=== PATIENT | female | born 1950 | race African-American/Black ===

== ENCOUNTER → 2020-08-03 10:59 | Outpatient (CLI) | payer MEDICARE, SELFPAY ==
--- NOTE | ~2020-08-03 | MM_ITS ---
EXAMINATION: MM screening elvira BI w jennifer HISTORY: Screening TECHNIQUE: Craniocaudal and mediolateral oblique 3-D tomosynthesis images were obtained and synthetic 2-D images were generated. CAD analysis was submitted and interpreted. COMPARISON: Comparison to multiple prior studies sequentially, with oldest reviewed study dated 09/2014. BREAST PARENCHYMAL COMPOSITION: There are scattered areas of fibroglandular density. FINDINGS: There is no evidence of suspicious mass, calcification, or architectural distortion to sugg est malignancy in either breast. There has been no suspicious interval change. IMPRESSION: 1. No mammographic evidence of malignancy. 2. Recommend routine screening mammography in one year. BI-RADS Category 1: Negative Reviewed, dictated and finalized at location A. MIC PROSPECTING OBSERVER
== END ==
PROVIDERS: PCP Family Medicine; Visit Provider Obstetrics & Gynecology
DX: Z12.31 Encounter for screening mammogram for malignant neoplasm of breast (principal)
CPT/HCPCS: 77063; 77067

== ENCOUNTER 2020-10-13 10:54 | Outpatient (CLI) | payer MEDICARE, SELFPAY ==
--- NOTE | ~2020-10-13 | US_ITS ---
EXAMINATION: US venous doppler LE RT DATE: 10/13/2020 11:36 INDICATION: Right lower limb swelling TECHNIQUE: Grayscale ultrasound images without and with compression and Doppler ultrasound images of the right lower extremity veins were obtained. COMPARISON: None. FINDINGS: The visualized portions of right common femoral vein, profunda (deep) femoral vein, femoral vein, pop liteal vein, peroneal trunk, posterior tibial veins, peroneal veins, gastrocnemius vein and greater s aphenous vein outflow are patent. IMPRESSION: 1. No deep venous thrombosis in the right lower limb. Reviewed, dictated and finalized at location B.
--- NOTE | ~2020-10-13 | XR_ITS ---
EXAMINATION: XR knee RT 3V DATE: 10/13/2020 11:39 INDICATION: Right knee pain. TECHNIQUE: 3 views of right knee were obtained. COMPARISON: None. FINDINGS: Bone alignment is normal. No fracture. There is mild tricompartmental osteoarthritis. There is a small knee joint effusion. IMPRESSION: 1. Mild right knee osteoarthritis. 2. Small right knee joint effusion. Reviewed, dictated and finalized at location A.
== END 2020-10-13 10:55 | disposition home or self-care (01) ==
LOC: ANHIMG 11:03
PROVIDERS: PCP Family Medicine; Visit Provider Family Medicine
DX: M79.89 Other specified soft tissue disorders (principal); M17.11 Unilateral primary osteoarthritis, right knee; M25.461 Effusion, right knee
CPT/HCPCS: 73562; 93971

== ENCOUNTER → 2021-05-05 12:32 | Outpatient (CLI) | payer MEDICARE, SELFPAY ==
--- NOTE | ~2021-05-05 | US_ITS ---
EXAMINATION: US renal BI EXAM DATE: 05/05/2021 12:52 INDICATION: Stage 3b CKD . TECHNIQUE: Multiple grayscale and Doppler images of the kidneys were obtained (by a technologist who performed the scan) and subsequently reviewed. There is no prior study for comparison. FINDINGS: Mild bilateral renal cortical thinning. Right kidney: There is normal contour and mildly increased echogenicity. It measures 8.9 x 5.2 x 4.7 centimeters. There are 2 anechoic right renal lesions, largest measuring 2 cm, consistent with cysts . There is no hydronephrosis. Left kidney: There is normal contour and mildly increased echogenicity. It measures 10.1 x 5.8 x 5.4 centimeters. There are no focal renal lesions identified. There is no hydronephrosis. Bladder unremarkable. IMPRESSION: 1. Mildly increased renal echogenicity, medical renal disease. 2. Mild renal atrophy. Reviewed, dictated and finalized at location A.
== END ==
PROVIDERS: Visit Provider Internal Medicine Nephrology
DX: N18.32 Chronic kidney disease, stage 3b (principal); N26.1 Atrophy of kidney (terminal)
CPT/HCPCS: 76775

== ENCOUNTER → 2021-11-30 11:07 | Outpatient (CLI) | payer MEDICARE, SELFPAY ==
--- NOTE | ~2021-11-30 | MM_ITS ---
EXAMINATION: MM screening elvira BI w jennifer HISTORY: Screening mammogram TECHNIQUE: Craniocaudal and mediolateral oblique 3-D tomosynthesis images were obtained and synthetic 2-D images were generated. CAD analysis was submitted and interpreted. COMPARISON: 08/03/2020, 07/14/2018, 05/27/2017 bilateral screening mammogram examinations BREAST PARENCHYMAL COMPOSITION: There are scattered areas of fibroglandular density. FINDINGS: There is a circumscribed 7 mm opacity deep in the posterior upper outer quadrant of the rig ht breast. Diagnostic right mammogram and targeted right breast ultrasound examination are recommende d. Otherwise there is is no evidence of suspicious mass, calcification, or architectural distortion to s uggest malignancy in either breast. There has been no other suspicious interval change. IMPRESSION: 1. 7 mm mass in posterior upper outer right breast 2. Diagnostic right mammogram and targeted right breast ultrasound examination are recommended BI-RADS Category 0: Incomplete: Needs additional imaging evaluation. Reviewed, dictated and finalized at location A.
== END ==
PROVIDERS: PCP Family Medicine; Visit Provider Obstetrics & Gynecology
DX: Z12.31 Encounter for screening mammogram for malignant neoplasm of breast (principal); R92.8 Other abnormal and inconclusive findings on diagnostic imaging of breast
CPT/HCPCS: 77063; 77067

== ENCOUNTER → 2021-12-22 09:00 | Outpatient (CLI) | payer MEDICARE, SELFPAY ==
--- NOTE | ~2021-12-22 | MMUS_ITS ---
EXAMINATION: MM diagnostic elvira RT w jennifer, US breast RT limited HISTORY: Follow-up right breast mass TECHNIQUE: Additional 3-D tomosynthesis images of the right breast were performed and synthetic 2-D i mages were generated. CAD analysis was submitted and interpreted. High resolution Limited right breas t ultrasound was performed. COMPARISON: Comparison to multiple prior studies sequentially, with oldest reviewed study dated 02/16. BREAST PARENCHYMAL COMPOSITION: Breast composed of scattered areas of fibroglandular density FINDINGS: MAMMOGRAPHIC FINDINGS: There is a mass in the upper outer quadrant of the right breast posteriorly with circumscribed margin s and central lucency. No suspicious calcifications or architectural distortion. ULTRASOUND: Limited right breast ultrasound: At 10-11:00, 15 cm from the nipple there is a 7 mm cyst correspondin g to the mammographic finding. No suspicious sonographic abnormalities to suggest malignancy. IMPRESSION: 1. No evidence for malignancy in the right breast. 2. Routine yearly screening mammogram and regular clinical breast examination are recommended. BI-RADS Category 2: Benign finding(s). Reviewed, dictated and finalized at location A. IMPRESSION: 1. No evidence for malignancy in the right breast. 2. Routine yearly screening mammogram and regular clinical breast examination a re recommended. BI-RADS Category 2: Benign finding(s).
== END ==
PROVIDERS: PCP Family Medicine; Visit Provider Obstetrics & Gynecology
DX: R92.8 Other abnormal and inconclusive findings on diagnostic imaging of breast (principal)
CPT/HCPCS: 76642; 77061; 77065; G0279

== ENCOUNTER 2022-07-11 17:31 | Inpatient (IN) | payer MEDICARE, SELFPAY ==
--- NOTE | ~2022-07-11 | XR_ITS ---
Supine and upright views of the abdomen Clinical history: NG tube placement Findings: NG tube in satisfactory position, tip in the stomach. Several mildly dilated small bowel lo ops are present. No free air evident. No abnormal mass lesion or calcification is seen. Osseous struc tures are intact. Impression: NG tube in place. Possible small bowel obstruction. Reviewed, dictated and finalized at [facility]. GER TRANSPLANT Impression: NG tube in place. Possible small bowel obstruction.
--- NOTE | ~2022-07-11 | CT_ITS ---
EXAMINATION: CT abdomen pelvis wo con DATE: 07/11/2022 21:08 INDICATION: n/v/d andominal pain TECHNIQUE: Computed tomography (CT) of the abdomen and pelvis was performed without intravenous contr ast. Automated exposure control and iterative reconstruction technique were employed. The dose-length product was 1069.01 mGy-cm. COMPARISON: None. FINDINGS: Lower thorax: Mild dependent atelectasis/scar. Coronary artery and aortic valve calcification. Liver: Normal. Biliary/Gallbladder: Cholelithiasis. No bile duct dilation. Pancreas: No mass or duct dilation. Spleen: Normal. Adrenals:No mass. Kidneys: Left midpole cyst. Hemorrhagic or proteinaceous right lower pole cyst. Additional hypodensit ies that are too small to characterize. No obstructing calculus. No hydronephrosis. GI tract: Diffusely dilated small bowel with interloop fluid. No pneumatosis. No portal venous gas. T ransition point in the right mid abdomen (image 121/213). Normal appendix. Mesentery/Peritoneum: Small volume ascites. No mass or free air. Retroperitoneum: No mass. Atherosclerotic abdominal aortic and/or arterial calcifications. Pelvis: Decompressed urinary bladder. Surgically absent uterus. Soft Tissues: Soft tissues and body wall unremarkable. Bones: Rounded lucencies in multiple vertebral bodies. IMPRESSION: 1. High-grade small bowel obstruction, transition point in the mid right abdomen, possibly secondary to adhesion. 2. Multiple lytic vertebral body lesions, correlate with history of malignancy. Consider nuclear medi cine bone scanning for further evaluation. Reviewed, dictated and finalized at location K. TER IMPRESSION: 1. High-grade small bowel obstruction, transition point in the mid right abdome n, possibly secondary to adhesion. 2. Multiple lytic vertebral body lesions, correlate with history of malignancy. Consider nuclear medicine bone scanning for further evaluation.
--- NOTE | ~2022-07-11 | XR_ITS ---
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 Comparison: 10/08/2004. RESULT: Lines, tubes, and devices: None. Lungs and pleura: Slightly decreased lung volumes with senescent changes. Cardiomediastinal silhouette: Stable. Other: No acute osseous finding. Loops of mildly dilated small bowel in the upper abdomen. IMPRESSION: No acute cardiopulmonary process. Dilated small bowel loops in the upper abdomen, consider abdominal radiograph series for further evaluation. Reviewed, dictated and finalized at location K. NG MACHINE OPERATOR IMPRESSION: No acute cardiopulmonary process. Dilated small bowel loops in the upper abdome n, consider abdominal radiograph series for further evaluation.
--- NOTE | ~2022-07-11 | XR_ITS ---
XR abdomen/kub 1V 07/15/2022 10:25 Indication: Bowel obstruction follow-up Procedure: AP portable abdomen Comparison: 07/12/2022 Findings: Decreased small bowel distention since prior examination. There is gas throughout the colon . Lung bases unremarkable. Moderate lumbar spondylosis. No abnormal calcifications. No evidence for o rganomegaly. Impression: 1: Improved small bowel distention which may represent resolving ileus or partial obstruction. Reviewed, dictated and finalized at location A. ERNMAKER WOOD Impression: 1: Improved small bowel distention which may represent resolving ileus or parti al obstruction.
--- NOTE | ~2022-07-11 | XR_ITS ---
EXAMINATION: XR sm bowel follow through DATE: 07/12/2022 13:25 INDICATION: Small bowel obstruction TECHNIQUE: Drum Worker radiograph(s) of the abdomen was/were obtained. Oral contrast was administered, and sequential radiographs of the abdomen were obtained until oral contrast was noted to be in the proxi mal colon. COMPARISON: None. FINDINGS: Drum Worker radiograph demonstrates the nasogastric tube in the gastric antrum. Transit time from the stomach to proximal colon was approximately three hours. There are multiple persistently dilated loops of small bowel. No tethering or abnormal mass effect observed. IMPRESSION: 1. Dilated small bowel, consistent with partial obstruction. Reviewed, dictated and finalized at location A. NESS MANAGEMENT ANALYST
--- NOTE | ~2022-07-11 | NM_ITS ---
EXAMINATION: NM bone scan whole body DATE: 07/16/2022 15:29 INDICATION: Bone lesions TECHNIQUE: 25.9 mCi Tc-99m HDP was administered intravenously. Delayed whole-body scintigrams were o btained. COMPARISON: CT abdomen and pelvis dated 07/11/2022 FINDINGS: Mild likely degenerative joint centered uptake at the bilateral sternoclavicular and acromioclavicula r joints, the bilateral hands and wrists and bilateral knees as well as at the right elbow. Mild upta ke along the lateral margins of the thoracic spine corresponding to prominent bridging endplate osteo phytes consistent with diffuse idiopathic skeletal hyperostosis (DISH). Increased likely due to cente red uptake at the left anterior side of the lower cervical spine which could be related to additional degenerative endplate osteophytes or disc disease. Mild uptake associated with severe facet osteoart hritis bilaterally at the lower lumbar spine. No evident foci of significant increased uptake central ly at the L5 and L1 vertebral bodies to correspond to the lytic lesion seen on the prior CT. No other suspicious foci of abnormal bone uptake. IMPRESSION: 1. Typical pattern of scattered likely degenerative joint and disc centered uptake as detailed above. No suspicious foci of increased uptake corresponding to the lytic lesion seen centrally at the L1 an d L5 vertebral bodies. It should be noted however that bone scan can have low sensitivity for either multiple myeloma or lytic metastatic disease. Of note the larger lesion at L5 demonstrates central fa t attenuation on the prior CT images which would favor a hemangioma. Could also consider further eval uation with SPEP/UPEP levels. Reviewed, dictated and finalized at location A. ER GILL NET IMPRESSION: 1. Typical pattern of scattered likely degenerative joint and disc centered upt [place] as detailed above. No suspicious foci of increased uptake corresponding to the lytic lesion seen centrally at the L1 and L5 vertebral bodies. It should be noted however that bone scan can have low sensitivity for either multiple myel rose marie or lytic metastatic disease. Of note the larger lesion at L5 demonstrates c entral fat attenuation on the prior CT images which would favor a hemangioma. C ould also consider further evaluation with SPEP/UPEP levels.
[2022-07-11 17:42] VITALS: BP 107/51; PULSE 116; RESP 20; TEMP 37.1; O2SAT 100
--- NOTE | 2022-07-11 17:45 | ECG_ITS ---
Measurements Intervals [place] Rate: 110 P: 37 GA: 153 QRS: -12 QRSD: 89 T: 98 QT: 305 QTc: 413 Interpretive Statements SINUS TACHYCARDIA LEFT VENTRICULAR HYPERTROPHY AND ST-T CHANGE BORDERLINE R WAVE PROGRESSION, ANTERIOR LEADS CONSIDER INFERIOR INFARCT, AGE INDETERMINATE BASELINE ARTIFACT- V6 ABNORMAL ECG NO PREVIOUS ECG AVAILABLE FOR COMPARISON Electronically Signed On 07-11-2022 20:43:54 MAILROOM COURIER by Wilson Garza D.O.
[2022-07-11 19:17] LABS: Alanine Aminotransferase 38 U/L (6-35); Albumin Level 4.5 g/dL (3.5-5.1); Alkaline Phosphatase 61 U/L (38-126); Anion Gap 8 mmol/L (8-16); Aspartate Amino Transferase 33 U/L (14-36); Bilirubin,Total 0.7 mg/dL (0.2-1.3); Blood Urea Nitrogen 34 mg/dL (7-17); Calcium 10.5 mg/dL (8.4-10.2); Carbon Dioxide 28 mmol/L (22-30); Chloride 97 mmol/L (98-107); Estimated CRCL calculation 13 ml/min; Estimated Glomerular Filt Rate 14; Glucose 147 mg/dL (65-110); Lipase 244 U/L (23-300); Potassium 4.9 mmol/L (3.4-5.0); Sodium 133 mmol/L (137-145)
[2022-07-11 19:21] LABS: Basophils Percent Auto 0.2 % (0.2-1.2); Eosinophils Percent Auto 0.4 % (0-4.4); Hemoglobin 11.3 g/dL (12.0-15.0); Immature Granulocyte Absolute 0.03 K/mm3 (0.00-0.031); Immature Granulocyte Percent A 0.3 % (0-0.5); Lymphocytes Absolute Auto 1.75 K/mm3 (0.9-3.2); Lymphocytes Percent Auto 19.3 % (18.3-44.2); Mean Corpuscular HGB Conc 29.7 g/dl (32-36); Mean Corpuscular Hemoglobin 21.9 pg (26-34); Mean Corpuscular Volume 73.8 fl (80-100); Mean Platelet Volume 10.3 fl (7.4-10.4); Monocytes Absolute Auto 0.5 K/mm3 (0.1-0.6); Monocytes Percent Auto 5.2 % (2.6-8.5); Neutrophils Absolute Auto 6.7 K/mm3 (1.3-6.7); Neutrophils Percent Auto 74.6 % (45.5-73.1); Platelet Count Result 360 k/mm3 (150-375); Red Blood Count 5.15 M/mm3 (4.2-5.4); Red Cell Distribution Width 13.6 % (11.5-14.5); White Blood Count 9.1 K/mm3 (4.5-10.0)
[2022-07-11 19:57] LABS: Hypochromasia 1+ (NORMAL); Microcytosis 1+ (NORMAL); Ovalocytes 2+ (NORMAL); Platelet Estimate Adequate (Adequate); Poikilocytosis 2+ (NORMAL); Schistocytes None Seen (NORMAL)
--- NOTE | 2022-07-11 20:55 | ED.GENADULT ---
HPI - General Adult General Chief complaint: Nausea/Vomiting/Diarrhea Stated complaint: vomiting, diarrhea Time Seen by Provider: 07/11/22 20:43 History of Present Illness HPI narrative: 72-year-old female with history of chronic kidney disease, high cholesterol, type 2 diabetes and hypertension presenting the emergency department for evaluation of worsening nausea vomiting and diarrhea. Patient was diagnosed with COVID on 06/27 and was started on Paxil over the 06/29. Patient reports since starting the Paxil that she has had persistent nausea vomiting and diarrhea. Patient reports decreased p.o. intake and decreased urine output. Patient does follow-up with Dr. Diaz for chronic kidney disease. Patient reports a prior surgical history of hysterectomy in 1984. Related Data Home Medications Medication Instructions Recorded Confirmed aspirin 81 mg tablet,delayed 81 mg PO DAILY 01/30/21 04/17/22 release cholecalciferol (vitamin D3) 50 50 mcg PO DAILY 01/30/22 04/17/22 mcg (2,000 unit) tablet Allergies Allergy/AdvReac Type Severity Reaction Status Date / Time iohexol Allergy Mild Vomiting Verified 04/17/22 10:46 [From CONTRAST - CT, XRAY] codeine Allergy Unknown Other Verified 04/17/22 10:46 Review of Systems Review of Systems: CONSTITUTIONAL: Denies fever, chills, or sweats. EYES: Denies visual changes, redness, or discharge. ENT: Denies rhinorrhea, congestion, sore throat, or otalgia. CARDIOVASCULAR: Denies chest pain, palpitations, or edema. RESPIRATORY: Denies cough or dyspnea. GASTROINTESTINAL: See HPI GENITOURINARY: Denies dysuria or hematuria. SKIN: Denies rash or itching. MUSCULOSKELETAL: Denies back pain, joint pain, or myalgia. NEUROLOGIC: Denies headache, numbness, or weakness. [facility] Past Medical History Medical History Arthritis CKD (chronic kidney disease) stage 3, GFR 30-59 ml/min Dyslipidemia Essential (primary) hypertension GERD without esophagitis History of deep venous thrombosis (DVT) of distal vein of left lower extremity 1990s Type 2 diabetes mellitus without complication, without long-term current use of insulin Vitamin D deficiency Surgical History Surgical History History of hysterectomy 1985 History of superficial parotidectomy 1999 - benign tumor History of toe surgery 2004 - Right foot 5th toe surgery Hx of lumbosacral spine surgery 1994 Family History Family History Grandparent Diabetes mellitus Sibling Hypertension Father Cerebrovascular accident Mother Carcinoma of colon Other Family history of coronary artery disease Social History Social History Smoking status: Never smoker Second hand tobacco smoke exposure: No Alcohol intake: current Alcohol use details: occasionnally Substance use: never Substance use type: does not use Gender identity (if verbalized by the patient): Female Agree to blood products: Yes Exam Narrative: APPEARANCE: Well appearing, no pain, no distress, well-nourished. HEAD: normocephalic, atraumatic. EYES: PERRLA/EOMI, conjunctivae clear. NOSE: Normal no drainage EARS:TMS clear with good light reflex. NECK: Supple. No adenopathy, no masses. RESPIRATORY: Airway patent, respirations nonlabored. Clear to auscultation bilaterally, no rales, rhonchi, wheezing. CARDIOVASCULAR: Regular rate and rhythm without murmurs rubs or gallops. ABDOMINAL: Soft, nondistended, normal bowel sounds, epigastric tenderness to palpation MUSCULOSKELETAL: Moves all extremities. Strength/ROM intact, No edema, No calf tenderness. NEURO: Alert. Cranial nerves II through XII intact. Good gait. Good coordination SKIN: Warm, dry. Normal Color Course Course Emergency Course: Patient does have acute kidney injury
[2022-07-11] MEDS: ONDANSETRON INJ 4 MG/2 ML VIAL IV PUSH ×2 (21:06→22:21)
[2022-07-11] MEDS: SODIUM CHLORIDE 0.9% IV 1,000 ML 999 ML IV CONT (21:06)
[2022-07-11] MEDS: PANTOPRAZOLE SODIUM IV 40 MG VIAL IV PUSH (21:07)
[2022-07-11 21:27] LABS: Add Urine Microscopic? YES; Appearance Urine Slightly Cloudy (Clear); Bilirubin Urine Negative (Negative); Blood Urine Negative (Negative); Glucose Urine UA Negative (Negative); Ketones Urine Trace mg/dL (Negative); Leukocyte Esterase Ur 1+ LEU/UL (Negative); Nitrate Urine Negative (Negative); Protein Urine Trace mg/dL (Negative); Specific Grav Ur >= 1.030 (1.001-1.035); Urobilinogen Urine 0.2 mg/dL (<2.0)
[2022-07-11 21:30] LABS: RBC Urine 0-2 /hpf (0-2); Squamous Epithelial Cell Urine Few /hpf (Few); WBC Urine 0-3 /hpf (0-3)
[2022-07-11 21:31] LABS: Bacteria Urine Trace /hpf
[2022-07-11 21:32] LABS: Color Urine Yellow (Yellow)
--- NOTE | 2022-07-11 21:51 | PM.IMHP ---
H&P: HPI History of Present Illness Date/Time: 07/11/22 21:51 Chief Complaint: Abdominal pain Narrative: 72-year-old female past medical history significant for chronic kidney disease, hypertension, type 2 diabetes mellitus, dyslipidemia. Patient presents to the emergency room due to abdominal pain, nausea, vomiting she was diagnosed with COVID on 06/28 and was started on treatment for these has been having nausea vomiting and diarrhea ever since. Preliminary workup was significant for creatinine of 3.8. A CT of abdomen and pelvis is reported as: FINDINGS: Lower thorax: Mild dependent atelectasis/scar. Coronary artery and aortic valve calcification. Liver: Normal.? Biliary/Gallbladder: Cholelithiasis. No bile duct dilation. Pancreas: No mass or duct dilation. Spleen: Normal. Adrenals:No mass. Kidneys: Left midpole cyst. Hemorrhagic or proteinaceous right lower pole cyst. Additional hypodensities that are too small to characterize. No obstructing calculus. No hydronephrosis. GI tract: Diffusely dilated small bowel with interloop fluid. No pneumatosis. No portal venous gas. Transition point in the right mid abdomen (image 121/213). Normal appendix. Mesentery/Peritoneum: Small volume ascites. No mass or free air. Retroperitoneum: No mass. Atherosclerotic abdominal aortic and/or arterial calcifications. Pelvis: Decompressed urinary bladder. Surgically absent uterus. Soft Tissues: Soft tissues and body wall unremarkable. Bones:? Rounded lucencies in multiple vertebral bodies. IMPRESSION: 1. High-grade small bowel obstruction, transition point in the mid right abdomen, possibly secondary to adhesion. 2. Multiple lytic vertebral body lesions, correlate with history of malignancy. Consider nuclear medicine bone scanning for further evaluation. Patient has been admitted for further evaluation management treatment. Review of Systems Review of Systems: Nausea, vomiting, diarrhea abdominal pain. Constitutional: Constitutional: Denies chills, Denies fever(s), Denies malaise and Denies weakness Eyes: Eyes: Denies change in vision ENT: Denies dysphagia, Denies vertigo, Denies dizziness and Denies odynophagia Cardiovascular: Cardiovascular: Denies chest pain, Denies irregular heart rhythm, Denies leg edema, Denies lightheadedness and Denies palpitations Respiratory: Respiratory: Denies chest congestion, Denies cough, Denies pain on inspiration, Denies dyspnea and Denies dyspnea on exertion Gastrointestinal: Gastrointestinal: Reports abdominal pain, Denies dyspepsia, Denies heartburn, Reports diarrhea, Reports nausea and Reports vomiting Genitourinary: Genitourinary: Denies dysuria Musculoskeletal: Musculoskeletal: Denies back pain, Denies joint swelling and Denies limited range of motion Integumentary/Breasts: Skin/Breast: Denies rash Neurologic: Denies vertigo, Denies dizziness, Denies focal weakness and Denies Sensory deficit (Neuro) Psychiatric: Psychiatric: Reports no additional psychiatric complaints and Reports as per HPI Endocrine: Endocrine: Denies cold intolerance, Denies flushing, Denies heat intolerance, Denies polyphagia, Denies polydipsia and Denies palpitations Hematologic/Lymphatic: Hematologic/Lymphatic: Reports no additional hematologic/lymphatic complaints and Reports as per HPI Allergic/Immunologic: Allergic/Immunologic: Reports no additional allergic/immunologic complaints and Reports as per HPI PMFSH Past Medical History Medical History Arthritis CKD (chronic kidney disease) stage 3, GFR 30-59 ml/min Dyslipidemia Essential (primary) hypertension GERD without esophagitis History of deep venous thrombosis (DVT) of distal vein of left lower extremity 1990s Type 2 diabetes mellitus without complication, without long-term current use of insulin Vitamin D deficiency Surgical History Surgical History
[2022-07-11 22:02] VITALS: BP 116/46; PULSE 64
[2022-07-11 22:06] VITALS: BP 102/68; PULSE 94
[2022-07-11 22:08] VITALS: BP 120/61; PULSE 103
[2022-07-11] MEDS: SODIUM CHLORIDE 0.9% IV 1,000 ML 100 ML IV CONT (22:21)
[2022-07-11 23:09] LABS: Influenza A QL RT-PCR Negative (Negative); Influenza B QL RT-PCR Negative (Negative); SARS-CoV-2 RNA PCR Negative
[2022-07-11 23:34] LABS: INR 1.1; Prothrombin Time 13.6 Seconds (11.1-14.7)
[2022-07-11 23:35] LABS: Partial Thromboplastin Time 26.5 SECONDS (22.3-36.8)
[2022-07-12 07:50] VITALS: BP 122/62; PULSE 86; RESP 18; O2SAT 97
--- NOTE | 2022-07-12 09:22 | PM.CNGS ---
Assessment and Plan Assessment and plan (1) SBO (small bowel obstruction): Code(s): K56.609 - Unspecified intestinal obstruction, unspecified as to partial versus complete obstruction Status: Acute Assessment and Plan: CT reviewed and discussed with the patient in detail. There is evidence of a small bowel obstruction with transition point in the right mid abdomen. Patient already clinically improving after NG tube was placed. She does have a remote history of abdominal surgery with a partial hysterectomy that could suggest adhesions as a possible cause. Will order a water soluble small bowel follow through to further evaluate the small bowel obstruction. Continue conservative treatment with NG tube, bowel rest, IV fluids, and analgesics as needed while awaiting results. If contrast moves through to the colon, then we can remove her NG tube and start a liquid diet. Discussed with the patient that this typically resolves with conservative measures, but she could ultimately require exploratory surgery if this does not improve. (2) Acute kidney injury superimposed on chronic kidney disease: Code(s): N17.9 - Acute kidney failure, unspecified; N18.9 - Chronic kidney disease, unspecified Status: Acute Assessment and Plan: Follows with nephrology for chronic kidney disease. Creatinine at baseline is typically between 1.2-1.6. Creatinine now 3.8, likely related to dehydration/vomiting/diarrhea. Continue IV fluids, monitor labs. (3) Type 2 diabetes mellitus without complication, without long-term current use of insulin: Code(s): E11.9 - Type 2 diabetes mellitus without complications Status: Acute (4) Essential (primary) hypertension: Code(s): I10 - Essential (primary) hypertension Status: Acute (5) Dyslipidemia: Code(s): E78.5 - Hyperlipidemia, unspecified Status: Acute (6) Lesion of vertebra: Code(s): M89.9 - Disorder of bone, unspecified Status: Acute Assessment and Plan: Incidentally noted on CT, multiple lytic vertebral body lesions. No known hx malignancy. Management per Hospitalist, discussed with patient to f/u with PCP as outpatient. Plan I have discussed the patient's case and plan of care with Dr. Pitt. Thank you for allowing us to see the patient in consultation and we will continue to follow along with you. History of Present Illness Consult details Consult date: 07/12/22 Reason for consult: other (Small-bowel obstruction) Requesting physician: Tera Gonzalez MD Narrative: This is a 72-year-old female with a history of hypertension, type 2 diabetes mellitus, and chronic kidney disease, who presented to the emergency department with complaints of nausea, vomiting, diarrhea, and abdominal pain. She reportedly tested positive for COVID on 06/27/2022. She reports cough and congestion initially. She called her PCP, who started her on a 5 day course of Paxilovid. When starting this medication, she began having diarrhea reportedly 3-4 times daily. She associated this with the possible side effect of the medication. She has continued to have diarrhea over the past 2 weeks, but reports this has improved. She began to have nausea and multiple episodes of vomiting daily over this past weekend. She was unable to keep any foods or liquids down. Then, 3 days ago she began to develop abdominal pain that at times was localized to the left side of her abdomen and at times generalized. Denies ever having this abdominal pain in the past. She continued to have vomiting daily with persistent abdominal pain, therefore decided to come into the ER yesterday evening. Labs showed a white blood cell count 9100. With her chronic kidney disease her creatinine at baseline is between 1.2-1.6. In the ER, her labs showed a creatinine of 3.8, BUN 34, sodium 133. CT scan of the abdomen and pelvis suggests a high-grade small-bowel obstruction with transition p
[2022-07-12 09:43] VITALS: BP 119/50; PULSE 74; RESP 16; O2SAT 96
[2022-07-12] MEDS: ONDANSETRON INJ 4 MG/2 ML VIAL IV PUSH ×2 (10:44→18:32)
[2022-07-12] MEDS: SODIUM CHLORIDE 0.9% IV 1,000 ML 100 ML IV CONT (10:45)
--- NOTE | 2022-07-12 11:10 | PC.NURSE ---
NG tube was at 42, not attached to nares advanced to 65, checked by xray
[2022-07-12 14:20] VITALS: PULSE 72; RESP 16; O2SAT 97
[2022-07-12 14:30] VITALS: BP 132/51; PULSE 94; RESP 14; TEMP 36.5; O2SAT 100
--- NOTE | 2022-07-12 15:02 | ADMGEN ---
This patient, Marbella Rivero I, was admitted to 3 [facility] Surg Room 304-01. Patient/family oriented to hospital policies and general routines including ID bracelet, bed and alarms, visiting hours, pain management, procedures, bathroom and other care routines, personal items, smoking policy, room service/diet, and visiting hours. Information on how to activate the Rapid Response Team has been discussed. Patient/Family are encouraged to report perceived risks to care and to ask questions if they do not understand what they are told or what they should do.
--- NOTE | 2022-07-12 15:27 | PM.IMPN ---
Progress Note: A&P Assessment and Plan (1) SBO (small bowel obstruction): Code(s): K56.609 - Unspecified intestinal obstruction, unspecified as to partial versus complete obstruction Status: Acute Assessment and Plan: NPO NG to low intermittent suction Daily intake and output Continue normal saline IV Daily BMP, phosphorus magnesium Surgery consult CT abdomen and pelvis reviewed, high-grade small-bowel obstruction (2) Acute kidney injury superimposed on chronic kidney disease: Code(s): N17.9 - Acute kidney failure, unspecified; N18.9 - Chronic kidney disease, unspecified Status: Acute Assessment and Plan: Likely pre renal azotemia Receiving IV fluids Follow-up BMP in a.m. (3) N&V (nausea and vomiting): Code(s): R11.2 - Nausea with vomiting, unspecified Status: Acute Assessment and Plan: Supportive care High-grade obstruction (4) GERD without esophagitis: Code(s): K21.9 - Gastro-esophageal reflux disease without esophagitis Status: Acute Assessment and Plan: PPI (5) Type 2 diabetes mellitus without complication, without long-term current use of insulin: Code(s): E11.9 - Type 2 diabetes mellitus without complications Status: Acute Assessment and Plan: Insulin sliding scale as needed Subjective Date/time seen: 07/12/22 15:27 Review of Systems Review of Systems: ROS negative except above Exam Narrative: Sitting in bed Const: General: comfortable, no acute distress, well developed, alert, awake and average body habitus Nutritional Appearance: average body habitus Orientation/consciousness: patient oriented x3 HENMT: Head: normal to inspection, normocephalic and atraumatic Ears: hearing grossly normal bilaterally Face/Nose/Sinus: normal facial exam Face and sinus: normal facial exam Eyes: General: appearance normal, both eyes and all related structures Pupils: Equal, round and reactive pupils present EOM: EOMs intact bilaterally Neck: Neck: full ROM, no lymphadenopathy and no JVD Thyroid: thyroid normal Lymphatic: no lymphadenopathy noted Resp: Effort & Inspection: normal respiratory effort and able to speak in complete sentences Auscultation: clear to auscultation bilaterally Cardio: Jugular venous distension: no JVD Rate: regular rate Rhythm: regular rhythm Heart sounds: S1 normal heart sound present and S2 normal heart sound present GI: Auscultation: Hyperactive bowel sounds present : General: Yes deferred Skin: Rashes: no rashes Wounds: no wounds Neuro: General: patient oriented x3, CN's II-XI intact bilaterally and Unable to assess gait Cranial nerves: Yes CN's II-XII intact bilaterally and Yes Equal, round and reactive pupils present Cognition (Neuro): normal cognition Speech: normal speech Gait exam (Neuro): Unable to assess gait Motor exam (neuro): 5/5 motor strength present throughout Sensory Exam: No Sensory deficit (Neuro) Extrem: General: normal to inspection, full ROM, no joint enlargement and no pedal edema Objective Data Vital Signs Vital Signs: Vital Signs - 24 hr 07/11/22 17:42 07/11/22 22:02 07/11/22 22:06 Temperature 98.8 F Pulse Rate 116 H 64 94 Respiratory Rate 20 Blood Pressure 107/51 L 116/46 L 102/68 Pulse Oximetry 100 Oxygen Delivery Room Air 07/11/22 22:08 07/12/22 07:50 07/12/22 09:43 Temperature Pulse Rate 103 H 86 74 Respiratory Rate 18 16 Blood Pressure 120/61 122/62 119/50 L Pulse Oximetry 97 96 Oxygen Delivery 07/12/22 14:20 Temperature Pulse Rate 72 Respiratory Rate 16 Blood Pressure Pulse Oximetry 97 Oxygen Delivery Intake/Output Intake/Output: Intake & Output 07/09/22 07/10/22 07/11/22 07/12/22 23:59 23:59 23:59 23:59 Intake Total 1999 50 Output Total 999 Balance 1999 -950 Meds/Results Medications: Active Medications Generic Name Dose Route Start Last Admin Trade Name Gerald Deal
[2022-07-12 21:27] VITALS: BP 133/49; PULSE 101; RESP 14; TEMP 37.2; O2SAT 97
[2022-07-13 02:08] LABS: Glucose Point of Care 119 mg/dl (65-105)
[2022-07-13] MEDS: SODIUM CHLORIDE 0.9% IV 1,000 ML 100 ML IV CONT ×3 (05:31→16:16)
[2022-07-13 05:39] VITALS: BP 138/48; PULSE 90; RESP 14; TEMP 36.6; O2SAT 100
[2022-07-13 07:05] LABS: Hematocrit 27.8 % (37.0-47.0); Hemoglobin 8.2 g/dL (12.0-15.0); Mean Corpuscular HGB Conc 29.5 g/dl (32-36); Mean Corpuscular Hemoglobin 21.4 pg (26-34); Mean Corpuscular Volume 72.4 fl (80-100); Mean Platelet Volume 10.2 fl (7.4-10.4); Platelet Count Result 241 k/mm3 (150-375); Red Blood Count 3.84 M/mm3 (4.2-5.4); Red Cell Distribution Width 13.7 % (11.5-14.5); White Blood Count 6.6 K/mm3 (4.5-10.0)
[2022-07-13 07:24] LABS: Anion Gap 7 mmol/L (8-16); Blood Urea Nitrogen 44 mg/dL (7-17); Calcium 9.7 mg/dL (8.4-10.2); Carbon Dioxide 26 mmol/L (22-30); Chloride 107 mmol/L (98-107); Estimated CRCL calculation 15 ml/min; Estimated Glomerular Filt Rate 16; Glucose 103 mg/dL (65-110); Magnesium 1.7 mg/dL (1.6-2.3); Phosphorus 3.9 mg/dL (2.5-4.5); Potassium 4.5 mmol/L (3.4-5.0); Sodium 140 mmol/L (137-145)
[2022-07-13 08:12] LABS: Glucose Point of Care 104 mg/dl (65-105)
[2022-07-13] MEDS: ENOXAPARIN 30 MG/0.3 ML SYRINGE SUB-Q (08:35)
--- NOTE | 2022-07-13 11:35 | PM.PNGS ---
Progress Note: A&P Assessment and Plan (1) SBO (small bowel obstruction): Code(s): K56.609 - Unspecified intestinal obstruction, unspecified as to partial versus complete obstruction Status: Acute Assessment and Plan: Seems to be resolving with nonoperative management. Plan Surgically the patient seems to be doing very well. There is no evidence of a high-grade small-bowel obstruction. She likely has a resolving partial small bowel obstruction which is responding well to nonoperative management. We will go ahead and remove her nasogastric tube today and allow her to start on some clear liquids. IV antibiotics have been stopped. I encouraged her to set up in a chair and ambulate in the hallways as much as possible today. We will plan on advancing her diet as tolerated. Her acute renal injury is improving and her creatinine is down to 3.5 and 3.8. This is being managed by her medical team. We will continue to follow while she is admitted. Subjective Subjective Date/Time Seen: 07/13/22 11:35 Interval history: Patient is now hospital day 2. After being admitted for nausea vomiting abdominal pain with evidence of a partial small-bowel obstruction possibly due to adhesions from prior hysterectomy. She states that her abdominal pain is rather diffuse but minimal. She had a small bowel water-soluble follow-through study performed yesterday which showed contrast into the colon at 3:00 a.m.. She did have some bowel movements last evening but has not had 1 yet today. The bowel movements were nonbloody and diarrhea. Late last evening she did have a minor episode of nausea which responded well to antiemetics. Her nasogastric tube was clamped last evening which she has tolerated well. Review of Systems Review of Systems: All systems reviewed & are unremarkable except as noted in HPI and below ( HPI) Exam Const: General: comfortable and no acute distress HENMT: Mouth: Yes moist mucous membranes Neck: Neck: supple and no JVD Resp: Effort & Inspection: normal respiratory effort Auscultation: clear to auscultation bilaterally Cardio: Rate: regular rate Rhythm: regular rhythm GI: Other: Abdomen is soft and minimally distended. Minimal lower abdominal tenderness. No rebound is noted. No masses or hernias appreciated. Abdominal exam is relatively benign. Neuro: Speech: normal speech Motor exam (neuro): 5/5 motor strength present throughout Extrem: General: normal to inspection Psych: Mental Status: mental status grossly normal Objective Data Vital Signs Vital Signs: Vital Signs - 24 hr 07/12/22 14:20 07/12/22 14:30 07/12/22 21:27 Temperature 36.5 C 37.2 C Pulse Rate 72 94 101 H Respiratory Rate 16 14 14 Blood Pressure 132/51 L 133/49 L Pulse Oximetry 97 100 97 Oxygen Delivery 07/12/22 20:00 07/13/22 05:39 07/13/22 08:30 Temperature 36.6 C Pulse Rate 90 Respiratory Rate 14 Blood Pressure 138/48 L Pulse Oximetry 100 Oxygen Delivery Room Air Room Air Intake/Output Intake/Output: Intake & Output 07/10/22 07/11/22 07/12/22 07/13/22 23:59 23:59 23:59 23:59 Intake Total 1999 50 1999 Output Total 999 Balance 1999 -950 1999 Meds/Results Medications: Active Medications Generic Name Dose Route Start Last Admin Trade Name Freq PRN Reason Stop Dose Admin Dextrose 12.5 gm 07/13/22 02:11 Dextrose 50% 25 Gm/50 Ml Syringe IV PUSH PRN PRN Hypoglycemia Protocol Enoxaparin Sodium 30 mg 07/13/22 09:00 07/13/22 08:35 Enoxaparin 30 Mg/0.3 Ml Syringe SUB-Q 30 mg DAILY TRINA Administration Glucagon 1 mg 07/13/22 02:11 Glucagon For Inj 1 Mg Vial IM PRN PRN Hypoglycemia Protocol Glucose 15 gm 07/13/22 02:11 Glucose Oral Gel 15 Gm Of Glucse In 37.5 Gm Tube PO PRN PRN Hypoglycemia Protocol Sodium Chloride 1,000 mls @ 100 mls/hr 07/11/22 22:00 07/13/22 05:32 Normal Saline
[2022-07-13 12:06] LABS: Glucose Point of Care 96 mg/dl (65-105)
[2022-07-13 14:00] VITALS: BP 116/49; PULSE 75; RESP 20; TEMP 36.4; O2SAT 100
[2022-07-13 16:46] LABS: Glucose Point of Care 158 mg/dl (65-105)
--- NOTE | 2022-07-13 16:46 | PM.IMPN ---
Progress Note: A&P Assessment and Plan (1) SBO (small bowel obstruction): Code(s): K56.609 - Unspecified intestinal obstruction, unspecified as to partial versus complete obstruction Status: Acute Assessment and Plan: Daily BMP, phosphorus magnesium Surgery consult CT abdomen and pelvis reviewed, high-grade small-bowel obstruction Today small bowel obstruction has resolved, patient tolerated diet well (2) Acute kidney injury superimposed on chronic kidney disease: Code(s): N17.9 - Acute kidney failure, unspecified; N18.9 - Chronic kidney disease, unspecified Status: Acute Assessment and Plan: Likely pre renal azotemia, of possible from malignancy, multiple myeloma, Receiving IV fluids Follow-up BMP in a.m. Follow-up protein electrophoresis Consult surveyor helper rod for evaluation (3) N&V (nausea and vomiting): Code(s): R11.2 - Nausea with vomiting, unspecified Status: Acute Assessment and Plan: Supportive care High-grade obstruction Has resolved (4) GERD without esophagitis: Code(s): K21.9 - Gastro-esophageal reflux disease without esophagitis Status: Acute Assessment and Plan: PPI (5) Type 2 diabetes mellitus without complication, without long-term current use of insulin: Code(s): E11.9 - Type 2 diabetes mellitus without complications Status: Acute Assessment and Plan: Insulin sliding scale as needed (6) Lytic bone lesions on xray: Code(s): M89.9 - Disorder of bone, unspecified Status: Acute Assessment and Plan: CT abdomen pelvis shows moderate focal lesion of spine Possible early malignancy, new to rule out multiple myeloma Follow-up nuclear bone scan, protein electrophoresis Subjective Date/time seen: 07/13/22 16:46 Saw and examined patient Patient denies abdomen pain, nausea vomiting. NG tube is removed, patient tolerated diet. Patient denies chest pain, shortness of breath, abdomen pain, dysuria Exam Narrative: Sitting in bed Const: General: comfortable, no acute distress, well developed, alert, awake and average body habitus Nutritional Appearance: average body habitus Orientation/consciousness: patient oriented x3 HENMT: Head: normal to inspection, normocephalic and atraumatic Ears: hearing grossly normal bilaterally Face/Nose/Sinus: normal facial exam Face and sinus: normal facial exam Eyes: General: appearance normal, both eyes and all related structures Pupils: Equal, round and reactive pupils present EOM: EOMs intact bilaterally Neck: Neck: full ROM, no lymphadenopathy and no JVD Thyroid: thyroid normal Lymphatic: no lymphadenopathy noted Resp: Effort & Inspection: normal respiratory effort and able to speak in complete sentences Auscultation: clear to auscultation bilaterally Cardio: Jugular venous distension: no JVD Rate: regular rate Rhythm: regular rhythm Heart sounds: S1 normal heart sound present and S2 normal heart sound present GI: Auscultation: Hyperactive bowel sounds present : General: Yes deferred Skin: Rashes: no rashes Wounds: no wounds Neuro: General: patient oriented x3, CN's II-XI intact bilaterally and Unable to assess gait Cranial nerves: Yes CN's II-XII intact bilaterally and Yes Equal, round and reactive pupils present Cognition (Neuro): normal cognition Speech: normal speech Gait exam (Neuro): Unable to assess gait Motor exam (neuro): 5/5 motor strength present throughout Sensory Exam: No Sensory deficit (Neuro) Extrem: General: normal to inspection, full ROM, no joint enlargement and no pedal edema Objective Data Vital Signs Vital Signs: Vital Signs - 24 hr 07/12/22 21:27 07/12/22 20:00 07/13/22 05:39 Temperature 98.9 F 97.9 F Pulse Rate 101 H 90 Respiratory Rate 14 14 Blood Pressure 133/49 L 138/48 L Pulse Oximetry 97 100 Oxygen Delivery Room Air 07/13/22 08:30 07/13/22 14:00 Temperature 97.6 F Pulse Rate 75 Respirato
[2022-07-13] MEDS: ONDANSETRON INJ 4 MG/2 ML VIAL IV PUSH (20:13)
[2022-07-13 22:00] VITALS: BP 137/58; PULSE 85; RESP 17; TEMP 36.4; O2SAT 97
[2022-07-13 22:03] LABS: Glucose Point of Care 108 mg/dl (65-105)
[2022-07-14] MEDS: ONDANSETRON INJ 4 MG/2 ML VIAL IV PUSH ×3 (03:08→19:22)
[2022-07-14] MEDS: SODIUM CHLORIDE 0.9% IV 1,000 ML 100 ML IV CONT (03:08)
[2022-07-14 06:00] VITALS: BP 130/53; PULSE 89; RESP 18; TEMP 36.6; O2SAT 100
[2022-07-14 07:43] LABS: Alanine Aminotransferase 76 U/L (6-35); Albumin Level 3.7 g/dL (3.5-5.1); Alkaline Phosphatase 55 U/L (38-126); Anion Gap 6 mmol/L (8-16); Aspartate Amino Transferase 69 U/L (14-36); Bilirubin,Total 0.8 mg/dL (0.2-1.3); Blood Urea Nitrogen 34 mg/dL (7-17); Calcium 9.3 mg/dL (8.4-10.2); Carbon Dioxide 25 mmol/L (22-30); Chloride 111 mmol/L (98-107); Estimated CRCL calculation 25 ml/min; Estimated Glomerular Filt Rate 30; Glucose 103 mg/dL (65-110); Potassium 4.4 mmol/L (3.4-5.0); Sodium 142 mmol/L (137-145)
--- NOTE | 2022-07-14 07:46 | PM.IMPN ---
Progress Note: A&P Assessment and Plan (1) SBO (small bowel obstruction): Code(s): K56.609 - Unspecified intestinal obstruction, unspecified as to partial versus complete obstruction Status: Acute Assessment and Plan: Surgery consult CT abdomen and pelvis reviewed, high-grade small-bowel obstruction POA Now small bowel obstruction has resolved, patient tolerated diet well (2) Acute kidney injury superimposed on chronic kidney disease: Code(s): N17.9 - Acute kidney failure, unspecified; N18.9 - Chronic kidney disease, unspecified Status: Acute Assessment and Plan: Likely pre renal azotemia, of possible from malignancy, multiple myeloma, Receiving IV fluids Follow-up BMP in a.m. Cr 2.0 07/14/22 Follow-up protein electrophoresis Consult hand ornament maker for evaluation (3) N&V (nausea and vomiting): Code(s): R11.2 - Nausea with vomiting, unspecified Status: Acute Assessment and Plan: Supportive care High-grade obstruction Has resolved (4) GERD without esophagitis: Code(s): K21.9 - Gastro-esophageal reflux disease without esophagitis Status: Acute Assessment and Plan: PPI (5) Type 2 diabetes mellitus without complication, without long-term current use of insulin: Code(s): E11.9 - Type 2 diabetes mellitus without complications Status: Acute Assessment and Plan: Insulin sliding scale as needed (6) Lytic bone lesions on xray: Code(s): M89.9 - Disorder of bone, unspecified Status: Acute Assessment and Plan: CT abdomen pelvis shows moderate focal lesion of spine Possible early malignancy, new to rule out multiple myeloma pendig nuclear bone scan, protein electrophoresis Consult heme oncologist for evaluation Subjective Date/time seen: 07/14/22 07:46 Patient tolerated diet well, has bowel movement. Denies abdominal pain, chest pain, shortness breast Exam Narrative: Sitting in bed Const: General: comfortable, no acute distress, well developed, alert, awake and average body habitus Nutritional Appearance: average body habitus Orientation/consciousness: patient oriented x3 HENMT: Head: normal to inspection, normocephalic and atraumatic Ears: hearing grossly normal bilaterally Face/Nose/Sinus: normal facial exam Face and sinus: normal facial exam Eyes: General: appearance normal, both eyes and all related structures Pupils: Equal, round and reactive pupils present EOM: EOMs intact bilaterally Neck: Neck: full ROM, no lymphadenopathy and no JVD Thyroid: thyroid normal Lymphatic: no lymphadenopathy noted Resp: Effort & Inspection: normal respiratory effort and able to speak in complete sentences Auscultation: clear to auscultation bilaterally Cardio: Jugular venous distension: no JVD Rate: regular rate Rhythm: regular rhythm Heart sounds: S1 normal heart sound present and S2 normal heart sound present GI: Auscultation: Hyperactive bowel sounds present : General: Yes deferred Skin: Rashes: no rashes Wounds: no wounds Neuro: General: patient oriented x3, CN's II-XI intact bilaterally and Unable to assess gait Cranial nerves: Yes CN's II-XII intact bilaterally and Yes Equal, round and reactive pupils present Cognition (Neuro): normal cognition Speech: normal speech Gait exam (Neuro): Unable to assess gait Motor exam (neuro): 5/5 motor strength present throughout Sensory Exam: No Sensory deficit (Neuro) Extrem: General: normal to inspection, full ROM, no joint enlargement and no pedal edema Objective Data Vital Signs Vital Signs: Vital Signs - 24 hr 07/13/22 08:30 07/13/22 14:00 07/13/22 22:00 Temperature 97.6 F 97.5 F L Pulse Rate 75 85 Respiratory Rate 20 17 Blood Pressure 116/49 L 137/58 L Pulse Oximetry 100 97 Oxygen Delivery Room Air 07/13/22 20:00 07/14/22 06:00 Temperature 97.9 F Pulse Rate 89 Respiratory Rate 18 Blood Pressure 130/53 L Pulse Oximetry 100 Oxygen D
[2022-07-14 08:12] LABS: Glucose Point of Care 111 mg/dl (65-105)
[2022-07-14] MEDS: SIMETHICONE 125 MG CHEW TAB PO ×4 (08:13→20:30)
[2022-07-14] MEDS: ENOXAPARIN 30 MG/0.3 ML SYRINGE SUB-Q (08:14)
[2022-07-14 11:32] LABS: Glucose Point of Care 122 mg/dl (65-105)
--- NOTE | 2022-07-14 11:55 | PM.PNGS ---
Progress Note: A&P Assessment and Plan (1) SBO (small bowel obstruction): Code(s): K56.609 - Unspecified intestinal obstruction, unspecified as to partial versus complete obstruction Status: Acute Assessment and Plan: Bowel function slowly improving. Still distended slightly and not eating much yet. Will continue monitoring today. Could repeat abdominal X-ray tomorrow if not improving much. Home once tolerating normal oral intake. (2) Acute kidney injury superimposed on chronic kidney disease: Code(s): N17.9 - Acute kidney failure, unspecified; N18.9 - Chronic kidney disease, unspecified Status: Acute Assessment and Plan: Cr improving. Subjective Subjective Date/Time Seen: 07/14/22 11:55 Interval history: Patient bloated overnight and had some nausea. Passing flatus and having BM's and feeling a little better this AM. Pain improving. Not eating very much yet. Exam GI: GI Palp: Yes Soft to palpation, No Tenderness to palpation present (GI) and No Guarding due to palpation present (GI) Percussion: Yes tympanic to percussion Auscultation: normal bowel sounds Other: Still mildly dilated in the upper abdomen Objective Data Vital Signs Vital Signs: Vital Signs - 24 hr 07/13/22 14:00 07/13/22 22:00 07/13/22 20:00 Temperature 36.4 C 36.4 C L Pulse Rate 75 85 Respiratory Rate 20 17 Blood Pressure 116/49 L 137/58 L Pulse Oximetry 100 97 Oxygen Delivery Room Air 07/14/22 06:00 07/14/22 08:15 Temperature 36.6 C Pulse Rate 89 Respiratory Rate 18 Blood Pressure 130/53 L Pulse Oximetry 100 Oxygen Delivery Room Air Intake/Output Intake/Output: Intake & Output 07/11/22 07/12/22 07/13/22 07/14/22 23:59 23:59 23:59 23:59 Intake Total 1999 50 4300 1240 Output Total 1000 Balance 1999 -950 4300 1240 Meds/Results Medications: Active Medications Generic Name Dose Route Start Last Admin Trade Name Freq PRN Reason Stop Dose Admin Dextrose 12.5 gm 07/13/22 02:11 Dextrose 50% 25 Gm/50 Ml Syringe IV PUSH PRN PRN Hypoglycemia Protocol Enoxaparin Sodium 30 mg 07/13/22 09:00 07/14/22 08:14 Enoxaparin 30 Mg/0.3 Ml Syringe SUB-Q 30 mg DAILY TRINA Administration Glucagon 1 mg 07/13/22 02:11 Glucagon For Inj 1 Mg Vial IM PRN PRN Hypoglycemia Protocol Glucose 15 gm 07/13/22 02:11 Glucose Oral Gel 15 Gm Of Glucse In 37.5 Gm Tube PO PRN PRN Hypoglycemia Protocol Sodium Chloride 1,000 mls @ 100 mls/hr 07/11/22 22:00 07/14/22 11:38 Normal Saline Iv IV CONT Not Given .Q10H TRINA Dextrose 1,000 mls @ 100 mls/hr 07/13/22 02:11 Dextrose 5% 1,000 Ml IVPB PRN PRN Hypoglycemia Protocol Insulin Aspart 2 - 5 units 07/13/22 08:00 07/14/22 11:38 Insulin Aspart (*Bkc) 100 Units/Ml SUB-Q Not Given [facility] Protocol Ondansetron HCl 4 mg 07/11/22 21:58 07/14/22 08:14 Ondansetron Inj 4 Mg/2 Ml Vial IV PUSH 4 mg Q4H PRN Administration Nausea Simethicone 125 mg 07/14/22 03:00 07/14/22 08:13 Simethicone 125 Mg Chew Tab PO 125 mg QID TRINA Administration Radiology Results: ITS Impressions Chest X-Ray 07/11/22 19:12 IMPRESSION: No acute cardiopulmonary process. Dilated small bowel loops in the upper abdomen, consider abdominal radiograph series for further evaluation. Abdomen/Pelvis CT 07/11/22 21:59 IMPRESSION: 1. High-grade small bowel obstruction, transition point in the mid right abdomen, possibly secondary to adhesion. 2. Multiple lytic vertebral body lesions, correlate with history of malignancy. Consider nuclear medicine bone scanning for further evaluation. Abdomen X-Ray 07/12/22 06:26 Impression: NG tube in place. Possible small bowel obstruction. Small Bowel X-Ray 07/12/22 14:22 IMPRESSION: 1. Dilated small bowel, consistent with partial obstruction. Labs Labs: Lab
--- NOTE | 2022-07-14 12:14 | PM.CNNEP ---
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 in renal function noted with IVFs since renal function improving, hold off on urine studies and/or renal ultrasound for now continue conservative therapy follow trend of repeat labs and UOP (2) Stage 3b chronic kidney disease: Code(s): N18.32 - Chronic kidney disease, stage 3b Status: Chronic Assessment and Plan: baseline creatinine runs 1.2 - 1.6mg/dl secondary to HTN, DM, vascular disease, and age based on outpatient evaluation (3) SBO (small bowel obstruction): Code(s): K56.609 - Unspecified intestinal obstruction, unspecified as to partial versus complete obstruction Status: Acute Assessment and Plan: as noted by admission CT scan appears to be resolving with current/previous interventions (NG tube decompression/bowel rest, IVFs/analgesics) Surgery following continue current therapy (4) Essential (primary) hypertension: Code(s): I10 - Essential (primary) hypertension Status: Chronic Assessment and Plan: reasonable control at this time follow trend of hemodynamics (5) Lesion of vertebra: Code(s): M89.9 - Disorder of bone, unspecified Status: Acute Assessment and Plan: incidentally noted on CT of abdomen multiple lytic vertebral body lesions outpatient evaluation of CKD done in 2021 demonstrated normal SPEP and UPEP repeat SPEP and UPEP ordered (6) Type 2 diabetes mellitus without complication, without long-term current use of insulin: Code(s): E11.9 - Type 2 diabetes mellitus without complications Status: Chronic Assessment and Plan: follow accuchecks glycemic contro Will continue to follow. History of Present Illness Reason for Consult Consult date: 07/14/22 Reason for consult: acute renal failure (on chronic kidney disease) Chief Complaint Chief complaint: RACHELLE on CKD History of Present Illness Narrative: The patient is a very pleasant 72-year-old female with a history as outlined below who presented to [facility] Emergency room with complaints of nausea, vomiting, diarrhea, and abdominal pain. According to the patient, her symptoms and problems seemed to start when she was found to be COVID-19 positive in late June of last year. At that time, her initial symptoms were just a cough and congestion and she was started on a five day course of Paxilovid. following initiation of this medication, she started having issues with diarrhea up to food three to 4 times a day. However, even after discontinuation of this medication, she continued to have diarrhea over the past 2-3 weeks. More recently, she has had issues with nausea and several episodes of vomiting more so over the past weekend. Given these GI symptoms, she has been unable to eat or drink as whenever she does, she immediately has further vomiting. About 3-4 days ago, she started having issues with abdominal pain localized to the left side of her abdomen. . Given her ongoing issues with nausea vomiting as well as diarrhea in association with the a for mentioned obtained, she came to the ER for further assessment. Workup and evaluation in the emergency room demonstrated the patient to be hemodynamically stable but routine blood test demonstrated acute kidney injury on top of her baseline kidney disease with a creatinine of 3.8 in association with mild hyponatremia. Given her multitude of GI symptoms, she had a CT scan of her abdomen pelvis which was suggestive of a high-grade small-bowel obstruction with a transition point in the mid right abdomen possibly secondary to adhesions. Incidentally noted was also multiple lyti
[2022-07-14 14:00] VITALS: BP 122/57; PULSE 74; RESP 16; TEMP 36.6; O2SAT 98
[2022-07-14 17:03] LABS: Glucose Point of Care 107 mg/dl (65-105)
[2022-07-14 17:36] LABS: Add Urine Microscopic? NO; Appearance Urine Clear (Clear); Bilirubin Urine Negative (Negative); Blood Urine Negative (Negative); Color Urine Yellow (Yellow); Glucose Urine UA Negative (Negative); Ketones Urine Negative (Negative); Leukocyte Esterase Ur Negative LEU/UL (NEGATIVE); Nitrate Urine Negative (Negative); Protein Urine Negative (Negative); Specific Grav Ur 1.025 (1.001-1.035); Urobilinogen Urine 0.2 mg/dL (<2.0); pH Urine 5.5 (5.0-9.0)
[2022-07-14 17:40] LABS: RBC Urine 0-2 /hpf (0-2); Squamous Epithelial Cell Urine Rare /hpf (Few); WBC Urine 0-3 /hpf (0-3)
[2022-07-14] MEDS: ACETAMINOPHEN 325 MG TABLET 650 MG PO (18:38)
[2022-07-14 22:00] VITALS: BP 140/52; PULSE 71; RESP 18; TEMP 36.9; O2SAT 100
[2022-07-14 22:48] LABS: Glucose Point of Care 116 mg/dl (65-105)
[2022-07-15] MEDS: ONDANSETRON INJ 4 MG/2 ML VIAL IV PUSH ×2 (04:58→08:46)
[2022-07-15 06:00] VITALS: BP 139/46; PULSE 92; RESP 18; TEMP 35.7; O2SAT 100
[2022-07-15 06:38] LABS: Hematocrit 28.3 % (37.0-47.0); Hemoglobin 8.3 g/dL (12.0-15.0); Mean Corpuscular HGB Conc 29.3 g/dl (32-36); Mean Corpuscular Hemoglobin 21.6 pg (26-34); Mean Corpuscular Volume 73.7 fl (80-100); Mean Platelet Volume 10.6 fl (7.4-10.4); Platelet Count Result 251 k/mm3 (150-375); Red Blood Count 3.84 M/mm3 (4.2-5.4); Red Cell Distribution Width 13.4 % (11.5-14.5); White Blood Count 5.3 K/mm3 (4.5-10.0)
[2022-07-15 06:52] LABS: Anion Gap 5 mmol/L (8-16); Blood Urea Nitrogen 25 mg/dL (7-17); Carbon Dioxide 30 mmol/L (22-30); Chloride 106 mmol/L (98-107); Estimated CRCL calculation 28 ml/min; Estimated Glomerular Filt Rate 34; Glucose 116 mg/dL (65-110); Phosphorus 2.5 mg/dL (2.5-4.5); Potassium 4.1 mmol/L (3.4-5.0); Sodium 141 mmol/L (137-145)
[2022-07-15 08:19] LABS: Glucose Point of Care 116 mg/dl (65-105)
[2022-07-15] MEDS: ENOXAPARIN 30 MG/0.3 ML SYRINGE SUB-Q (08:46)
--- NOTE | 2022-07-15 09:44 | PM.PNNEP ---
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) improvement in renal function noted with IVFs since renal function improving, hold off on urine studies and/or renal ultrasound for now continue conservative therapy but will restart IVFs x 12 hours given issues with nausea/vomiting yesterday follow trend of repeat labs and UOP (2) Stage 3b chronic kidney disease: Code(s): N18.32 - Chronic kidney disease, stage 3b Status: Chronic Assessment and Plan: baseline creatinine runs 1.2 - 1.6mg/dl secondary to HTN, DM, vascular disease, and age based on outpatient evaluation (3) SBO (small bowel obstruction): Code(s): K56.609 - Unspecified intestinal obstruction, unspecified as to partial versus complete obstruction Status: Acute Assessment and Plan: as noted by admission CT scan appears to be resolving with current/previous interventions (NG tube decompression/bowel rest, IVFs/analgesics) Surgery following continue current therapy (4) Essential (primary) hypertension: Code(s): I10 - Essential (primary) hypertension Status: Chronic Assessment and Plan: reasonable control at this time follow trend of hemodynamics (5) Lesion of vertebra: Code(s): M89.9 - Disorder of bone, unspecified Status: Acute Assessment and Plan: incidentally noted on CT of abdomen multiple lytic vertebral body lesions outpatient evaluation of CKD done in 2021 demonstrated normal SPEP and UPEP bone scan ordered repeat SPEP and UPEP (6) Type 2 diabetes mellitus without complication, without long-term current use of insulin: Code(s): E11.9 - Type 2 diabetes mellitus without complications Status: Chronic Assessment and Plan: follow accuchecks glycemic contro Will continue to follow. Subjective Date/time seen: 07/15/22 09:44 She states she is feeling okay now but had a rough time yesterday afternoon and evening; she started having issues with nausea + vomiting again and difficult keeping anything of substance down; she mainly had liquids with breakfast which she seemed to tolerate; no acute distress voiced at the time of my visit. Exam Narrative: General: WD/WN AA female in NAD Heart: normal S1 and S2; no rub Lungs: clear to auscultation Abdomen: soft, nontender, mild distension, positive bowel sounds Extremities: no cyanosis or clubbing; no edema Skin: warm and dry Objective Data Vital Signs Vital Signs: Vital Signs Temp Pulse Resp BP Pulse Ox O2 Del Method 07/15/22 06:00 96.2 F L 92 18 139/46 L 100 07/14/22 22:00 98.5 F 71 18 140/52 L 100 07/14/22 20:00 Room Air 07/14/22 14:00 97.9 F 74 16 122/57 L 98 Intake/Output Intake/Output: Intake & Output 07/12/22 07/13/22 07/14/22 07/15/22 23:59 23:59 23:59 23:59 Intake Total 50 4300 1910 240 Output Total 1000 Balance -950 4300 1910 240 Meds/Results Medications: Active Medications Generic Name Dose Route Start Last Admin Trade Name Freq PRN Reason Stop Dose Admin Acetaminophen 650 mg 07/14/22 18:25 07/14/22 18:38 Acetaminophen 325 Mg Tablet PO 650 mg Q6H PRN Administration Mild Pain (1-3) or Fever Dextrose 12.5 gm 07/13/22 02:11 Dextrose 50% 25 Gm/50 Ml Syringe IV PUSH PRN PRN Hypoglycemia Protocol Enoxaparin Sodium 30 mg 07/13/22 09:00 07/15/22 08:46 Enoxaparin 30 Mg/0.3 Ml Syringe SUB-Q 30 mg DAILY TRINA Administration Glucagon 1 mg 07/13/22 02:11 Glucagon For Inj 1 Mg Vial IM PRN PRN Hypoglycemia Protocol Glucose 15 gm 07/13/22 02:11 Glucose Oral Gel 15 Gm Of Glucse In 37.5 Gm Tube PO PRN PRN
--- NOTE | 2022-07-15 09:44 | P.PNNP_ITS ---
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) * improvement in renal function noted with IVFs * since renal function improving, hold off on urine studies and/or renal ultrasound for now * continue conservative therapy but will restart IVFs x 12 hours given issues with nausea/vomiting yesterday * follow trend of repeat labs and UOP (2) Stage 3b chronic kidney disease: Code(s): N18.32 - Chronic kidney disease, stage 3b Status: Chronic Assessment and Plan: * baseline creatinine runs 1.2 - 1.6mg/dl * secondary to HTN, DM, vascular disease, and age based on outpatient evaluation (3) SBO (small bowel obstruction): Code(s): K56.609 - Unspecified intestinal obstruction, unspecified as to partial versus complete obstruction Status: Acute Assessment and Plan: * as noted by admission CT scan * appears to be resolving with current/previous interventions (NG tube decompression/bowel rest, IVFs/analgesics) * Surgery following * continue current therapy (4) Essential (primary) hypertension: Code(s): I10 - Essential (primary) hypertension Status: Chronic Assessment and Plan: * reasonable control at this time * follow trend of hemodynamics (5) Lesion of vertebra: Code(s): M89.9 - Disorder of bone, unspecified Status: Acute Assessment and Plan: * incidentally noted on CT of abdomen * multiple lytic vertebral body lesions * outpatient evaluation of CKD done in 2021 demonstrated normal SPEP and UPEP * bone scan ordered * repeat SPEP and UPEP (6) Type 2 diabetes mellitus without complication, without long-term current use of insulin: Code(s): E11.9 - Type 2 diabetes mellitus without complications Status: Chronic Assessment and Plan: * follow accuchecks * glycemic contro Will continue to follow. Subjective Date/time seen: 07/15/22 09:44 She states she is feeling okay now but had a rough time yesterday afternoon and evening; she started having issues with nausea + vomiting again and difficult keeping anything of substance down; she mainly had liquids with breakfast which she seemed to tolerate; no acute distress voiced at the time of my visit. Exam Narrative: General: WD/WN AA female in NAD Heart: normal S1 and S2; no rub Lungs: clear to auscultation Abdomen: soft, nontender, mild distension, positive bowel sounds Extremities: no cyanosis or clubbing; no edema Skin: warm and dry Objective Data Vital Signs Vital Signs: Vital Signs Temp Pulse Resp BP Pulse Ox O2 Del Method 07/15/22 06:00 96.2 F L 92 18 139/46 L 100 07/14/22 22:00 98.5 F 71 18 140/52 L 100 07/14/22 20:00 Room Air 07/14/22 14:00 97.9 F 74 16 122/57 L 98 Intake/Output Intake/Output: Intake & Output 07/12/22 07/13/22 07/14/22 07/15/22 23:59 23:59 23:59 23:59 Intake Total 50 4300 1910 240 Output Total 1000 Balance -950 4300 1910 240 Meds/Results Medications: Active Medications
[2022-07-15] MEDS: METOCLOPRAMIDE HCL INJ 10 MG/2 ML VIAL IV PUSH ×2 (10:57→17:47)
[2022-07-15 12:08] LABS: Glucose Point of Care 126 mg/dl (65-105)
--- NOTE | 2022-07-15 12:14 | PM.PNGS ---
Progress Note: A&P Assessment and Plan (1) SBO (small bowel obstruction): Code(s): K56.609 - Unspecified intestinal obstruction, unspecified as to partial versus complete obstruction Status: Acute Assessment and Plan: Patient still having nausea and some occasional vomiting. I reviewed the abdominal x-ray this morning and bowel gas pattern appears to be improving. Will try changing metoclopramide to q.6 hours scheduled instead of p.r.n.. Will also add MiraLax daily. Plan for obstructive series in the morning. (2) Acute kidney injury superimposed on chronic kidney disease: Code(s): N17.9 - Acute kidney failure, unspecified; N18.9 - Chronic kidney disease, unspecified Status: Acute Assessment and Plan: Cr improving. Subjective Subjective Date/Time Seen: 07/15/22 12:14 Interval history: Still had some nausea and vomiting last night. She is moving her bowels and having just some slight liquid bowel movements. Her bloating seems a little improved. She denies any severe abdominal pain. KUB was obtained this morning. Exam GI: GI Palp: Yes Soft to palpation, No Tenderness to palpation present (GI) and No Guarding due to palpation present (GI) Percussion: Yes normal to percussion Auscultation: normal bowel sounds Other: Still mildly dilated in the upper abdomen Objective Data Vital Signs Vital Signs: Vital Signs - 24 hr 07/14/22 14:00 07/14/22 20:00 07/14/22 22:00 Temperature 36.6 C 36.9 C Pulse Rate 74 71 Respiratory Rate 16 18 Blood Pressure 122/57 L 140/52 L Pulse Oximetry 98 100 Oxygen Delivery Room Air 07/15/22 06:00 07/15/22 08:45 Temperature 35.7 C L Pulse Rate 92 Respiratory Rate 18 Blood Pressure 139/46 L Pulse Oximetry 100 Oxygen Delivery Room Air Intake/Output Intake/Output: Intake & Output 07/12/22 07/13/22 07/14/22 07/15/22 23:59 23:59 23:59 23:59 Intake Total 50 4300 1910 240 Output Total 1000 Balance -950 4300 1910 240 Meds/Results Medications: Active Medications Generic Name Dose Route Start Last Admin Trade Name Freq PRN Reason Stop Dose Admin Acetaminophen 650 mg 07/14/22 18:25 07/14/22 18:38 Acetaminophen 325 Mg Tablet PO 650 mg Q6H PRN Administration Mild Pain (1-3) or Fever Dextrose 12.5 gm 07/13/22 02:11 Dextrose 50% 25 Gm/50 Ml Syringe IV PUSH PRN PRN Hypoglycemia Protocol Enoxaparin Sodium 30 mg 07/13/22 09:00 07/15/22 08:46 Enoxaparin 30 Mg/0.3 Ml Syringe SUB-Q 30 mg DAILY TRINA Administration Glucagon 1 mg 07/13/22 02:11 Glucagon For Inj 1 Mg Vial IM PRN PRN Hypoglycemia Protocol Glucose 15 gm 07/13/22 02:11 Glucose Oral Gel 15 Gm Of Glucse In 37.5 Gm Tube PO PRN PRN Hypoglycemia Protocol Dextrose 1,000 mls @ 100 mls/hr 07/13/22 02:11 Dextrose 5% 1,000 Ml IVPB PRN PRN Hypoglycemia Protocol Insulin Aspart 2 - 5 units 07/13/22 08:00 07/15/22 12:11 Insulin Aspart (*Bkc) 100 Units/Ml SUB-Q Not Given TIDWM [facility] Protocol Metoclopramide HCl 10 mg 07/15/22 18:00 Metoclopramide Hcl Inj 10 Mg/2 Ml Vial IV PUSH Q6HR [facility] Ondansetron HCl 4 mg 07/11/22 21:58 07/15/22 08:46 Ondansetron Inj 4 Mg/2 Ml Vial IV PUSH 4 mg Q4H PRN Administration Nausea Polyethylene Glycol 17 gm 07/15/22 12:15 Polyethylene Glycol 3350 17 Gm Powd.Pack PO QAM [facility] Simethicone 125 mg 07/14/22 03:00 07/15/22 08:46 Simethicone 125 Mg Chew Tab PO Not Given QID [facility] Radiology Results: ITS Impressions Chest X-Ray 07/11/22 19:12 IMPRESSION: No acute cardiopulmonary process. Dilated small bowel loops in the upper abdomen, consider abdominal radiograph series for further evaluation. Abdomen/Pelvis CT 07/11/22 21:59 IMPRESSION: 1. High-grade small bowel obstruction, transition point in the mid right abdomen, possibly secondary to adhesion. 2. Multi
[2022-07-15] MEDS: SIMETHICONE 125 MG CHEW TAB PO ×3 (12:17→20:46)
[2022-07-15] MEDS: polyethylene glycoL 3350 17 GM POWD.PACK PO (12:22)
[2022-07-15 14:15] VITALS: BP 107/54; PULSE 76; RESP 14; TEMP 36.4; O2SAT 98
[2022-07-15] MEDS: SODIUM CHLORIDE 0.9% IV 1,000 ML 75 ML IV CONT (14:33)
--- NOTE | 2022-07-15 17:02 | PM.IMPN ---
Progress Note: A&P Assessment and Plan (1) SBO (small bowel obstruction): Code(s): K56.609 - Unspecified intestinal obstruction, unspecified as to partial versus complete obstruction Status: Acute Assessment and Plan: Surgery consult CT abdomen and pelvis reviewed, high-grade small-bowel obstruction POA Now small bowel obstruction is improving, partial small-bowel obstruction on x-ray Patient had a nausea vomiting today Repeat abdominal x-ray tomorrow per surgery recommendation (2) Acute kidney injury superimposed on chronic kidney disease: Code(s): N17.9 - Acute kidney failure, unspecified; N18.9 - Chronic kidney disease, unspecified Status: Acute Assessment and Plan: Likely pre renal azotemia, of possible from malignancy, multiple myeloma, Receiving IV fluids Follow-up BMP in a.m. Cr 1.8 07/15/22 Follow-up protein electrophoresis Appreciate blade boner consultation (3) N&V (nausea and vomiting): Code(s): R11.2 - Nausea with vomiting, unspecified Status: Acute Assessment and Plan: Supportive care High-grade obstruction Improving (4) GERD without esophagitis: Code(s): K21.9 - Gastro-esophageal reflux disease without esophagitis Status: Acute Assessment and Plan: PPI (5) Type 2 diabetes mellitus without complication, without long-term current use of insulin: Code(s): E11.9 - Type 2 diabetes mellitus without complications Status: Chronic Assessment and Plan: Insulin sliding scale as needed (6) Lytic bone lesions on xray: Code(s): M89.9 - Disorder of bone, unspecified Status: Acute Assessment and Plan: CT abdomen pelvis shows moderate focal lesion of spine Possible early malignancy, new to rule out multiple myeloma pendig nuclear bone scan, protein electrophoresis Consult heme oncologist for evaluation Subjective Date/time seen: 07/15/22 17:02 I saw and examined patient today. Patient having nausea vomiting in the morning, some diffuse abdominal pain. Stat abdomen aspirate shows improved small bowel distension, representing resolving ileus or partial obstruction Exam Narrative: Sitting in bed Const: General: comfortable, no acute distress, well developed, alert, awake and average body habitus Nutritional Appearance: average body habitus Orientation/consciousness: patient oriented x3 HENMT: Head: normal to inspection, normocephalic and atraumatic Ears: hearing grossly normal bilaterally Face/Nose/Sinus: normal facial exam Face and sinus: normal facial exam Eyes: General: appearance normal, both eyes and all related structures Pupils: Equal, round and reactive pupils present EOM: EOMs intact bilaterally Neck: Neck: full ROM, no lymphadenopathy and no JVD Thyroid: thyroid normal Lymphatic: no lymphadenopathy noted Resp: Effort & Inspection: normal respiratory effort and able to speak in complete sentences Auscultation: clear to auscultation bilaterally Cardio: Jugular venous distension: no JVD Rate: regular rate Rhythm: regular rhythm Heart sounds: S1 normal heart sound present and S2 normal heart sound present GI: Auscultation: Hyperactive bowel sounds present : General: Yes deferred Skin: Rashes: no rashes Wounds: no wounds Neuro: General: patient oriented x3, CN's II-XI intact bilaterally and Unable to assess gait Cranial nerves: Yes CN's II-XII intact bilaterally and Yes Equal, round and reactive pupils present Cognition (Neuro): normal cognition Speech: normal speech Gait exam (Neuro): Unable to assess gait Motor exam (neuro): 5/5 motor strength present throughout Sensory Exam: No Sensory deficit (Neuro) Extrem: General: normal to inspection, full ROM, no joint enlargement and no pedal edema Objective Data Vital Signs Vital Signs: Vital Signs - 24 hr 07/14/22 20:00 07/14/22 22:00 07/15/22 06:00 Temperature 98.5 F 96.2 F L Pulse Rate 71 92 Respiratory Rate 18 18 Bloo
[2022-07-15 17:22] LABS: Glucose Point of Care 104 mg/dl (65-105)
[2022-07-15 21:55] LABS: Glucose Point of Care 108 mg/dl (65-105)
[2022-07-15 22:00] VITALS: BP 140/53; PULSE 80; RESP 18; TEMP 36.6; O2SAT 95
[2022-07-16] MEDS: METOCLOPRAMIDE HCL INJ 10 MG/2 ML VIAL IV PUSH ×5 (00:06→23:20)
[2022-07-16 06:00] VITALS: BP 138/51; PULSE 78; RESP 18; TEMP 36.2; O2SAT 97
[2022-07-16 07:31] LABS: Albumin Level 3.7 g/dL (3.5-5.1); Anion Gap 8 mmol/L (8-16); Blood Urea Nitrogen 21 mg/dL (7-17); Calcium 9.7 mg/dL (8.4-10.2); Carbon Dioxide 28 mmol/L (22-30); Chloride 104 mmol/L (98-107); Estimated CRCL calculation 33 ml/min; Estimated Glomerular Filt Rate 41; Glucose 108 mg/dL (65-110); Phosphorus 2.7 mg/dL (2.5-4.5); Sodium 140 mmol/L (137-145)
[2022-07-16 07:35] LABS: Potassium 3.8 mmol/L (3.4-5.0)
[2022-07-16 07:40] VITALS: BMI 34.2
[2022-07-16 08:06] LABS: Glucose Point of Care 117 mg/dl (65-105)
[2022-07-16] MEDS: polyethylene glycoL 3350 17 GM POWD.PACK PO (08:18)
[2022-07-16] MEDS: ENOXAPARIN 30 MG/0.3 ML SYRINGE SUB-Q (08:18)
[2022-07-16] MEDS: SIMETHICONE 125 MG CHEW TAB PO ×4 (08:18→20:32)
--- NOTE | 2022-07-16 08:51 | PM.PNGS ---
Progress Note: A&P Assessment and Plan (1) SBO (small bowel obstruction): Code(s): K56.609 - Unspecified intestinal obstruction, unspecified as to partial versus complete obstruction Status: Acute Assessment and Plan: The patient's partial small bowel obstruction has largely resolved. She has no abdominal pain now and is having bowel movements. She does have some nausea in the evenings and I wonder if it is due to acid reflux as she has a prior history of acid reflux but is not currently taking a proton pump inhibitor. We will start her on some Protonix 40mg p.o. daily and see if this will help with her evening nausea. From a surgical standpoint there is no indication for any surgical intervention. Clinically since she has a benign abdomen and her abdominal distention is improved since yesterday I will go ahead and cancel the abdominal x-ray that was ordered for this morning. We will continue to follow while she is in the hospital. Subjective Subjective Date/Time Seen: 07/16/22 08:51 Interval history: Patient feels good this morning and had a small bowel movement. She is still having some nausea only at night and stated she did have a small amount of emesis last evening. She has no abdominal pain. Abdominal x-ray yesterday showed marked improvement in small bowel dilatation with air in the colon and rectum. She has been eating small amounts of solid food there today without problems. Review of Systems Review of Systems: No changes in review of systems Exam Resp: Effort & Inspection: normal respiratory effort Auscultation: clear to auscultation bilaterally Cardio: Rate: regular rate Rhythm: regular rhythm GI: Other: Abdomen is soft and minimally distended. She has no tenderness to palpation throughout. Bowel sounds are noted in all 4 quadrants. The abdominal exam is benign. Neuro: Speech: normal speech Motor exam (neuro): 5/5 motor strength present throughout Extrem: General: normal to inspection Psych: Mental Status: mental status grossly normal Affect: normal affect Objective Data Vital Signs Vital Signs: Vital Signs - 24 hr 07/15/22 14:15 07/15/22 20:00 07/15/22 22:00 Temperature 36.4 C L 36.6 C Pulse Rate 76 80 Respiratory Rate 14 18 Blood Pressure 107/54 L 140/53 L Pulse Oximetry 98 95 Oxygen Delivery Room Air 07/16/22 06:00 Temperature 36.2 C L Pulse Rate 78 Respiratory Rate 18 Blood Pressure 138/51 L Pulse Oximetry 97 Oxygen Delivery Intake/Output Intake/Output: Intake & Output 07/13/22 07/14/22 07/15/22 07/16/22 23:59 23:59 23:59 23:59 Intake Total 4300 1910 970 Output Total 400 Balance 4300 1910 570 Meds/Results Medications: Active Medications Generic Name Dose Route Start Last Admin Trade Name Freq PRN Reason Stop Dose Admin Acetaminophen 650 mg 07/14/22 18:25 07/14/22 18:38 Acetaminophen 325 Mg Tablet PO 650 mg Q6H PRN Administration Mild Pain (1-3) or Fever Dextrose 12.5 gm 07/13/22 02:11 Dextrose 50% 25 Gm/50 Ml Syringe IV PUSH PRN PRN Hypoglycemia Protocol Enoxaparin Sodium 30 mg 07/13/22 09:00 07/16/22 08:18 Enoxaparin 30 Mg/0.3 Ml Syringe SUB-Q 30 mg DAILY TRINA Administration Glucagon 1 mg 07/13/22 02:11 Glucagon For Inj 1 Mg Vial IM PRN PRN Hypoglycemia Protocol Glucose 15 gm 07/13/22 02:11 Glucose Oral Gel 15 Gm Of Glucse In 37.5 Gm Tube PO PRN PRN Hypoglycemia Protocol Dextrose 1,000 mls @ 100 mls/hr 07/13/22 02:11 Dextrose 5% 1,000 Ml IVPB PRN PRN Hypoglycemia Protocol Insulin Aspart 2 - 5 units 07/13/22 08:00 07/16/22 08:08 Insulin Aspart (*Bkc) 100 Units/Ml SUB-Q Not Given TIDWM TRINA Protocol Metoclopramide HCl 10 mg 07/15/22 18:00 07/16/22 07:31 Metoclopramide Hcl Inj 10 Mg/2 Ml Vial IV PUSH 10 mg Q6HR TRINA Administration Ondansetron HCl 4 mg 07/11/22 21:58
[2022-07-16] MEDS: PANTOPRAZOLE 40 MG TABLET PO (09:28)
--- NOTE | 2022-07-16 10:33 | P.PNNP_ITS ---
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) * improvement in renal function noted with IVFs * since renal function improving, hold off on urine studies and/or renal ultrasound for now * continue conservative therapy - continue IVFs and wean off as oral intake improves * follow trend of repeat labs and UOP (2) Stage 3b chronic kidney disease: Code(s): N18.32 - Chronic kidney disease, stage 3b Status: Chronic Assessment and Plan: * baseline creatinine runs 1.2 - 1.6mg/dl * secondary to HTN, DM, vascular disease, and age based on outpatient evaluation (3) SBO (small bowel obstruction): Code(s): K56.609 - Unspecified intestinal obstruction, unspecified as to partial versus complete obstruction Status: Acute Assessment and Plan: * as noted by admission CT scan * appears to be resolving with current/previous interventions (NG tube decompression/bowel rest, IVFs/analgesics) * Surgery following * continue current therapy (4) Essential (primary) hypertension: Code(s): I10 - Essential (primary) hypertension Status: Chronic Assessment and Plan: * reasonable control at this time * follow trend of hemodynamics (5) Lesion of vertebra: Code(s): M89.9 - Disorder of bone, unspecified Status: Acute Assessment and Plan: * incidentally noted on CT of abdomen * multiple lytic vertebral body lesions * outpatient evaluation of CKD done in 2021 demonstrated normal SPEP and UPEP * bone scan pending * repeat SPEP and UPEP (6) Type 2 diabetes mellitus without complication, without long-term current use of insulin: Code(s): E11.9 - Type 2 diabetes mellitus without complications Status: Chronic Assessment and Plan: * follow accuchecks * glycemic contro Will continue to follow. Subjective Date/time seen: 07/16/22 10:33 She states she continues to have some nausea/vomiting but more so in the evening if not later part of the day; otherwise, no other acute issues or problems to report. Exam Narrative: General: WD/WN AA female in NAD Heart: normal S1 and S2; no rub Lungs: clear to auscultation Abdomen: soft, nontender, mild distension, positive bowel sounds Extremities: no cyanosis or clubbing; no edema Skin: warm and intact Objective Data Vital Signs Vital Signs: Vital Signs Temp Pulse Resp BP Pulse Ox O2 Del Method 07/16/22 06:00 97.2 F L 78 18 138/51 L 97 07/15/22 22:00 97.8 F 80 18 140/53 L 95 07/15/22 20:00 Room Air 07/15/22 14:15 97.5 F L 76 14 107/54 L 98 Intake/Output Intake/Output: Intake & Output 07/13/22 07/14/22 07/15/22 07/16/22 23:59 23:59 23:59 23:59 Intake Total 4300 1910 970 200 Output Total 400 Balance 4300 1910 570 200 Meds/Results Medications: Active Medications Generic Name Dose Route Start Last Admin Trade Name Freq PRN Reason Stop Dose Admin Acetaminophen 650 mg
--- NOTE | 2022-07-16 10:33 | PM.PNNEP ---
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 in renal function noted with IVFs since renal function improving, hold off on urine studies and/or renal ultrasound for now continue conservative therapy - continue IVFs and wean off as oral intake improves follow trend of repeat labs and UOP (2) Stage 3b chronic kidney disease: Code(s): N18.32 - Chronic kidney disease, stage 3b Status: Chronic Assessment and Plan: baseline creatinine runs 1.2 - 1.6mg/dl secondary to HTN, DM, vascular disease, and age based on outpatient evaluation (3) SBO (small bowel obstruction): Code(s): K56.609 - Unspecified intestinal obstruction, unspecified as to partial versus complete obstruction Status: Acute Assessment and Plan: as noted by admission CT scan appears to be resolving with current/previous interventions (NG tube decompression/bowel rest, IVFs/analgesics) Surgery following continue current therapy (4) Essential (primary) hypertension: Code(s): I10 - Essential (primary) hypertension Status: Chronic Assessment and Plan: reasonable control at this time follow trend of hemodynamics (5) Lesion of vertebra: Code(s): M89.9 - Disorder of bone, unspecified Status: Acute Assessment and Plan: incidentally noted on CT of abdomen multiple lytic vertebral body lesions outpatient evaluation of CKD done in 2021 demonstrated normal SPEP and UPEP bone scan pending repeat SPEP and UPEP (6) Type 2 diabetes mellitus without complication, without long-term current use of insulin: Code(s): E11.9 - Type 2 diabetes mellitus without complications Status: Chronic Assessment and Plan: follow accuchecks glycemic contro Will continue to follow. Subjective Date/time seen: 07/16/22 10:33 She states she continues to have some nausea/vomiting but more so in the evening if not later part of the day; otherwise, no other acute issues or problems to report. Exam Narrative: General: WD/WN AA female in NAD Heart: normal S1 and S2; no rub Lungs: clear to auscultation Abdomen: soft, nontender, mild distension, positive bowel sounds Extremities: no cyanosis or clubbing; no edema Skin: warm and intact Objective Data Vital Signs Vital Signs: Vital Signs Temp Pulse Resp BP Pulse Ox O2 Del Method 07/16/22 06:00 97.2 F L 78 18 138/51 L 97 07/15/22 22:00 97.8 F 80 18 140/53 L 95 07/15/22 20:00 Room Air 07/15/22 14:15 97.5 F L 76 14 107/54 L 98 Intake/Output Intake/Output: Intake & Output 07/13/22 07/14/22 07/15/22 07/16/22 23:59 23:59 23:59 23:59 Intake Total 4300 1910 970 200 Output Total 400 Balance 4300 1910 570 200 Meds/Results Medications: Active Medications Generic Name Dose Route Start Last Admin Trade Name Freq PRN Reason Stop Dose Admin Acetaminophen 650 mg 07/14/22 18:25 07/14/22 18:38 Acetaminophen 325 Mg Tablet PO 650 mg Q6H PRN Administration Mild Pain (1-3) or Fever Dextrose 12.5 gm 07/13/22 02:11 Dextrose 50% 25 Gm/50 Ml Syringe IV PUSH PRN PRN Hypoglycemia Protocol Enoxaparin Sodium 30 mg 07/13/22 09:00 07/16/22 08:18 Enoxaparin 30 Mg/0.3 Ml Syringe SUB-Q 30 mg DAILY TRINA Administration Glucagon 1 mg 07/13/22 02:11 Glucagon For Inj 1 Mg Vial IM PRN PRN Hypoglycemia Protocol Glucose 15 gm 07/13/22 02:11 Glucose Oral Gel 15 Gm Of Glucse In 37.5 Gm Tube PO PRN PRN Hypoglycemia Protocol Dextrose 1,000 mls @ 100 mls/hr 07/13/22 02:11 Dextrose 5% 1,000 Ml IVPB PRN PRN Hypoglycemia Protocol
[2022-07-16 11:44] LABS: Glucose Point of Care 137 mg/dl (65-105)
--- NOTE | 2022-07-16 12:19 | PDONCCN ---
HPI - Date of Consult Date/Time: 07/16/22 12:19 Requesting Physician: Elin Stevenson MD Primary Care Provider: Shadi Augustin MD - Consult Narrative Reason for consult: Lytic bone lesions Narrative: Marbella Rivero is a 72 year old female with history of type 2 diabetes, hyperlipidemia and chronic kidney disease diagnosed with COVID infection in June of 2022. She came into the hospital with intermittent nausea vomiting and abdominal discomfort. She has some neuropathy involving the left foot. Denies any bone pain especially the back pain. CT scan was performed that showed high-grade small-bowel obstruction as well as multiple lytic lesion in the vertebral body. There is a family history of colon cancer in the mother. Patient had last colonoscopy done almost 5 years ago and that showed some benign polyps. She denies any melena hematochezia. She had a small bowel movement today. Other labs showed hemoglobin of 8.3. She denies any weight loss. Denies any new lumps bumps and lymphadenopathy. Review of Systems - Review of Systems All systems reviewed & are unremarkable except as noted in HPI and bel - Neurologic Reports system reviewed and no additional complaints, except as documented, Denies abnormal gait, Denies vertigo, Denies headache(s), Denies focal weakness, Denies numbness, Denies sensory deficit, Denies tingling, Denies weakness [facility] Medical History: Medical History (Last Reviewed 07/12/22 @ 09:30 by EMMY Eduardo) Arthritis CKD (chronic kidney disease) stage 3, GFR 30-59 ml/min Dyslipidemia Essential (primary) hypertension GERD without esophagitis History of deep venous thrombosis (DVT) of distal vein of left lower extremity Type 2 diabetes mellitus without complication, without long-term current use of insulin Vitamin D deficiency Surgical History: Surgical History (Last Reviewed 07/12/22 @ 09:31 by EMMY Eduardo) History of hysterectomy 1984 partial hysterectomy History of superficial parotidectomy 1999 - benign tumor History of toe surgery 2004 - Right foot 5th toe surgery Hx of lumbosacral spine surgery 1994 Family History: Family History (Last Reviewed 07/12/22 @ 15:18 by Kierra Arce RN) Grandparent Diabetes mellitus Sibling Hypertension Father Cerebrovascular accident Mother Carcinoma of colon Other Family history of coronary artery disease - Social History Social History: Social History (Last Reviewed 07/12/22 @ 09:31 by EMMY Eduardo) Gender Identity: Gender identity (if verbalized by the patient): Female Alcohol Use: Alcohol intake: never Alcohol use details: occasionnally Substance Use: Substance use: never Substance use type: does not use Others: Spiritual care concerns: No Agree to blood products: Yes Smoking Status: Smoking status: Never smoker Second hand tobacco smoke exposure: No Social Determinants of Health: Has the Lack of Transportation Kept You From Medical Appointments or From Getting Medications?: No Within the Past 12 Months, Were You Worried Whether Your Food Would Run Out Before You Got Money to Buy More?: Never True What is Your Housing Situation Today?: I Have Housing Are You Worried That in the Next 2 Months, You May Not Have Your Own Housing to Live In?: No Do You Have Trouble Paying Your Heating Or Electricity Bill?: No Do You Have Trouble Paying For Medicines?: No Are You Currently Unemployed and Looking for Work?: No Highest Level of Education Completed: Don't Know Do You Have Trouble With Childcare or the Care of a Family Member?: No Exam - Vital Signs Vital Signs - 24 hr 07/15/22 14:15 07/15/22 20:00 07/15/22 22:00 Temperature 36.4 C L 36.6 C Pulse Rate 76 80 Respiratory Rate 14 18 Blood Pressure 107/54 L 140/53 L Pulse Oximetry 98 95 Oxygen Delivery Room Air 0
--- NOTE | 2022-07-16 13:07 | PM.IMPN ---
Progress Note: A&P Assessment and Plan (1) SBO (small bowel obstruction): Code(s): K56.609 - Unspecified intestinal obstruction, unspecified as to partial versus complete obstruction Status: Acute Assessment and Plan: improving, appreciate surgery consultation, monitor, tolerating diet (2) Acute kidney injury superimposed on chronic kidney disease: Code(s): N17.9 - Acute kidney failure, unspecified; N18.9 - Chronic kidney disease, unspecified Status: Acute Assessment and Plan: appreciate nephrology consultation, being worked up for possible multiple myeloma improving on IV fluids (3) N&V (nausea and vomiting): Code(s): R11.2 - Nausea with vomiting, unspecified Status: Acute Assessment and Plan: resolved (4) GERD without esophagitis: Code(s): K21.9 - Gastro-esophageal reflux disease without esophagitis Status: Acute Assessment and Plan: PPI (5) Type 2 diabetes mellitus without complication, without long-term current use of insulin: Code(s): E11.9 - Type 2 diabetes mellitus without complications Status: Chronic Assessment and Plan: Insulin sliding scale as needed (6) Lytic bone lesions on xray: Code(s): M89.9 - Disorder of bone, unspecified Status: Acute Assessment and Plan: SPEP/UPEP / bone scan pending appreciate oncology consultation GI consult recommended and pending Plan DVT prophylaxis with lovenox GI prophylaxis with PPI Code status full code Subjective Date/time seen: 07/16/22 13:07 Interval history: No overnight events noted. No chest pain or shortness of breath. No fevers or chills. Continues to have nausea and vomiting. Review of Systems Review of Systems: 12 point review of systems was assessed and was negative except as noted in the HPI Exam Narrative: General: No acute distress, alert and oriented per baseline HEENT: Atraumatic, normocephalic, mucous membranes moist CV: Regular rate and rhythm, S1, S2 Lungs: Clear to auscultation bilaterally, no rales or crackles noted, no wheezes, good air entry Abdomen: Soft, nontender, nondistended Extremities: Normal to inspection Skin: No rashes noted, no lesions or wounds seen Psych: Euthymic, normal affect Objective Data Vital Signs Vital Signs: Vital Signs - 24 hr 07/15/22 14:15 07/15/22 20:00 07/15/22 22:00 Temperature 97.5 F L 97.8 F Pulse Rate 76 80 Respiratory Rate 14 18 Blood Pressure 107/54 L 140/53 L Pulse Oximetry 98 95 Oxygen Delivery Room Air 07/16/22 06:00 Temperature 97.2 F L Pulse Rate 78 Respiratory Rate 18 Blood Pressure 138/51 L Pulse Oximetry 97 Oxygen Delivery Intake/Output Intake/Output: Intake & Output 07/13/22 07/14/22 07/15/22 07/16/22 23:59 23:59 23:59 23:59 Intake Total 4300 1910 970 200 Output Total 400 Balance 4300 1910 570 200 Meds/Results Medications: Active Medications Generic Name Dose Route Start Last Admin Trade Name Freq PRN Reason Stop Dose Admin Acetaminophen 650 mg 07/14/22 18:25 07/14/22 18:38 Acetaminophen 325 Mg Tablet PO 650 mg Q6H PRN Administration Mild Pain (1-3) or Fever Dextrose 12.5 gm 07/13/22 02:11 Dextrose 50% 25 Gm/50 Ml Syringe IV PUSH PRN PRN Hypoglycemia Protocol Enoxaparin Sodium 30 mg 07/13/22 09:00 07/16/22 08:18 Enoxaparin 30 Mg/0.3 Ml Syringe SUB-Q 30 mg DAILY TRINA Administration Glucagon 1 mg 07/13/22 02:11 Glucagon For Inj 1 Mg Vial IM PRN PRN Hypoglycemia Protocol Glucose 15 gm 07/13/22 02:11 Glucose Oral Gel 15 Gm Of Glucse In 37.5 Gm Tube PO PRN PRN Hypoglycemia Protocol Dextrose 1,000 mls @ 100 mls/hr 07/13/22 02:11 Dextrose 5% 1,000 Ml IVPB PRN PRN Hypoglycemia Protocol Dextrose/Sodium Chloride 1,000 mls @ 60 mls/hr 07/16/22 12:35 Dextrose 5% Sodium Chloride 0.45% IV CONT .Q
[2022-07-16 13:17] LABS: Iron 33 ug/dL (37-170)
[2022-07-16 13:23] LABS: Lactate Dehydrogenase 186 U/L (120-246)
[2022-07-16 13:27] LABS: Percent Iron Saturation 13 % (20-50)
[2022-07-16 13:31] LABS: Immunoglobulin A 291 mg/dL (70-400); Immunoglobulin G 933 mg/dL (700-1600); Immunoglobulin M 53 mg/dL (40-230)
[2022-07-16 13:43] LABS: Carcinoembryonic Antigen 1.8 ng/mL (0.0-3.0)
[2022-07-16 14:00] VITALS: BP 135/54; PULSE 79; RESP 18; TEMP 36.3; O2SAT 99
[2022-07-16 14:26] LABS: Folic Acid 15.4 ng/mL (2.76->20)
[2022-07-16] MEDS: DEXTROSE 5%/0.45% SOD CHL 1,000 ML 60 ML IV CONT (14:33)
[2022-07-16 16:40] LABS: Glucose Point of Care 121 mg/dl (65-105)
[2022-07-16] MEDS: ONDANSETRON INJ 4 MG/2 ML VIAL IV PUSH (20:34)
[2022-07-16 20:41] LABS: Glucose Point of Care 113 mg/dl (65-105)
[2022-07-16 22:00] VITALS: BP 141/57; PULSE 86; RESP 17; TEMP 36.4; O2SAT 98
[2022-07-17] MEDS: ONDANSETRON INJ 4 MG/2 ML VIAL IV PUSH ×2 (02:55→16:45)
[2022-07-17 06:00] VITALS: BP 144/59; PULSE 77; RESP 18; TEMP 36.3; O2SAT 96
[2022-07-17] MEDS: DEXTROSE 5%/0.45% SOD CHL 1,000 ML 60 ML IV CONT (06:10)
[2022-07-17] MEDS: METOCLOPRAMIDE HCL INJ 10 MG/2 ML VIAL IV PUSH ×3 (06:12→17:34)
[2022-07-17] MEDS: PANTOPRAZOLE 40 MG TABLET PO (08:01)
[2022-07-17] MEDS: ENOXAPARIN 30 MG/0.3 ML SYRINGE SUB-Q (08:01)
[2022-07-17] MEDS: SIMETHICONE 125 MG CHEW TAB PO ×4 (08:01→21:02)
[2022-07-17 08:07] LABS: Basophils Percent Auto 0.2 % (0.2-1.2); Eosinophils Absolute Auto 0.2 K/mm3 (0-0.3); Eosinophils Percent Auto 2.7 % (0-4.4); Hematocrit 26.8 % (37.0-47.0); Hemoglobin 7.8 g/dL (12.0-15.0); Immature Granulocyte Absolute 0.01 K/mm3 (0.00-0.031); Immature Granulocyte Percent A 0.2 % (0-0.5); Lymphocytes Absolute Auto 2.04 K/mm3 (0.9-3.2); Lymphocytes Percent Auto 36.4 % (18.3-44.2); Mean Corpuscular HGB Conc 29.1 g/dl (32-36); Mean Corpuscular Hemoglobin 21.3 pg (26-34); Monocytes Absolute Auto 0.5 K/mm3 (0.1-0.6); Monocytes Percent Auto 9.6 % (2.6-8.5); Neutrophils Absolute Auto 2.9 K/mm3 (1.3-6.7); Neutrophils Percent Auto 50.9 % (45.5-73.1); Platelet Count Result 219 k/mm3 (150-375); Red Blood Count 3.67 M/mm3 (4.2-5.4); Red Cell Distribution Width 13.2 % (11.5-14.5); White Blood Count 5.6 K/mm3 (4.5-10.0)
[2022-07-17 08:15] LABS: Albumin Level 3.5 g/dL (3.5-5.1); Anion Gap 3 mmol/L (8-16); Blood Urea Nitrogen 14 mg/dL (7-17); Calcium 9.1 mg/dL (8.4-10.2); Carbon Dioxide 29 mmol/L (22-30); Chloride 105 mmol/L (98-107); Estimated CRCL calculation 39 ml/min; Estimated Glomerular Filt Rate 49; Glucose 102 mg/dL (65-110); Phosphorus 1.8 mg/dL (2.5-4.5); Potassium 3.8 mmol/L (3.4-5.0); Sodium 137 mmol/L (137-145)
[2022-07-17 08:27] LABS: Platelet Estimate Adequate (Adequate)
[2022-07-17 08:28] LABS: Anisocytosis 1+ (NORMAL); Ovalocytes 1+ (NORMAL); Schistocytes None Seen (NORMAL)
[2022-07-17 08:43] LABS: Glucose Point of Care 104 mg/dl (65-105)
--- NOTE | 2022-07-17 09:48 | P.PNNP_ITS ---
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) * improvement in renal function noted with IVFs * since renal function improving, hold off on urine studies and/or renal ultrasound for now * continue conservative therapy - continue IVFs and wean off as oral intake improves * follow trend of repeat labs and UOP (2) Stage 3b chronic kidney disease: Code(s): N18.32 - Chronic kidney disease, stage 3b Status: Chronic Assessment and Plan: * baseline creatinine runs 1.2 - 1.6mg/dl * secondary to HTN, DM, vascular disease, and age based on outpatient evaluation (3) SBO (small bowel obstruction): Code(s): K56.609 - Unspecified intestinal obstruction, unspecified as to partial versus complete obstruction Status: Acute Assessment and Plan: * as noted by admission CT scan * appears to be resolving with current/previous interventions (NG tube decompression/bowel rest, IVFs/analgesics) * Surgery following * continue current therapy (4) Essential (primary) hypertension: Code(s): I10 - Essential (primary) hypertension Status: Chronic Assessment and Plan: * reasonable control at this time * follow trend of hemodynamics (5) Lesion of vertebra: Code(s): M89.9 - Disorder of bone, unspecified Status: Acute Assessment and Plan: * incidentally noted on CT of abdomen * multiple lytic vertebral body lesions * outpatient evaluation of CKD done in 2021 demonstrated normal SPEP and UPEP * bone scan pending * repeat SPEP and UPEP (6) Type 2 diabetes mellitus without complication, without long-term current use of insulin: Code(s): E11.9 - Type 2 diabetes mellitus without complications Status: Chronic Assessment and Plan: * follow accuchecks * glycemic contro Will continue to follow. Subjective Date/time seen: 07/17/22 09:48 Reasonable oral intake in the last 24 hours; renal function stable if not better than baseline; overall, feels that she is doing better today; no issues overnight or earlier this morning. Exam Narrative: General: WD/WN AA female in NAD Heart: normal S1 and S2; no rub Lungs: clear to auscultation Abdomen: soft, nontender, mild distension, positive bowel sounds Extremities: no cyanosis or clubbing; no edema Skin: warm and intact Objective Data Vital Signs Vital Signs: Vital Signs Temp Pulse Resp BP Pulse Ox O2 Del Method 07/17/22 06:00 97.4 F L 77 18 144/59 H 96 07/16/22 22:00 97.6 F 86 17 141/57 H 98 07/16/22 20:00 Room Air 07/16/22 14:00 97.4 F L 79 18 135/54 L 99 Intake/Output Intake/Output: Intake & Output 07/14/22 07/15/22 07/16/22 07/17/22 23:59 23:59 23:59 23:59 Intake Total 6493 991 9991 1000 Output Total 400 Balance 7456 783 7139 1000 Meds/Results Medications: Active Medications Generic Name Dose Route Start Last Admin Trade Name Freq PRN Reason Stop Dose Admin
--- NOTE | 2022-07-17 09:48 | PM.PNNEP ---
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 in renal function noted with IVFs since renal function improving, hold off on urine studies and/or renal ultrasound for now continue conservative therapy - continue IVFs and wean off as oral intake improves follow trend of repeat labs and UOP (2) Stage 3b chronic kidney disease: Code(s): N18.32 - Chronic kidney disease, stage 3b Status: Chronic Assessment and Plan: baseline creatinine runs 1.2 - 1.6mg/dl secondary to HTN, DM, vascular disease, and age based on outpatient evaluation (3) SBO (small bowel obstruction): Code(s): K56.609 - Unspecified intestinal obstruction, unspecified as to partial versus complete obstruction Status: Acute Assessment and Plan: as noted by admission CT scan appears to be resolving with current/previous interventions (NG tube decompression/bowel rest, IVFs/analgesics) Surgery following continue current therapy (4) Essential (primary) hypertension: Code(s): I10 - Essential (primary) hypertension Status: Chronic Assessment and Plan: reasonable control at this time follow trend of hemodynamics (5) Lesion of vertebra: Code(s): M89.9 - Disorder of bone, unspecified Status: Acute Assessment and Plan: incidentally noted on CT of abdomen multiple lytic vertebral body lesions outpatient evaluation of CKD done in 2021 demonstrated normal SPEP and UPEP bone scan pending repeat SPEP and UPEP (6) Type 2 diabetes mellitus without complication, without long-term current use of insulin: Code(s): E11.9 - Type 2 diabetes mellitus without complications Status: Chronic Assessment and Plan: follow accuchecks glycemic contro Will continue to follow. Subjective Date/time seen: 07/17/22 09:48 Reasonable oral intake in the last 24 hours; renal function stable if not better than baseline; overall, feels that she is doing better today; no issues overnight or earlier this morning. Exam Narrative: General: WD/WN AA female in NAD Heart: normal S1 and S2; no rub Lungs: clear to auscultation Abdomen: soft, nontender, mild distension, positive bowel sounds Extremities: no cyanosis or clubbing; no edema Skin: warm and intact Objective Data Vital Signs Vital Signs: Vital Signs Temp Pulse Resp BP Pulse Ox O2 Del Method 07/17/22 06:00 97.4 F L 77 18 144/59 H 96 07/16/22 22:00 97.6 F 86 17 141/57 H 98 07/16/22 20:00 Room Air 07/16/22 14:00 97.4 F L 79 18 135/54 L 99 Intake/Output Intake/Output: Intake & Output 07/14/22 07/15/22 07/16/22 07/17/22 23:59 23:59 23:59 23:59 Intake Total 9943 949 0288 1000 Output Total 400 Balance 4072 761 9058 1000 Meds/Results Medications: Active Medications Generic Name Dose Route Start Last Admin Trade Name Freq PRN Reason Stop Dose Admin Acetaminophen 650 mg 07/14/22 18:25 07/14/22 18:38 Acetaminophen 325 Mg Tablet PO 650 mg Q6H PRN Administration Mild Pain (1-3) or Fever Dextrose 12.5 gm 07/13/22 02:11 Dextrose 50% 25 Gm/50 Ml Syringe IV PUSH PRN PRN Hypoglycemia Protocol Enoxaparin Sodium 30 mg 07/13/22 09:00 07/17/22 08:01 Enoxaparin 30 Mg/0.3 Ml Syringe SUB-Q 30 mg DAILY TRINA Administration Glucagon 1 mg 07/13/22 02:11 Glucagon For Inj 1 Mg Vial IM PRN PRN Hypoglycemia Protocol Glucose 15 gm 07/13/22 02:11 Glucose Oral Gel 15 Gm Of Glucse In 37.5 Gm Tube PO PRN PRN Hypoglycemia Protocol Dextrose 1,000 mls @ 100 mls/hr 07/13/22 02:11 Dextrose 5% 1,000 Ml IVPB PRN PRN Hypo
[2022-07-17] MEDS: POTASSIUM/PHOSPHORUS/SODIUM 1.5 GM PACKET 2 PACKET PO (10:39)
--- NOTE | 2022-07-17 10:45 | PM.CNGS ---
History of Present Illness Consult details Consult date: 07/17/22 [facility] Past Medical History Medical History Arthritis CKD (chronic kidney disease) stage 3, GFR 30-59 ml/min Dyslipidemia Essential (primary) hypertension GERD without esophagitis History of deep venous thrombosis (DVT) of distal vein of left lower extremity Type 2 diabetes mellitus without complication, without long-term current use of insulin Vitamin D deficiency Surgical History Surgical History History of hysterectomy 1984 partial hysterectomy History of superficial parotidectomy 1999 - benign tumor History of toe surgery 2004 - Right foot 5th toe surgery Hx of lumbosacral spine surgery 1994 Family History Family History Grandparent Diabetes mellitus Sibling Hypertension Father Cerebrovascular accident Mother Carcinoma of colon Other Family history of coronary artery disease Social History Social History Smoking status: Never smoker Second hand tobacco smoke exposure: No Alcohol intake: never Alcohol use details: occasionnally Substance use: never Substance use type: does not use Lack of Transportation: No Lack of Food: Never True Current Housing: I Have Housing Concerned About Future Housing: No Difficulty Paying Gas/Electric Bills: No Difficulty Paying for Meds: No Currently Unemployed: No Education: Don't Know Difficulty w/ Childcare or Family Care: No Gender identity (if verbalized by the patient): Female Spiritual care concerns: No Agree to blood products: Yes Meds Home Medications and Allergies Home Medications Medication Instructions Recorded Confirmed Type lancets 30 gauge (Ultra Thin See Rx Instructions .Route 11/27/19 07/12/22 Rx Lancets) .COMPLEX E11.9 ##100 blood sugar diagnostic (Advanced See Rx Instructions .Route 10/11/20 07/12/22 Rx Glucose Meter Test Strips) .COMPLEX #100 strips aspirin 81 mg tablet,delayed 81 mg PO DAILY 01/30/21 07/12/22 History release metformin 500 mg tablet,extended 1,000 mg PO QPM #180 tabs 06/21/21 07/12/22 Rx release 24 hr simvastatin 20 mg tablet 20 mg PO QHS #90 tabs 11/28/21 07/12/22 Rx cholecalciferol (vitamin D3) 50 50 mcg PO DAILY 01/30/22 07/12/22 History mcg (2,000 unit) tablet lisinopril 20 1 tablet PO DAILY #90 tabs 06/29/22 07/12/22 Rx mg-hydrochlorothiazide 12.5 mg tablet Allergies Allergy/AdvReac Type Severity Reaction Status Date / Time iohexol Allergy Mild Vomiting Verified 07/12/22 15:05 [From CONTRAST - CT, XRAY] codeine Allergy Unknown Other Verified 07/12/22 15:05 Vital Signs Vital Signs - 24 hr 07/16/22 14:00 07/16/22 20:00 07/16/22 22:00 Temperature 36.3 C L 36.4 C Pulse Rate 79 86 Respiratory Rate 18 17 Blood Pressure 135/54 L 141/57 H Pulse Oximetry 99 98 Oxygen Delivery Room Air 07/17/22 06:00 Temperature 36.3 C L Pulse Rate 77 Respiratory Rate 18 Blood Pressure 144/59 H Pulse Oximetry 96 Oxygen Delivery Results Labs 07/17/22 07:53 07/17/22 07:53 Labs: Abnormal lab results 07/16/22 07/16/22 07/16/22 Range/Units 07:01 11:29 16:31 RBC (4.2-5.4) M/mm3 Hgb (12.0-15.0) g/dL Hct (37.0-47.0) % MCV (80-100) fl MCH (26-34) pg MCHC (32-36) g/dl Dundy % (Auto) (2.6-8.5) % Anion Gap (8-16) mmol/L Creatinine (0.7-1.0) mg/dL Estimated GFR (59 - ) POC Capillary Glucose 137 H 121 H (65-105) mg/dl Phosphorus (2.5-4.5) mg/dL Iron 33 L (37-170) ug/dL % Saturation 13 L (20-50) % 07/16/22 07/17/22 07/17/22 Range/Units 20:37 07:53 07:53 RBC 3.67 L (4.2-5.4) M/mm3 Hgb 7.8 L (12.0-15.0) g/dL Hct 26.8 L (37.0-47.0) % M
--- NOTE | 2022-07-17 11:55 | PM.PNGS ---
Progress Note: A&P Assessment and Plan (1) SBO (small bowel obstruction): Code(s): K56.609 - Unspecified intestinal obstruction, unspecified as to partial versus complete obstruction Status: Acute Assessment and Plan: Resolved. Her abdominal exam is still benign. She is tolerating a regular diet and bowels are moving. Her nausea in the evenings improved after starting the Protonix. No indication for surgery at this point. We will continue to follow along while she is in the hospital. Plan I have discussed the patient's case and plan of care with Dr. Pitt. Subjective Subjective Date/Time Seen: 07/17/22 09:55 Patient reports: no new complaints, feels better, tolerating a regular diet, flatus and bowel movement Interval history: Chart reviewed since last seen. She was started on Protonix yesterday. She states that she had a much better night last night and was able to get some good sleep. Denies any nausea, vomiting, or abdominal pain through the night or this morning. She had a small bowel movement already this morning and passing a lot of flatus. Review of Systems Review of Systems: All systems reviewed & are unremarkable except as noted in HPI and below Exam Const: General: no acute distress and awake Orientation/consciousness: patient oriented x3 GI: Inspection: non-distended GI Palp: Yes Soft to palpation, No Tenderness to palpation present (GI), No Guarding due to palpation present (GI) and No Rebound tenderness present Auscultation: normal bowel sounds Extrem: General: normal to inspection Psych: Mental Status: mental status grossly normal Objective Data Vital Signs Vital Signs: Vital Signs - 24 hr 07/16/22 14:00 07/16/22 20:00 07/16/22 22:00 Temperature 97.4 F L 97.6 F Pulse Rate 79 86 Respiratory Rate 18 17 Blood Pressure 135/54 L 141/57 H Pulse Oximetry 99 98 Oxygen Delivery Room Air 07/17/22 06:00 Temperature 97.4 F L Pulse Rate 77 Respiratory Rate 18 Blood Pressure 144/59 H Pulse Oximetry 96 Oxygen Delivery Intake/Output Intake/Output: Intake & Output 07/14/22 07/15/22 07/16/22 07/17/22 23:59 23:59 23:59 23:59 Intake Total 8986 433 2624 1240 Output Total 400 Balance 0181 663 5962 1240 Meds/Results Medications: Active Medications Generic Name Dose Route Start Last Admin Trade Name Freq PRN Reason Stop Dose Admin Acetaminophen 650 mg 07/14/22 18:25 07/14/22 18:38 Acetaminophen 325 Mg Tablet PO 650 mg Q6H PRN Administration Mild Pain (1-3) or Fever Dextrose 12.5 gm 07/13/22 02:11 Dextrose 50% 25 Gm/50 Ml Syringe IV PUSH PRN PRN Hypoglycemia Protocol Enoxaparin Sodium 30 mg 07/13/22 09:00 07/17/22 08:01 Enoxaparin 30 Mg/0.3 Ml Syringe SUB-Q 30 mg DAILY TRINA Administration Glucagon 1 mg 07/13/22 02:11 Glucagon For Inj 1 Mg Vial IM PRN PRN Hypoglycemia Protocol Glucose 15 gm 07/13/22 02:11 Glucose Oral Gel 15 Gm Of Glucse In 37.5 Gm Tube PO PRN PRN Hypoglycemia Protocol Dextrose 1,000 mls @ 100 mls/hr 07/13/22 02:11 Dextrose 5% 1,000 Ml IVPB PRN PRN Hypoglycemia Protocol Dextrose/Sodium Chloride 1,000 mls @ 0 mls/hr 07/16/22 12:35 07/17/22 06:10 Dextrose 5% Sodium Chloride 0.45% IV CONT 60 mls/hr .[id number] TRINA Administration KVO Insulin Aspart 2 - 5 units 07/13/22 08:00 07/17/22 10:41 Insulin Aspart (*Bkc) 100 Units/Ml SUB-Q Not Given TIDWM TRINA Protocol Metoclopramide HCl 10 mg 07/15/22 18:00 07/17/22 06:12 Metoclopramide Hcl Inj 10 Mg/2 Ml Vial IV PUSH 10 mg Q6HR TRINA Administration Ondansetron HCl 4 mg 07/11/22 21:58 07/17/22 02:55 Ondansetron Inj 4 Mg/2 Ml Vial IV PUSH 4 mg Q4H PRN Administration Nausea Pantoprazole Sodium 40 mg 07/16/22 09:00 07/17/22 08:01 Pantoprazole 40 Mg Tablet PO 40 mg QAM TRINA Administration Polyethylene Glycol 17 gm 07/15/22
[2022-07-17 12:12] LABS: Glucose Point of Care 119 mg/dl (65-105)
--- NOTE | 2022-07-17 13:57 | PM.IMPN ---
Progress Note: A&P Assessment and Plan (1) SBO (small bowel obstruction): Code(s): K56.609 - Unspecified intestinal obstruction, unspecified as to partial versus complete obstruction Status: Acute Assessment and Plan: improving, appreciate surgery consultation, monitor, tolerating diet ? colonoscopy if not advance diet and possible dc soon (2) Acute kidney injury superimposed on chronic kidney disease: Code(s): N17.9 - Acute kidney failure, unspecified; N18.9 - Chronic kidney disease, unspecified Status: Acute Assessment and Plan: appreciate nephrology consultation, being worked up for possible multiple myeloma improving on IV fluids (3) N&V (nausea and vomiting): Code(s): R11.2 - Nausea with vomiting, unspecified Status: Acute Assessment and Plan: resolved (4) GERD without esophagitis: Code(s): K21.9 - Gastro-esophageal reflux disease without esophagitis Status: Acute Assessment and Plan: PPI (5) Type 2 diabetes mellitus without complication, without long-term current use of insulin: Code(s): E11.9 - Type 2 diabetes mellitus without complications Status: Chronic Assessment and Plan: Insulin sliding scale as needed (6) Lytic bone lesions on xray: Code(s): M89.9 - Disorder of bone, unspecified Status: Acute Assessment and Plan: bone scan appears negative Plan DVT prophylaxis with lovenox GI prophylaxis with PPI Code status full code Subjective Date/time seen: 07/17/22 13:57 72-year-old female past medical history significant for chronic kidney disease, hypertension, type 2 diabetes mellitus, dyslipidemia.? Patient presents to the emergency room due to abdominal pain, nausea, vomiting she was diagnosed with COVID on 06/28 and was started on treatment for these has been having nausea vomiting and diarrhea ever since.? Preliminary workup was significant for creatinine of 3.8.presently creat is 1.3. Pt is not nauseated presently pt had large bowel movement pt for possible colonoscopy tomorrow Pt had bone scan in hospital no lytic lesions found more djd findings Exam Narrative: General: No acute distress, alert and oriented HEENT: Atraumatic, normocephalic, mucous membranes moist CV: Regular rate and rhythm, S1, S2 Lungs: Clear to auscultation bilaterally, no rales or crackles noted, no wheezes, good air entry Abdomen: Soft, nontender, nondistended Extremities: Normal to inspection Skin: No rashes noted, no lesions or wounds seen Psych: Euthymic, normal affect Objective Data Vital Signs Vital Signs: Vital Signs - 24 hr 07/16/22 14:00 07/16/22 20:00 07/16/22 22:00 Temperature 36.3 C L 36.4 C Pulse Rate 79 86 Respiratory Rate 18 17 Blood Pressure 135/54 L 141/57 H Pulse Oximetry 99 98 Oxygen Delivery Room Air 07/17/22 06:00 Temperature 36.3 C L Pulse Rate 77 Respiratory Rate 18 Blood Pressure 144/59 H Pulse Oximetry 96 Oxygen Delivery Intake/Output Intake/Output: Intake & Output 07/14/22 07/15/22 07/16/22 07/17/22 23:59 23:59 23:59 23:59 Intake Total 5139 327 9290 1360 Output Total 400 Balance 0270 836 0977 1360 Meds/Results Medications: Active Medications Generic Name Dose Route Start Last Admin Trade Name Freq PRN Reason Stop Dose Admin Acetaminophen 650 mg 07/14/22 18:25 07/14/22 18:38 Acetaminophen 325 Mg Tablet PO 650 mg Q6H PRN Administration Mild Pain (1-3) or Fever Dextrose 12.5 gm 07/13/22 02:11 Dextrose 50% 25 Gm/50 Ml Syringe IV PUSH PRN PRN Hypoglycemia Protocol Enoxaparin Sodium 30 mg 07/13/22 09:00 07/17/22 08:01 Enoxaparin 30 Mg/0.3 Ml Syringe SUB-Q 30 mg DAILY TRINA Administration Glucagon 1 mg 07/13/22 02:11 Glucagon For Inj 1 Mg Vial IM PRN PRN Hypoglycemia Protocol Glucose 15 gm 07/13/22 02:11 Glucose Oral Gel 15 Gm Of Glucse In 37.5 Gm Tube PO
[2022-07-17 14:00] VITALS: BP 128/63; PULSE 98; RESP 16; TEMP 35.8; O2SAT 99
[2022-07-17] MEDS: IRON SUCROSE COMPLEX 500 MG in SODIUM CHLORIDE 0.9% IV 250 ML 78.57 MG IVPB (14:33)
[2022-07-17 17:07] LABS: Glucose Point of Care 111 mg/dl (65-105)
[2022-07-17 20:00] VITALS: PULSE 99; RESP 18; O2SAT 99
[2022-07-17 21:27] LABS: Glucose Point of Care 102 mg/dl (65-105)
[2022-07-17 22:00] VITALS: BP 138/70; PULSE 99; RESP 18; TEMP 36.8; O2SAT 99
[2022-07-18] MEDS: METOCLOPRAMIDE HCL INJ 10 MG/2 ML VIAL IV PUSH ×2 (00:53→06:57)
[2022-07-18 06:00] VITALS: BP 108/51; PULSE 86; RESP 18; TEMP 36.1; O2SAT 96
[2022-07-18 06:29] LABS: Hematocrit 28.1 % (37.0-47.0); Hemoglobin 8.2 g/dL (12.0-15.0); Mean Corpuscular HGB Conc 29.2 g/dl (32-36); Mean Corpuscular Hemoglobin 21.4 pg (26-34); Mean Corpuscular Volume 73.2 fl (80-100); Mean Platelet Volume 10.7 fl (7.4-10.4); Platelet Count Result 241 k/mm3 (150-375); Red Blood Count 3.84 M/mm3 (4.2-5.4); Red Cell Distribution Width 13.4 % (11.5-14.5); White Blood Count 6.8 K/mm3 (4.5-10.0)
[2022-07-18 06:44] LABS: Anion Gap 4 mmol/L (8-16); Blood Urea Nitrogen 14 mg/dL (7-17); Calcium 8.9 mg/dL (8.4-10.2); Carbon Dioxide 28 mmol/L (22-30); Chloride 105 mmol/L (98-107); Estimated CRCL calculation 36 ml/min; Estimated Glomerular Filt Rate 45; Glucose 103 mg/dL (65-110); Potassium 3.8 mmol/L (3.4-5.0); Sodium 137 mmol/L (137-145)
[2022-07-18 08:00] LABS: Glucose Point of Care 105 mg/dl (65-105)
[2022-07-18] MEDS: PANTOPRAZOLE 40 MG TABLET PO (09:03)
[2022-07-18] MEDS: ENOXAPARIN 30 MG/0.3 ML SYRINGE SUB-Q (09:03)
[2022-07-18] MEDS: SIMETHICONE 125 MG CHEW TAB PO (09:03)
--- NOTE | 2022-07-18 10:55 | PM.PNGS ---
Progress Note: A&P Assessment and Plan (1) SBO (small bowel obstruction): Code(s): K56.609 - Unspecified intestinal obstruction, unspecified as to partial versus complete obstruction Status: Acute Assessment and Plan: Resolved. Her abdominal exam remains benign. She is tolerating a solid diet and bowels are moving. The nausea she was experiencing in the evenings was likely related to acid reflux, as it has resolved after starting Protonix. No indication for surgical intervention. We will sign off at this point. Please let us know if there are any surgical needs or concerns in the future. Plan I have discussed the patient's case and plan of care with Dr. Pitt. Subjective Subjective Date/Time Seen: 07/18/22 10:55 Patient reports: no new complaints, feels better, tolerating a regular diet, flatus and diarrhea Interval history: The patient is feeling well today. She denies any nausea again last night. She is still tolerating her diet and is moving her bowels. She continues to complain of loose stools, which she had prior to admission. She had 2 BMs yesterday and 3 overnight. No other complaints at this time. Review of Systems Review of Systems: ROS unchanged Exam Const: General: comfortable, no acute distress and awake Orientation/consciousness: patient oriented x3 GI: Inspection: non-distended GI Palp: Yes Soft to palpation, No Tenderness to palpation present (GI), No Guarding due to palpation present (GI) and No Rebound tenderness present Auscultation: normal bowel sounds Neuro: General: moves all extremities and no focal motor deficits Extrem: General: normal to inspection Objective Data Vital Signs Vital Signs: Vital Signs - 24 hr 07/17/22 14:00 07/17/22 22:00 07/17/22 20:00 Temperature 96.5 F L 98.2 F Pulse Rate 98 99 99 Respiratory Rate 16 18 18 Blood Pressure 128/63 138/70 Pulse Oximetry 99 99 99 Oxygen Delivery Room Air 07/18/22 06:00 Temperature 97 F L Pulse Rate 86 Respiratory Rate 18 Blood Pressure 108/51 L Pulse Oximetry 96 Oxygen Delivery Intake/Output Intake/Output: Intake & Output 07/15/22 07/16/22 07/17/22 07/18/22 23:59 23:59 23:59 23:59 Intake Total 970 1240 2060 240 Output Total 400 Balance 570 1240 2060 240 Meds/Results Medications: Active Medications Generic Name Dose Route Start Last Admin Trade Name Freq PRN Reason Stop Dose Admin Acetaminophen 650 mg 07/14/22 18:25 07/14/22 18:38 Acetaminophen 325 Mg Tablet PO 650 mg Q6H PRN Administration Mild Pain (1-3) or Fever Dextrose 12.5 gm 07/13/22 02:11 Dextrose 50% 25 Gm/50 Ml Syringe IV PUSH PRN PRN Hypoglycemia Protocol Enoxaparin Sodium 30 mg 07/13/22 09:00 07/18/22 09:03 Enoxaparin 30 Mg/0.3 Ml Syringe SUB-Q 30 mg DAILY TRINA Administration Glucagon 1 mg 07/13/22 02:11 Glucagon For Inj 1 Mg Vial IM PRN PRN Hypoglycemia Protocol Glucose 15 gm 07/13/22 02:11 Glucose Oral Gel 15 Gm Of Glucse In 37.5 Gm Tube PO PRN PRN Hypoglycemia Protocol Dextrose 1,000 mls @ 100 mls/hr 07/13/22 02:11 Dextrose 5% 1,000 Ml IVPB PRN PRN Hypoglycemia Protocol Dextrose/Sodium Chloride 1,000 mls @ 0 mls/hr 07/16/22 12:35 07/17/22 06:10 Dextrose 5% Sodium Chloride 0.45% IV CONT 60 mls/hr .[id number] TRINA Administration KVO Insulin Aspart 2 - 5 units 07/13/22 08:00 07/18/22 08:10 Insulin Aspart (*Bkc) 100 Units/Ml SUB-Q Not Given TIDWM TRINA Protocol Metoclopramide HCl 10 mg 07/15/22 18:00 07/18/22 06:57 Metoclopramide Hcl Inj 10 Mg/2 Ml Vial IV PUSH 10 mg Q6HR TRINA Administration Ondansetron HCl 4 mg 07/11/22 21:58 07/17/22 16:45 Ondansetron Inj 4 Mg/2 Ml Vial IV PUSH 4 mg Q4H PRN Administration Nausea Pantoprazole Sodium 40 mg 07/16/22 09:00 07/18/22 09:03 Pantoprazole 40 Mg Tablet PO 40 mg QAM TRINA Administration Polyethyl
--- NOTE | 2022-07-18 11:54 | PM.DS ---
DS: Admitting Diagnosis Discharge Date 07/18/22 Admitting Diagnosis Abdominal pain, nausea, vomiting DS: Discharge Diagnosis Discharge Diagnosis (1) SBO (small bowel obstruction): Code(s): K56.609 - Unspecified intestinal obstruction, unspecified as to partial versus complete obstruction Status: Acute Assessment and Plan: improving, appreciate surgery consultation, monitor, tolerating diet ? colonoscopy if not advance diet and possible dc soon (2) Acute kidney injury superimposed on chronic kidney disease: Code(s): N17.9 - Acute kidney failure, unspecified; N18.9 - Chronic kidney disease, unspecified Status: Acute Assessment and Plan: appreciate nephrology consultation, being worked up for possible multiple myeloma improving on IV fluids (3) N&V (nausea and vomiting): Code(s): R11.2 - Nausea with vomiting, unspecified Status: Acute Assessment and Plan: resolved (4) GERD without esophagitis: Code(s): K21.9 - Gastro-esophageal reflux disease without esophagitis Status: Acute Assessment and Plan: PPI (5) Type 2 diabetes mellitus without complication, without long-term current use of insulin: Code(s): E11.9 - Type 2 diabetes mellitus without complications Status: Chronic Assessment and Plan: Insulin sliding scale as needed (6) Lytic bone lesions on xray: Code(s): M89.9 - Disorder of bone, unspecified Status: Acute Assessment and Plan: bone scan appears negative Plan DVT prophylaxis with lovenox GI prophylaxis with PPI Code status full code DS: Summary Hospital Course Hospital Course: 72-year-old female past medical history significant for chronic kidney disease, hypertension, type 2 diabetes mellitus, dyslipidemia.? Patient presents to the emergency room due to abdominal pain, nausea, vomiting she was diagnosed with COVID on 06/28 and was started on treatment for these has been having nausea vomiting and diarrhea ever since. General surgery was consulted for suspected small bowel obstruction. Patient responded well to medical management. All symptoms resolved, she was tolerating p.o., surgery recommended discharge and signed off. Patient developed mild acute kidney injury nephrology was consulted. This resolved with gentle IV fluid hydration. No further workup necessary. Patient was noted to be anemic. Hematology/oncology was consulted due to concerns for multiple myeloma due to acute kidney injury as well as lytic lesion noted on imaging in her spine. Bone scan was done and was negative, however, this is not sensitive for multiple myeloma. They signed off and recommended outpatient follow-up. Patient was discharged in stable condition with close outpatient follow-up by Nephrology and Oncology to continue workup for possible multiple myeloma as well as her acute kidney injury. Repeat BMP in 1 week to confirm stabilization of creatinine. Time Spent with Patient Time attestation: Total time spent providing and/or coordinating discharge services: Exam Narrative: General: No acute distress, alert and oriented HEENT: Atraumatic, normocephalic, mucous membranes moist CV: Regular rate and rhythm, S1, S2 Lungs: Clear to auscultation bilaterally, no rales or crackles noted, no wheezes, good air entry Abdomen: Soft, nontender, nondistended Extremities: Normal to inspection Skin: No rashes noted, no lesions or wounds seen Psych: Euthymic, normal affect DS: Data Data Completed and Pending Labs on day of discharge: Labs from last 24 hours 07/18/22 07/18/22 07/18/22 07:53 06:13 06:13 WBC 6.8 RBC 3.84 L Hgb 8.2 L Hct 28.1 L MCV 73.2 L MCH 21.4 L MCHC 29.2 L RDW 13.4 Plt Count 241 MPV 10.7 H Sodium 137 Potassium 3.8 Chloride 105 Carbon Dioxide 28 Anion Gap 4 L BUN 14 Creatinine 1.40 H Estim Creat Clear Calc 36 Estimated GFR
[2022-07-18 11:58] LABS: Glucose Point of Care 116 mg/dl (65-105)
--- NOTE | 2022-07-18 12:00 | WPDGICN ---
GI Consult Note Consult date/time: 07/18/22 12:00 Reason for consult: I never saw the patient, she left before I could see her. HPI: Marbella Rivero is a 72 year old female [facility] Past Medical History Medical History Arthritis CKD (chronic kidney disease) stage 3, GFR 30-59 ml/min Dyslipidemia Essential (primary) hypertension GERD without esophagitis History of deep venous thrombosis (DVT) of distal vein of left lower extremity Type 2 diabetes mellitus without complication, without long-term current use of insulin Vitamin D deficiency Surgical History Surgical History History of hysterectomy 1984 partial hysterectomy History of superficial parotidectomy 1999 - benign tumor History of toe surgery 2004 - Right foot 5th toe surgery Hx of lumbosacral spine surgery 1994 Family History Family History Grandparent Diabetes mellitus Sibling Hypertension Father Cerebrovascular accident Mother Carcinoma of colon Other Family history of coronary artery disease Social History Social History Smoking status: Never smoker Second hand tobacco smoke exposure: No Alcohol intake: never Alcohol use details: occasionnally Substance use: never Substance use type: does not use Lack of Transportation: No Lack of Food: Never True Current Housing: I Have Housing Concerned About Future Housing: No Difficulty Paying Gas/Electric Bills: No Difficulty Paying for Meds: No Currently Unemployed: No Education: Don't Know Difficulty w/ Childcare or Family Care: No Gender identity (if verbalized by the patient): Female Spiritual care concerns: No Agree to blood products: Yes Meds Home Medications and Allergies Home Medications Medication Instructions Recorded Confirmed Type lancets 30 gauge (Ultra Thin See Rx Instructions .Route 11/27/19 07/12/22 Rx Lancets) .COMPLEX E11.9 ##100 blood sugar diagnostic (Advanced See Rx Instructions .Route 10/11/20 07/12/22 Rx Glucose Meter Test Strips) .COMPLEX #100 strips aspirin 81 mg tablet,delayed 81 mg PO DAILY 01/30/21 07/12/22 History release metformin 500 mg tablet,extended 1,000 mg PO QPM #180 tabs 06/21/21 07/12/22 Rx release 24 hr simvastatin 20 mg tablet 20 mg PO QHS #90 tabs 11/28/21 07/12/22 Rx cholecalciferol (vitamin D3) 50 50 mcg PO DAILY 01/30/22 07/12/22 History mcg (2,000 unit) tablet lisinopril 20 1 tablet PO DAILY #90 tabs 06/29/22 07/12/22 Rx mg-hydrochlorothiazide 12.5 mg tablet Allergies Allergy/AdvReac Type Severity Reaction Status Date / Time iohexol Allergy Mild Vomiting Verified 07/12/22 15:05 [From CONTRAST - CT, XRAY] codeine Allergy Unknown Other Verified 07/12/22 15:05 Results Labs 07/18/22 06:13 07/18/22 06:13
[2022-07-18 15:38] LABS: Albumin 3.3 g/dL (3.8-4.8); Alpha 1 Globulin 0.4 g/dL (0.2-0.3); Alpha 2 Globulin 0.9 g/dL (0.5-0.9); Beta 1 Globulin 0.4 g/dL (0.4-0.6); Gamma Globulin 0.9 g/dL (0.8-1.7); Protein, Total 6.2 g/dL (6.1-8.1)
[2022-07-18 16:36] LABS: Kappa\\Lambda Light Chains 0.91 (0.26-1.65); Lambda Light Chain 25.6 mg/L (5.7-26.3)
== END 2022-07-18 14:21 | disposition home or self-care (01) | DRG 683 ==
LOC: ANHED 22:33 → ANH3MEDSUR 07-12 01:18
PROVIDERS: Emergency Medicine; Family Medicine; Hospitalist; Internal Medicine Hematology & Oncology; Internal Medicine Nephrology; Nurse Practitioner Family; Admitting Provider Internal Medicine; Emergency Provider Emergency Medicine; PCP Family Medicine; Visit Provider Student in an Organized Health Care Education/Training Program
DX: N17.9 Acute kidney failure, unspecified (principal); E87.1 Hypo-osmolality and hyponatremia; K56.51 Intestinal adhesions [bands], with partial obstruction; I12.9 Hypertensive chronic kidney disease with stage 1 through stage 4 chronic kidney disease, or unspecified chronic kidney disease; E11.22 Type 2 diabetes mellitus with diabetic chronic kidney disease; Z20.822 Contact with and (suspected) exposure to COVID-19; E86.0 Dehydration; N18.32 Chronic kidney disease, stage 3b; K21.9 Gastro-esophageal reflux disease without esophagitis; M89.9 Disorder of bone, unspecified; E78.5 Hyperlipidemia, unspecified; M19.90 Unspecified osteoarthritis, unspecified site; Z86.16 Personal history of COVID-19; Z90.710 Acquired absence of both cervix and uterus; Z79.84 Long term (current) use of oral hypoglycemic drugs; Z86.718 Personal history of other venous thrombosis and embolism
CPT/HCPCS: 36415; 71046; 74018; 74176; 74250; 78306; 80048; 80053; 80069; 81001; 81003; 82378; 82607; 82728; 82746; 82784; 82948; 83540; 83550; 83615; 83690; 83735; 83883; 84100; 84155; 84165; 85025; 85027; 85610; 85730; 87636; 93005; 96361; 96365; 96375; 96376; 99285; A9270; A9503; C9113; G0378; J1650; J1756; J2405; J2543; J2765; J7030; J7050

== ENCOUNTER → 2022-07-20 12:12 | Outpatient (CLI) | payer MEDICARE, SELFPAY ==
--- NOTE | ~2022-07-20 | DEXA_ITS ---
Bone Density Report Name: MADISON BOOKER I Age: 72 Sex: Female Ethnicity: Black Date of : 1950 Indication: postmenopausal; screening for osteoporosis; height loss; hysterectomy; Referring Provider: RAHUL TAVERAS Study: Bone densitometry was performed. Exam Date: July 20, 2022 Accession number: [id number] Bone Density: Region BMD T-score Z-score Classification AP Spine (L1-L4) 1.437 3.5 5.0 Normal Femoral Neck (Left) 0.888 0.3 1.0 Normal Total Hip (Left) 1.154 1.7 1.9 Normal Femoral Neck (Right) 0.957 1.0 1.5 Normal Total Hip (Right) 1.185 2.0 2.1 Normal Total Hip Mean 1.170 1.9 2.0 Normal World Health Organization criteria for BMD impression classify patients as: Normal (T-score at or above -1.0), Osteopenia (T-score between -1.0 and -2.5), or Osteoporosis (T-score at or below -2.5). 10-year Fracture Risk: FRAX not reported because: All T-scores for Spine Total, Hip Total, Femoral Neck at or above -1.0 Previous Exams: Region Exam Age BMD T-score BMD Change BMD Change Date g/cm2 vs Baseline vs Previous AP Spine(L1-L4) 07/20/2022 72 1.437 3.5 0.093 0.039 07/14/2018 68 1.398 3.2 0.054* 0.064 04/25/2015 65 1.334 2.6 -0.010 0.002 11/12/2011 61 1.333 2.6 -0.012 0.062 07/28/2008 58 1.271 2.0 -0.074 -0.074 12/11/2005 55 1.344 2.7 Total Hip(Left) 07/20/2022 72 1.154 1.7 -0.139 -0.080 07/14/2018 68 1.234 2.4 -0.059* -0.093 04/25/2015 65 1.326 3.2 0.033 0.143 11/12/2011 61 1.184 2.0 -0.109* -0.024 07/28/2008 58 1.207 2.2 -0.086 -0.086 12/11/2005 55 1.293 2.9 Total Hip(Right) 07/20/2022 72 1.185 2.0 -0.130 -0.061 07/14/2018 68 1.246 2.5 -0.069* -0.075 04/25/2015 65 1.321 3.1 0.007 0.078 11/12/2011 61 1.244 2.5 -0.071* -0.007 07/28/2008 58 1.251 2.5 -0.064 -0.064 12/11/2005 55 1.315 3.1 *Denotes significance at 95% confidence level, LSC for AP Spine = 0.022 g/cm2, LSC for Total Hip = 0.027 g/cm2 Clinical Information Provided by Patient: Has used the following medications: Vitamin D Has the following medical conditions: Hysterectomy Patient maximum height was 65 Menopause Age: 34 Drinks caffeinated beverages Onset of menses
== END ==
PROVIDERS: PCP Family Medicine; Visit Provider Obstetrics & Gynecology
DX: Z78.0 Asymptomatic menopausal state (principal)
CPT/HCPCS: 77080

== ENCOUNTER 2022-08-03 12:57 | Outpatient (CLI) | payer MEDICARE, SELFPAY ==
[2022-08-03 13:19] LABS: Basophils Percent Auto 0.5 % (0.2-1.2); Eosinophils Absolute Auto 0.1 K/mm3 (0-0.3); Eosinophils Percent Auto 2.3 % (0-4.4); Hemoglobin 9.1 g/dL (12.0-15.0); Immature Granulocyte Absolute 0.01 K/mm3 (0.00-0.031); Immature Granulocyte Percent A 0.2 % (0-0.5); Lymphocytes Absolute Auto 2.62 K/mm3 (0.9-3.2); Lymphocytes Percent Auto 42.3 % (18.3-44.2); Mean Corpuscular HGB Conc 28.4 g/dl (32-36); Mean Corpuscular Hemoglobin 21.7 pg (26-34); Mean Corpuscular Volume 76.4 fl (80-100); Monocytes Absolute Auto 0.5 K/mm3 (0.1-0.6); Monocytes Percent Auto 8.2 % (2.6-8.5); Neutrophils Absolute Auto 2.9 K/mm3 (1.3-6.7); Neutrophils Percent Auto 46.5 % (45.5-73.1); Platelet Count Result 268 k/mm3 (150-375); Red Blood Count 4.19 M/mm3 (4.2-5.4); Red Cell Distribution Width 14.1 % (11.5-14.5); White Blood Count 6.2 K/mm3 (4.5-10.0)
[2022-08-03 13:24] LABS: Crenated RBC 1+ (NORMAL); Hypochromasia 1+ (NORMAL); Ovalocytes 1+ (NORMAL); Platelet Estimate Adequate (Adequate); Schistocytes None Seen (NORMAL)
[2022-08-03 13:25] LABS: Poikilocytosis 2+ (NORMAL)
[2022-08-03 15:52] LABS: Iron 50 ug/dL (37-170)
[2022-08-03 15:53] LABS: Alanine Aminotransferase 25 U/L (6-35); Albumin Level 4.2 g/dL (3.5-5.1); Alkaline Phosphatase 48 U/L (38-126); Anion Gap 5 mmol/L (8-16); Aspartate Amino Transferase 23 U/L (14-36); Bilirubin,Total 0.7 mg/dL (0.2-1.3); Blood Urea Nitrogen 17 mg/dL (7-17); Calcium 10.7 mg/dL (8.4-10.2); Carbon Dioxide 28 mmol/L (22-30); Chloride 103 mmol/L (98-107); Estimated Glomerular Filt Rate 49; Glucose 105 mg/dL (65-110); Potassium 4.2 mmol/L (3.4-5.0); Sodium 136 mmol/L (137-145)
[2022-08-03 16:01] LABS: Percent Iron Saturation 16 % (20-50)
== END 2022-08-03 12:58 | disposition home or self-care (01) ==
LOC: ANHLAB 12:58
PROVIDERS: PCP Family Medicine; Visit Provider Internal Medicine Hematology & Oncology
DX: D50.9 Iron deficiency anemia, unspecified (principal)
CPT/HCPCS: 36415; 80053; 82728; 83540; 83550; 85025

== ENCOUNTER 2022-08-16 11:18 | Outpatient (CLI) | payer MEDICARE, SELFPAY ==
--- NOTE | ~2022-08-16 | XR_ITS ---
EXAMINATION: XR bone survey comp/metastic DATE: 08/16/2022 12:00 INDICATION: Lytic bone lesions in lumbar spine. TECHNIQUE: 29 views of a skeletal survey were obtained. COMPARISON: CT abdomen and pelvis 07/11/2022, bone scan 07/16/2022 FINDINGS: There are no lytic lesions of bone. IMPRESSION: 1. No lytic bone lesions identified. The lytic bone lesions in the lumbar spine seen on the prior CT are not visible. Reviewed, dictated and finalized at location A. TER [facility]
== END 2022-08-16 11:19 | disposition home or self-care (01) ==
PROVIDERS: PCP Family Medicine; Visit Provider Internal Medicine Hematology & Oncology
DX: M89.9 Disorder of bone, unspecified (principal)
CPT/HCPCS: 77075

== ENCOUNTER 2022-09-12 00:35 | Day surgery (SDC) | payer MEDICARE, SELFPAY ==
[2022-08-30 12:18] VITALS: BMI 32.9
[2022-09-12 08:36] VITALS: BP 140/94; PULSE 98; RESP 22; TEMP 36.4; O2SAT 98; BMI 32.8
--- NOTE | 2022-09-12 08:59 | WPDANESEPPF ---
Anes - Initial Pre Proc Eval Procedure: Operation Date: 09/12/22 10:00 Proposed Procedures p Colonoscopy - Boy Lara MD Date/Time: 09/12/22 08:59 Surgeon: Boy Lara MD Pre Op Diagnosis: VIDAL, family hx colon ca Patient Data Age: 72 Gender: F Height: 1.63 m Weight: 86.7 kg Last Vital Signs Temp 97.5 F L 09/12/22 08:36 Pulse 98 09/12/22 08:36 Resp 22 H 09/12/22 08:36 BP 140/94 H 09/12/22 08:36 Pulse Ox 98 09/12/22 08:36 O2 Del Method Room Air 09/12/22 08:36 Allergies Allergy/AdvReac Type Severity Reaction Status Date / Time iohexol Allergy Mild Vomiting Verified 09/12/22 08:35 [From CONTRAST - CT, XRAY] codeine Allergy Unknown Other Verified 09/12/22 08:35 Home Medications Medication Instructions Recorded Confirmed Type lancets 30 gauge (Ultra Thin See Rx Instructions .Route 11/27/19 08/30/22 Rx Lancets) .COMPLEX E11.9 ##100 aspirin 81 mg tablet,delayed 81 mg PO DAILY 01/30/21 08/30/22 History release metformin 500 mg tablet,extended 1,000 mg PO QPM #180 tabs 06/21/21 08/30/22 Rx release 24 hr simvastatin 20 mg tablet 20 mg PO QHS #90 tabs 11/28/21 08/30/22 Rx cholecalciferol (vitamin D3) 50 50 mcg PO DAILY 01/30/22 08/30/22 History mcg (2,000 unit) tablet lisinopril 20 1 tablet PO DAILY #90 tabs 06/29/22 08/30/22 Rx mg-hydrochlorothiazide 12.5 mg tablet blood sugar diagnostic (Advanced See Rx Instructions .Route 08/03/22 08/30/22 Rx Glucose Meter Test Strips) .COMPLEX #100 strips Marcos-Iron 325 mg PO DAILY 08/30/22 08/30/22 History Vitamin C 1 tab-cap PO DAILY 08/30/22 08/30/22 History Patient hx anesthesia problems: none Family hx anesthesia problems: none Results Review: All pre-operative results and documents have been reviewed as part of the pre-operative evaluation. [facility] Past Medical History Medical History Arthritis CKD (chronic kidney disease) stage 3, GFR 30-59 ml/min Dyslipidemia Essential (primary) hypertension GERD without esophagitis History of deep venous thrombosis (DVT) of distal vein of left lower extremity Type 2 diabetes mellitus without complication, without long-term current use of insulin Vitamin D deficiency Surgical History Surgical History History of hysterectomy 1984 partial hysterectomy History of superficial parotidectomy 1999 - benign tumor History of toe surgery 2004 - Right foot 5th toe surgery Hx of lumbosacral spine surgery 1994 Family History Family History Grandparent Diabetes mellitus Sibling Hypertension Father Cerebrovascular accident Mother Carcinoma of colon Other Family history of coronary artery disease Social History Social History Smoking status: Never smoker Second hand tobacco smoke exposure: No Alcohol intake: never Alcohol use details: occasionnally Substance use: never Substance use type: does not use Lack of Transportation: No Lack of Food: Never True Current Housing: I Have Housing Concerned About Future Housing: No Difficulty Paying Gas/Electric Bills: No Difficulty Paying for Meds: No Currently Unemployed: No Education: Don't Know Difficulty w/ Childcare or Family Care: No Living arrangements: with family Occupation/Education: retired Gender identity (if verbalized by the patient): Female Spiritual care concerns: No Agree to blood products: Yes Anes - Eval Final PreProcedure Day of Procedure 09/12/22 08:59 Patient weight: obese Heart: regular rate and rhythm Lungs: clear to auscultation Airway: Mallampati scale class II Neurological: alert and oriented Last oral intake: >/= 8 hours ASA classification: III Emergent: no Anesthetic plan: proceed Anesthesia type and monit
[2022-09-12] MEDS: LACTATED RINGERS 1,000 ML 150 ML IV CONT (09:01)
[2022-09-12 09:02] LABS: Glucose Point of Care 118 mg/dl (65-105)
--- NOTE | 2022-09-12 09:14 | PM.HPGS ---
History of Present Illness History of Present Illness Consent: Risks, benefits, and alternatives have been discussed and questions answered. Patient agrees to proceed with procedure. Chief complaint: VIDAL, family hx colon ca Narrative: Marbella Rivero is a 72 year old female with last colonoscopy 5 years ago, she had polyps and mother also had colon cancer Review of Systems Constitutional: Constitutional: Denies headache(s) and Denies weakness Eyes: Eyes: Denies blurry vision ENT: Reports Normal hearing present, Denies headache(s) and Denies neck pain Cardiovascular: Cardiovascular: Denies chest pain and Denies dyspnea Respiratory: Respiratory: Denies dyspnea Gastrointestinal: Gastrointestinal: Reports no additional gastrointestinal complaints Genitourinary: Genitourinary: Denies dysuria Musculoskeletal: Musculoskeletal: Denies neck pain Integumentary/Breasts: Skin/Breast: Denies dry skin Neurologic: Reports Normal hearing present, Denies headache(s) and Denies weakness Psychiatric: Psychiatric: Denies anxiety Endocrine: Endocrine: Denies change in body appearance Hematologic/Lymphatic: Hematologic/Lymphatic: Denies easy bleeding Allergic/Immunologic: Allergic/Immunologic: Denies urticaria PMF Past Medical History Medical History (Updated 09/12/22 @ 09:15 by Boy Lara MD) Arthritis CKD (chronic kidney disease) stage 3, GFR 30-59 ml/min Colon polyp Dyslipidemia Essential (primary) hypertension Family history of colon cancer in mother GERD without esophagitis History of deep venous thrombosis (DVT) of distal vein of left lower extremity Type 2 diabetes mellitus without complication, without long-term current use of insulin Vitamin D deficiency Surgical History Surgical History History of hysterectomy 1984 partial hysterectomy History of superficial parotidectomy 1999 - benign tumor History of toe surgery 2004 - Right foot 5th toe surgery Hx of lumbosacral spine surgery 1994 Family History Family History Grandparent Diabetes mellitus Sibling Hypertension Father Cerebrovascular accident Mother Carcinoma of colon Other Family history of coronary artery disease Social History Social History Smoking status: Never smoker Second hand tobacco smoke exposure: No Alcohol intake: never Alcohol use details: occasionnally Substance use: never Substance use type: does not use Lack of Transportation: No Lack of Food: Never True Current Housing: I Have Housing Concerned About Future Housing: No Difficulty Paying Gas/Electric Bills: No Difficulty Paying for Meds: No Currently Unemployed: No Education: Don't Know Difficulty w/ Childcare or Family Care: No Living arrangements: with family Occupation/Education: retired Gender identity (if verbalized by the patient): Female Spiritual care concerns: No Agree to blood products: Yes Meds Home Medications and Allergies Home Medications Medication Instructions Recorded Confirmed Type lancets 30 gauge (Ultra Thin See Rx Instructions .Route 11/27/19 08/30/22 Rx Lancets) .COMPLEX E11.9 ##100 aspirin 81 mg tablet,delayed 81 mg PO DAILY 01/30/21 08/30/22 History release metformin 500 mg tablet,extended 1,000 mg PO QPM #180 tabs 06/21/21 08/30/22 Rx release 24 hr simvastatin 20 mg tablet 20 mg PO QHS #90 tabs 11/28/21 08/30/22 Rx cholecalciferol (vitamin D3) 50 50 mcg PO DAILY 01/30/22 08/30/22 History mcg (2,000 unit) tablet lisinopril 20 1 tablet PO DAILY #90 tabs 06/29/22 08/30/22 Rx mg-hydrochlorothiazide 12.5 mg tablet blood sugar diagnostic (Advanced See Rx Instructions .Route 08/03/22 08/30/22 Rx Glucose Meter Test Strips) .COMPLEX #100 strips Marcos-Iron 325 mg PO DAILY 08/30/22 08/30/22 History Alana
[2022-09-12 09:38] VITALS: BP 107/48; PULSE 73; RESP 23; O2SAT 99
[2022-09-12 09:48] VITALS: BP 91/45; PULSE 63; RESP 25; O2SAT 100
[2022-09-12 09:58] VITALS: BP 99/42; PULSE 67; RESP 21; O2SAT 100
== END 2022-09-12 10:08 | disposition home or self-care (01) ==
PROVIDERS: PCP Family Medicine; Visit Provider Internal Medicine Gastroenterology
PROC: 0DJD8ZZ Inspection of Lower Intestinal Tract, Via Natural or Artificial Opening Endoscopic (ICD-10-PCS; CPT 45378; principal; 2022-09-12 10:00)
DX: Z12.11 Encounter for screening for malignant neoplasm of colon (principal); K57.30 Diverticulosis of large intestine without perforation or abscess without bleeding; Z86.010 Personal history of colon polyps; Z80.0 Family history of malignant neoplasm of digestive organs; I12.9 Hypertensive chronic kidney disease with stage 1 through stage 4 chronic kidney disease, or unspecified chronic kidney disease; E11.22 Type 2 diabetes mellitus with diabetic chronic kidney disease; N18.30 Chronic kidney disease, stage 3 unspecified; K21.9 Gastro-esophageal reflux disease without esophagitis; E55.9 Vitamin D deficiency, unspecified; Z86.718 Personal history of other venous thrombosis and embolism; E66.9 Obesity, unspecified; Z68.32 Body mass index [BMI] 32.0-32.9, adult; Z79.82 Long term (current) use of aspirin; Z79.84 Long term (current) use of oral hypoglycemic drugs
CPT/HCPCS: G0105; 82948; J2704; J7120

== ENCOUNTER 2024-03-31 11:47 | Outpatient (CLI) | payer MEDICARE, SELFPAY ==
--- NOTE | ~2024-03-31 | XR_ITS ---
Clinical Indication: Cough, shortness of breath PA and lateral views of the chest: Comparison: 07/11/2022 Findings: The lungs are clear, without evidence of focal consolidation or pleural effusion. Stable pr obable calcified density along left side of the lower thoracic spine, projecting along the left heart . Cardiomediastinal silhouette is within normal limits. Bones and soft tissues are unremarkable. Impression: Clear lungs. No acute abnormality. Stable calcified density along left paravertebral region, projecting over the left heart. This could reflect large osteophyte or other probable calcified lesion. Reviewed, dictated and finalized at location M. Impression: Clear lungs. No acute abnormality. Stable calcified density along left paravertebral region, projecting over the l eft heart. This could reflect large osteophyte or other probable calcified lesi on.
== END 2024-03-31 11:48 | disposition home or self-care (01) ==
PROVIDERS: PCP Family Medicine; Visit Provider Family Medicine
DX: R06.02 Shortness of breath (principal); R05.9 Cough, unspecified
CPT/HCPCS: 71046

== ENCOUNTER 2024-03-31 12:42 | Outpatient (CLI) | payer MEDICARE, SELFPAY ==
[2024-03-31 19:54] LABS: Basophils Percent Auto 0.6 % (0.2-1.2); Eosinophils Absolute Auto 0.1 K/mm3 (0-0.3); Eosinophils Percent Auto 2.1 % (0-4.4); Hematocrit 35.8 % (37.0-47.0); Hemoglobin 10.2 g/dL (12.0-15.0); Immature Granulocyte Absolute 0.02 K/mm3 (0.00-0.031); Immature Granulocyte Percent A 0.3 % (0-0.5); Lymphocytes Absolute Auto 2.44 K/mm3 (0.9-3.2); Lymphocytes Percent Auto 38.7 % (18.3-44.2); Mean Corpuscular HGB Conc 28.5 g/dl (32-36); Mean Corpuscular Hemoglobin 21.7 pg (26-34); Mean Corpuscular Volume 76.2 fl (80-100); Mean Platelet Volume 11.2 fl (7.4-10.4); Monocytes Absolute Auto 0.5 K/mm3 (0.1-0.6); Monocytes Percent Auto 7.6 % (2.6-8.5); Neutrophils Absolute Auto 3.2 K/mm3 (1.3-6.7); Neutrophils Percent Auto 50.7 % (45.5-73.1); Platelet Count Result 250 k/mm3 (150-375); White Blood Count 6.3 K/mm3 (4.5-10.0)
[2024-03-31 20:00] LABS: Alanine Aminotransferase 30 U/L (6-35); Albumin Level 4.2 g/dL (3.5-5.1); Alkaline Phosphatase 57 U/L (38-126); Anion Gap 9 mmol/L (4-12); Aspartate Amino Transferase 36 U/L (14-36); Bilirubin,Total 0.7 mg/dL (0.2-1.3); Blood Urea Nitrogen 27 mg/dL (7-17); Calcium 11.1 mg/dL (8.4-10.2); Carbon Dioxide 28 mmol/L (22-30); Chloride 101 mmol/L (98-107); Estimated Glomerular Filt Rate 31; Glucose 114 mg/dL (65-110); Potassium 4.5 mmol/L (3.4-5.0); Sodium 138 mmol/L (137-145)
[2024-03-31 20:18] LABS: Ovalocytes 1+; Platelet Estimate Adequate (Adequate)
[2024-03-31 20:19] LABS: Burr Cells 1+; Schistocytes None Seen
[2024-03-31 20:57] LABS: Vitamin D 25 Hydroxy 67.1 ng/mL
== END 2024-03-31 12:43 | disposition home or self-care (01) ==
LOC: ANHGOSHLAB 12:44
PROVIDERS: PCP Family Medicine; Visit Provider Family Medicine
DX: E55.9 Vitamin D deficiency, unspecified (principal); I10 Essential (primary) hypertension; D64.9 Anemia, unspecified
CPT/HCPCS: 36415; 80053; 82306; 85025

== ENCOUNTER 2024-04-09 12:49 | Outpatient (CLI) | payer MEDICARE, SELFPAY ==
--- NOTE | ~2024-04-09 | CT_ITS ---
CT Scan of the Chest without Contrast: Clinical Indication: Chronic cough Technique: Contiguous sections were acquired throughout the chest without intravenous contrast. Dose reduction technique was used on this scan by utilizing automated exposure control and iterative recon struction technique. The dose-length product (DLP) was 416.13 mGy-cm. Findings: There is no evidence of any significant mediastinal, hilar or axillary lymphadenopathy. Extensive cor onary artery calcifications are present. There is no evidence of pleural or pericardial effusion. The lungs are clear. No pulmonary nodules or infiltrates are noted. Images through the upper abdomen reveal gallstones and/or gallbladder wall calcification. There are h yperdense right renal masses. Impression: Clear lungs. Hypodense right renal masses. Recommend ultrasound or pre and postcontrast CT/MR to evaluate for hype rdense cysts versus solid lesions. Cholelithiasis. Reviewed, dictated and finalized at [facility]. Impression: Clear lungs. Hypodense right renal masses. Recommend ultrasound or pre and postcontrast CT/M R to evaluate for hyperdense cysts versus solid lesions. Cholelithiasis.
== END 2024-04-09 12:50 | disposition home or self-care (01) ==
LOC: MICIMG 12:50
PROVIDERS: PCP Family Medicine; Visit Provider Family Medicine
DX: R05.3 Chronic cough (principal); N28.89 Other specified disorders of kidney and ureter; K80.20 Calculus of gallbladder without cholecystitis without obstruction
CPT/HCPCS: 71250

== ENCOUNTER 2024-04-14 10:32 | Outpatient (CLI) | payer MEDICARE, SELFPAY ==
--- NOTE | ~2024-04-14 | US_ITS ---
EXAMINATION: US renal BI DATE: 04/14/2024 10:48 INDICATION: Other specified disorders of kidney and ureter. TECHNIQUE: Multiple ultrasound grayscale images of the kidneys were obtained. COMPARISON: Chest CT 04/09/2024, CT abdomen and pelvis 07/11/22 FINDINGS: The right kidney measures 10.0 x 3.8 x 4.1 cm. The left kidney measures 10.8 x 3.6 x 5.2 cm. The kidn eys demonstrate normal parenchymal echogenicity. There is a 1.9 cm hypoechoic mass in right kidney. T here is a 1.4 cm hypoechoic mass in left kidney. There is no hydronephrosis. The bladder is normal. IMPRESSION: 1. Bilateral kidney masses, which may be hemorrhagic cysts or less likely neoplasm(s). Abdomen CT or MRI without and with contrast is recommended. Reviewed, dictated and finalized at location A. IMPRESSION: 1. Bilateral kidney masses, which may be hemorrhagic cysts or less likely neop lasm(s). Abdomen CT or MRI without and with contrast is recommended.
== END 2024-04-14 10:33 | disposition home or self-care (01) ==
LOC: GOSHIMG 10:34
PROVIDERS: PCP Internal Medicine Nephrology; Visit Provider Family Medicine
DX: N28.89 Other specified disorders of kidney and ureter (principal)
CPT/HCPCS: 76775

== ENCOUNTER 2024-05-15 10:33 | Outpatient (CLI) | payer MEDICARE, SELFPAY ==
--- NOTE | ~2024-05-15 | MR_ITS ---
EXAMINATION: MR abdomen wo/w con DATE: 05/15/2024 11:52 INDICATION: Other specified disorders of kidney and ureter. Bilateral kidney masses. TECHNIQUE: Magnetic resonance imaging (MRI) of the abdomen was performed without and with 17 mL Multi Meghna intravenous contrast. COMPARISON: Ultrasound kidneys 04/14/2024 FINDINGS: The liver is normal. There are gallstones in the gallbladder, which is normal in size. The common pooja t is normal in size and measures 7 mm. There are multiple stones in the common duct. The spleen is no rmal. There is a 3 mm cyst in the tail of the pancreas, likely benign. Pancreas divisum is noted. The adrenal glands are normal. There are cysts and hemorrhagic cysts in the kidneys measuring up to 2.9 cm on the left. There are no dilated loops of bowel. IMPRESSION: 1. Benign cysts in the kidneys. 2. Choledocholithiasis. 3. Cholelithiasis. Reviewed, dictated and finalized at location A. 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
== END 2024-05-15 10:34 | disposition home or self-care (01) ==
PROVIDERS: PCP Internal Medicine Nephrology; Visit Provider Family Medicine
DX: N28.89 Other specified disorders of kidney and ureter (principal); N28.1 Cyst of kidney, acquired; K80.20 Calculus of gallbladder without cholecystitis without obstruction
CPT/HCPCS: 74183; A9577

== ENCOUNTER 2024-06-16 00:25 | Day surgery (SDC) | payer MEDICARE, SELFPAY ==
[2024-06-10 12:11] VITALS: BMI 30.6
[2024-06-16] VITALS (7 sets, daily range): BP systolic 112–154; BP diastolic 55–67; PULSE 52–77; RESP 11–22; TEMP 36.1–36.2; O2SAT 98–100
--- NOTE | ~2024-06-16 | XR_ITS ---
EXAMINATION: XR ERCP DATE: 06/16/2024 15:35 INDICATION: Choledocholithiasis TECHNIQUE: 5 spot fluoroscopic images of the right upper quadrant were obtained during endoscopic ret rograde cholangiopancreatography (ERCP). Fluoroscopy exposure time was 564 seconds. COMPARISON: MRI 05/15/2024 FINDINGS: The endoscope is in the second portion the duodenum. There is contrast opacification of the pancreatic duct. IMPRESSION: 1. Contrast opacification of the pancreatic duct, which is normal in caliber. Please refer to the ERC P procedure note for additional details. Reviewed, dictated and finalized at location A. 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 Contrast opacification of the pancreatic duct, which is normal in caliber. P lease refer to the ERCP procedure note for additional details.
[2024-06-16] MEDS: methylPREDNISolone SOD SUCC 40 MG VIAL IV PUSH (09:35)
[2024-06-16] MEDS: LACTATED RINGERS 1,000 ML 150 ML IV CONT (09:37)
[2024-06-16 10:17] LABS: Glucose Point of Care 110 mg/dl (65-105)
--- NOTE | 2024-06-16 11:17 | ECG_ITS ---
Test Date: 2024-06-16 11:31:17 Measurements Intervals [place] Rate: 57 P: 31 OR: 182 QRS: -9 QRSD: 91 T: 17 QT: 396 QTc: 387 Interpretive Statements SINUS BRADYCARDIA No previous ECG available for comparison Electronically Signed On 06-16-2024 15:00:17 TANK WASHER by Alix Hardin M.D.
[2024-06-16] MEDS: diphenhydrAMINE HCl INJ 50 MG/ML VIAL IV PUSH (12:33)
--- NOTE | 2024-06-16 13:03 | P.PNAN_ITS ---
Anes - Initial Pre Proc Eval Procedure: Operation Date: 06/16/24 11:30 Proposed Procedures p Endoscopic Retro Cholangiopancreatogram - Boy Lara MD Date/Time: 06/16/24 13:03 Surgeon: Boy Lara MD Pre Op Diagnosis: GERD,Nausea w/vomiting,calculus of annita duct Patient Data Age: 74 Gender: F Height: 1.63 m Weight: 81.5 kg Last Vital Signs Temp 36.1 C L 06/16/24 10:18 Pulse 59 L 06/16/24 10:18 Resp 19 06/16/24 10:18 BP 112/57 L 06/16/24 10:18 Pulse Ox 100 06/16/24 10:18 O2 Del Method Room Air 06/16/24 10:18 Allergies Allergy/AdvReac Type Severity Reaction Status Date / Time codeine Allergy Intermediate Other Verified 06/10/24 12:06 iohexol (From Omnipaque) Allergy Intermediate Flushing Verified 06/10/24 15:32 lisinopril AdvReac Intermediate Cough Verified 06/10/24 12:06 Home Medications ?Medication ?Instructions ?Recorded ?Confirmed ?Type aspirin 81 mg tablet,delayed 81 mg PO DAILY 01/30/21 06/16/24 History release inulin 1.5 gram chewable tablet 1.5 g PO DAILY 09/17/22 06/16/24 History (Children's Fiber Select Gummies) dapagliflozin propanediol 5 mg 5 mg PO DAILY #30 tabs 04/02/23 06/16/24 Rx tablet (Farxiga) simvastatin 20 mg tablet 20 mg PO QHS #90 tabs 11/25/23 06/16/24 Rx blood sugar diagnostic (Advanced See Rx Instructions .Route .COMPLEX 11/26/23 06/10/24 History Glucose Meter Test Strips) lancets 30 gauge (Ultra Thin See Rx Instructions .Route 11/26/23 06/10/24 History Lancets) .COMPLEX E11.9 cholecalciferol (vitamin D3) 50 50 mcg PO DAILY #90 tabs 04/01/24 06/16/24 Rx mcg (2,000 unit) tablet benzonatate 100 mg capsule 100 mg PO TID PRN cough #30 caps 05/11/24 06/10/24 Rx losartan 100 mg tablet 100 mg PO DAILY #90 tabs 05/11/24 06/16/24 Rx fluticasone propionate 50 2 spray intranasal DAILY PRN Nasal 06/10/24 06/10/24 History mcg/actuation nasal Congestion spray,suspension (Flonase Allergy Relief) semaglutide 3 mg tablet (Rybelsus) 3 mg PO DAILY 06/10/24 06/10/24 History Laboratory Tests 06/16/24 10:15 POC Capillary Glucose 110 H mg/dl (65-105) Patient hx anesthesia problems: none Family hx anesthesia problems: none Results Review: All pre-operative results and documents have been reviewed as part of the pre-operative evaluation. [facility] Past Medical History Medical History Gallbladder disorder Hypertension Arthritis Chronic kidney disease, stage 3b Postmenopausal CKD (chronic kidney disease) stage 3, GFR 30-59 ml/min Cataract of both eyes Body mass index (BMI) greater than 35 (06/19/18) Family history of colon cancer in mother Colon polyp SBO (small bowel obstruction) (~07/2022) managed conservatively Vitamin D deficiency History of deep venous thrombosis (DVT) of distal vein of left lower extremity Essential (primary) hypertension GERD without esophagitis Dyslipidemia Type 2 diabetes mellitus without complication, without long-term current use of insulin Surgical History Surgical History History of toe surgery (~2004) 2004 - Right foot 5th toe surgery History of hysterectomy (~1984) 1984 partial hysterectomy History of superficial parotidectomy (~1999) 1999 - benign tumor Hx of lumbosacral spine surgery (~1994) 1994 Family History Family History Grandparent Diabetes mellitus Sibling Hypertension Father Cerebrovascular accident Mother Carcinoma of colon Other Family history of coronary artery disease Social History Social History Smoking status: Never smoker Second hand tobacco smoke exposure: No Alcohol intake: current Alcohol use details: occasionnally Substance use: never Substance use type: does not use Do You Feel Safe in your Home?: Yes Lack of Transportation: No Lack of Food: Never True Current Housing: I Have Housing Concerned About Future Housing: No Difficulty Paying Gas/Electric Bills: No Difficulty Paying for Meds: No Currently Unemployed: No Education: Don't Know Difficulty w/ Childcare or Family Care: No Living arrangements: with family Occupation/Education: retired Gender identity (if verbalized by the patient): Female Sexual Orientation (if Verbalized by the Patient): Straight or Heterosexual Spiritual care concerns: No Agree to blood products: Yes Anes - Eval Final PreProcedure Day of Procedure 06/16/24 13:03 Patient weight: obese Heart: regular rate and rhythm Lungs: clear to auscultation Airway: Mallampati scale class III Neurological: alert and oriented Last oral intake: >/= 8 hours ASA classification: III Emergent: no Anesthetic plan: proceed Anesthesia type and monitoring: general ETT and standard monitoring Results Review: All pre-operative results and documents have been reviewed as part of the pre- operative evaluation. Informed Consent: The patient's anesthetic plan and its attendant risks and benefits were discussed with the patient/family/POA. Questions were solicited and answers provided to the satisfaction of the patient/family/POA.
--- NOTE | 2024-06-16 13:11 | WPDHPUPDATE1 ---
History and Physical Update Update Date/Time: 06/16/24 13:11 History and Physical has been reviewed, including an updated exam of the patient. There are NO changes in the patient's condition. Risks, benefits, and alternatives have been discussed and questions answered. Patient agrees to proceed with procedure.
[2024-06-16] MEDS: INDOMETHACIN 50 MG SUPP.RECT RECTAL (13:25)
== END 2024-06-16 16:46 | disposition home or self-care (01) ==
PROVIDERS: PCP Family Medicine; Referring Provider Nurse Practitioner Family; Visit Provider Internal Medicine Gastroenterology
PROC: (CPT 43260; principal; 2024-06-16 11:30)
DX: K80.50 Calculus of bile duct without cholangitis or cholecystitis without obstruction (principal); K21.9 Gastro-esophageal reflux disease without esophagitis; Q45.3 Other congenital malformations of pancreas and pancreatic duct; M19.90 Unspecified osteoarthritis, unspecified site; E11.22 Type 2 diabetes mellitus with diabetic chronic kidney disease; I12.9 Hypertensive chronic kidney disease with stage 1 through stage 4 chronic kidney disease, or unspecified chronic kidney disease; N18.32 Chronic kidney disease, stage 3b; E78.5 Hyperlipidemia, unspecified; K82.9 Disease of gallbladder, unspecified; E55.9 Vitamin D deficiency, unspecified; E66.9 Obesity, unspecified; Z68.30 Body mass index [BMI] 30.0-30.9, adult; Z79.82 Long term (current) use of aspirin; Z79.84 Long term (current) use of oral hypoglycemic drugs; Z98.890 Other specified postprocedural states; Z98.1 Arthrodesis status; Z87.19 Personal history of other diseases of the digestive system; Z86.0100 Personal history of colon polyps, unspecified; Z86.718 Personal history of other venous thrombosis and embolism; Z80.0 Family history of malignant neoplasm of digestive organs; Z82.49 Family history of ischemic heart disease and other diseases of the circulatory system
CPT/HCPCS: 43274; 74329; 82948; 93005; A9270; C1876; C2625; J0330; J1200; J2704; J2919; J7120; Q9966

== ENCOUNTER 2024-07-24 15:47 | Outpatient (CLI) | payer MEDICARE, SELFPAY ==
--- NOTE | ~2024-07-24 | MM_ITS ---
EXAMINATION: MM screening elvira BI w jennifer HISTORY: Screening TECHNIQUE: Craniocaudal and mediolateral oblique 3-D tomosynthesis images were obtained and synthetic 2-D images were generated. CAD analysis was submitted and interpreted. COMPARISON: Comparison to multiple prior studies sequentially, with oldest reviewed study dated 05/09. BREAST PARENCHYMAL COMPOSITION: Not dense: There are scattered areas of fibroglandular density. FINDINGS: The left breast is stable without evidence for malignancy. There is a developing mass in th e upper outer quadrant of the right breast posteriorly, most likely a lymph node, although further as sessment recommended. IMPRESSION: 1. Enlarging mass upper outer quadrant of the right breast. 2. Additional mammographic views and possible breast ultrasound are recommended. BI-RADS Category 0: Incomplete: Needs additional imaging evaluation. Reviewed, dictated and finalized at location A. 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 Enlarging mass upper outer quadrant of the right breast. 2. Additional mammographic views and possible breast ultrasound are recommended . BI-RADS Category 0: Incomplete: Needs additional imaging evaluation.
== END 2024-07-24 15:48 | disposition home or self-care (01) ==
LOC: MICIMG 15:47
PROVIDERS: PCP Family Medicine; Visit Provider Obstetrics & Gynecology
DX: Z12.31 Encounter for screening mammogram for malignant neoplasm of breast (principal); R92.8 Other abnormal and inconclusive findings on diagnostic imaging of breast
CPT/HCPCS: 77063; 77067

== ENCOUNTER 2024-10-07 09:03 | Outpatient (CLI) | payer MEDICARE, SELFPAY ==
--- NOTE | ~2024-10-07 | NM_ITS ---
EXAMINATION: NM parathyroid imaging w spect DATE: 10/07/2024 15:20 INDICATION: Type 2 diabetes mellitus TECHNIQUE: 21.1 mCi Tc99m sestamibi (Cardiolite) was administered by intravenous route. Anterior imag es of the neck were obtained at 10 minutes and 3 hours. Additional delayed SPECT imaging was obtained with reconstructions in axial, sagittal and coronal planes. COMPARISON: None. FINDINGS/IMPRESSION: Asymmetric focus of persistent activity significantly higher than the background thyroid at the mid r ight thyroid lobe, best appreciated on the SPECT imaging which would be consistent with a parathyroid adenoma. Reviewed, dictated and finalized at location A.
--- NOTE | ~2024-10-07 | US_ITS ---
EXAMINATION: US thyroid DATE: 10/07/2024 09:43 INDICATION: Type 2 diabetes mellitus without complications TECHNIQUE: Multiple ultrasound images of the thyroid were obtained. COMPARISON: None. FINDINGS: The right thyroid lobe measures 5.6 x 1.5 x 2.4 cm. The left thyroid lobe measures 4.5 x 1.1 x 1.7 c m cm. There are a couple wider than tall solid hypoechoic nodule with smooth margins and without ech ogenic foci in the right thyroid lobe. (TI-RADS 4, moderately suspicious , FNA if >=1.5 cm, annual fo llowup is >=1 cm), the larger at the inferior right thyroid measuring 2.3 cm in maximal diameter and the smaller in the mid right thyroid measuring 1.3 cm. There are three TI-RADS 1 completely anechoic cystic nodules, one in the right thyroid measuring 4 mm and two in the left thyroid each measuring 5 mm. IMPRESSION: 1. Multinodular goiter. Recommend ultrasound-guided biopsy of the largest 2.3 cm TI-RADS 4 right thyr oid nodule. Reviewed, dictated and finalized at location A. IMPRESSION: 1. Multinodular goiter. Recommend ultrasound-guided biopsy of the largest 2.3 c m TI-RADS 4 right thyroid nodule.
--- OUTSIDE RECORDS SUMMARY | 2024-10-07 09:34 | XMS_ITS | Clinical Summary ---
Author Organization [facility] [employer] Address [address] [place] [address] Care Team Providers Care Stenographer Print Shop Name Role Phone Karime Curiel MD Unavailable Shadi Augustin MD Primary Care Provider Source Comments [facility] [employer],non-owned Affiliates and Associated Physician Practices is amultiple site organization consisting of ambulatory clinics and hospital sitesin [place], [place], [place] and [place]. This disclosure is being madepursuant to the Care Everywhere program and may not contain all information available regarding this patient. Last updated 18.[facility] [employer] Allergies Active Allergy Reactions Criticality Noted Date Comments Codeine 05/24/2010 Memory loss Iodine 05/24/2010 Flushed and vomiting Lisinopril Cough 07/10/2024 Medications * Be aware that medications may not be up to date on this document. Alwaysverify current medications with the patient. Medication Sig Dispensed Refills Start Date End Date Status aspirin EC (ECOTRIN) 81 MG tablet Take 1 (one) tablet by mouth once daily Active qeo-nmi-kxon-nasulf-n a asc-c, MOVIPREP, (MOVIPREP) 100 G solutionIndications:H x of colonic polyps As instructed per written directions 1 Each 0 05/07/2013 Active bisACODYL EC (DULCOLAX) 5 MG tabletIndications:Hx of colonic polyps As instructed per written directions 2 Tab 0 05/07/2013 Active dapagliflozin propanediol (Farxiga) 5 MG tabletIndications:Typ e 2 Diabetes Mellitus Take 1 (one) tablet by mouth every morning Reasons: Type 2 Diabetes Active losartan (Cozaar) 100 MG tablet Take 1 (one) tablet by mouth once daily Active simvastatin (Zocor) 20 MG tablet Take 1 (one) tablet by mouth at bedtime Active vitamin D3 (Cholecalciferol) 10 MCG (400 UNIT) tablet Take 1 (one) tablet by mouth once daily Active FIBER GUMMIES PO Active semaglutide (Rybelsus) 3 MG tablet Take 3 mg by mouth once daily Take with a sip of water (< 4 oz) at least 30 minutes before any food, drink, or other meds. Active Active Problems Problem Noted Date Diagnosed Date Diverticulosis 05/27/2013 Encounters Date Type Department Care Team Description 09/28/2024 Orders Only [facility] - GI [address] [place] [address] Corky Rousseau RN Choledocholithiasis 07/17/2024 11:51 AM RECEIVING WEIGHER Anesthesia Event [facility] [address] [place] [address] Asha Antoine MD [place], Nutressa Dianne, CASH ON DELIVERY CLERK-SURVEILLANCE MANAGER 07/17/2024 11:00 AM [facility] - 07/17/2024 12:00 PM RECEIVING WEIGHER Surgery [facility] [address] [place] [address] Eros Kelley MD ENDOSCOPIC RETROGRADE CHOLANGIOPANCREATOGRAPHY (ERCP) 07/17/2024 10:20 AM RECEIVING WEIGHER - 07/17/2024 3:31 PM RECEIVING WEIGHER Hospital Encounter [facility] [address] [place] [address] Eros Kelley MD Surgery General Discharge Disposition: Home or Self Care 07/17/2024 Travel 07/16/2024 Telephone [facility] [address] [place] [address] Rosio Torrez RN Reminder Call 07/10/2024 Travel from Last 3 Months Family History Medical History Relation Name Comments Heart Failure Father Stroke Father Cancer Mother colon Relation Name Status Comments Brother 1 Alive Brother 2 Alive Father Mother Sister Alive Social History Tobacco Use Types Packs/Day Years Used Date Smoking Tobacco: Never Smokeless Tobacco: Never Alcohol Use Standard Drinks/Week Comments No 0 (1 standard drink = 0.6 oz pur e alcohol) Sex and Gender Information Value Date Recorded Sex Assigned at Not on file Gender Identity Not on file Sexual Orientation Not on file Last Filed Vital Signs Vital Sign Reading Time Taken Comments Blood Pressure 154/68 07/17/2024 1:30 PM RECEIVING WEIGHER Pulse 52 07/17/2024 1:30 PM RECEIVING WEIGHER Temperature 36.4 C (97.6 F) 07/17/2024 1:15 PM RECEIVING WEIGHER Respiratory Rate 12 07/17/2024 1:30 PM RECEIVING WEIGHER Oxygen Saturation 100% 07/17/2024 1:30 PM RECEIVING WEIGHER Inhaled Oxygen Concentration - - Weight 85.5 kg (188 lb 9.6 oz) 07/17/2024 11:00 AM RECEIVING WEIGHER Height 162.6 cm (5' 4 ) 07/17/2024 11:00 AM RECEIVING WEIGHER Body Mass Index 32.37 07/17/2024 11:00 AM RECEIVING WEIGHER Plan of Treatment Upcoming Encounters Date Type Department Care Team (Late st Contact Info) Description 10/21/2024 2:30 PM CDT Office Visit [facility] - General Surgery [address] [place] [phone] Karin Cardenas MD [address] [place] [address] Health Maintenance Due Date Last Done Comments BONE DENSITY TESTING 1950 COLOGUARD (AGES 45-75) - COLON CA SCREENING 1950 CT COLONOGRAPHY - COLON CA SCREENING 1950 FIT - COLON CA SCREENING 1950 FLEX SIG - COLON CA SCREENING 1950 MAMMOGRAM 1950 MEDICARE AWV 12 MONTHS 1950 HEPATITIS C SCREENING 04/16/1969 DTAP/TDAP/TD VACCINES (1 - Tdap) 1970 PNEUMOCOCCAL VACCINE 50+ (1 of 1 - PCV) 2001 ZOSTER VACCINE (1 of 2) 2001 Respiratory Syncytial Virus (RSV) Vaccine Pt: or over 60 yrs (1 - Risk 60-74 years 1-dose series) 2011 COVID-19 VACCINE ( season) 2024 05/05/2021 COLON MONITORING 04/03/2024 04/03/2019, , 05/27/2013, Additional history exists Colorectal Cancer Screening 04/03/2024 DEPRESSION SCREENING 07/08/2024 INFLUENZA VACCINE (Season Ended) 2025 SCREENING FOR DIABETES 07/17/2027 07/17/2024, 2018 COLONOSCOPY - COLON CA SCREENING 04/03/2029 04/03/2019, 05/27/2013, 05/27/2013 HEPATITIS B VACCINE Aged Out No longe r eligible based on patient's age to complete this topic HIB VACCINE Aged Out No longer eligi ble based on patient's age to complete this topic HPV VACCINE Aged Out No longer eligi ble based on patient's age to complete this topic MENINGOCOCCAL (Group B) VACCINE SHARED DECISION-MAKING Aged Out No longer eligible based on patient's age to complete this topic MENINGOCOCCAL GROUPS A/C/Y/W VACCINE Aged Out No longer eligible based on patient's age to complete this topic Procedures Procedure Name Priority Date/Time Associated Diagnosis Comments ENDOTRACHEAL TUBE NOTE Routine 07/17/2024 12:07 PM RECEIVING WEIGHER NM ERCP DX W BRUSH WASH WHEN PERF 07/17/2024 11:44 AM RECEIVING WEIGHER Choledocholithiasis ERCP Routine 07/17/2024 11:40 AM RECEIVING WEIGHER GLUCOSE - POINT OF CARE Routine 07/17/2024 11:10 AM RECEIVING WEIGHER ENDOSCOPY, COLON, SCREENING Routine 05/27/2013 8:41 AM RECEIVING WEIGHER from Last 3 Months or Most Recently Relevant to Health Maintenance Results * ETT LINE PERFORMABLE (07/17/2024 12:07 PM RECEIVING WEIGHER) Narrative Chepe Redd CAA - 07/17/2024 12:07 PM RECEIVING WEIGHER Chepe Redd Anes Asst 07/17/2024 12:08 PM Endotracheal Tube Placement: Patient Location: OR. Intubation Event Date/Time: 07/17/2024 11:56 AM Procedure: intubation (14002) Procedure Section: Sedation: under general anesthesia. Indications for Airway Management: anesthesia Procedure pretreatments used? No Induction: standard IV Patient Position: sniffing and supine Mask Ventilation: easy. Blade Type: Rothman Blade Size: 2 Laryngoscopy View: grade 2 (partial cords) (2b) Intubation Adjuncts: stylet Tube: endotracheal tube Placement: oral Tube type: cuff - inflated Tube Size (MM): 7 Depth of Insertion (CM): 23 Measured From: teeth Cuff volume (mL): 10 Cuff Inflated With: air Number of Attempts: 1. Placement Verified By: direct visualization, bilateral breath sounds, chest auscultation and CO2 detector CXR Findings: ETT in proper place. Tube secured with: ETT montes and adhesive tape. Dentition unchanged? Yes Difficult Airway? No. Procedure Start Time: 07/17/2024 11:56 AM. Procedure End Time: 07/17/2024 11:57 AM. Procedure Total Time: 1 minutes. Staff Section Anesthesia Provider: Asha Antoine MD, Performed the procedure Provider #1: Chepe Redd Anes Asst. Asha Antoine MD GENERAL ANESTHESIA O RDERABLES * ERCP (07/17/2024 11:40 AM RECEIVING WEIGHER) Report Endoscopy POC Endoscopy Department Report _ Patient Name: Marbella Rivero Procedure Date: 07/17/2024 11:40 AM Date of : 1950 Classification: Outpatient Gender: Female Ethnicity: Not or Race: Black or _ Providers: Eros Matthews MD Referring MD: Bogdan Kern MD Procedure: ERCP Indications: Common bile duct stone(s) Medications: Monitored Anesthesia Care. See the Anesthesia note for documentation of the administered medications. IVFs w/ LR, Indomethacin 100 mg NM. Patient Profile: 74F presents as direct access referral for ERCP for further mgmt of reported choledocholithiasis (MRI). Patient underwent failed ERCP for biliary purposes at OSH 06/2024, a pancreatic sphincterotomy and PD stent were placed at the time. Description of Procedure: After obtaining informed consent, the scope was passed under direct vision. Throughout the procedure, the patient's blood pressure, pulse, and oxygen saturations were monitored continuously. The duodenoscope was introduced through the mouth, and advanced to the duodenum and used to inject contrast into the bile duct. The ERCP was accomplished without difficulty. The patient tolerated the procedure well. Findings: The barrel assembly inspector film was normal. The esophagus was successfully intubated under direct vision. The scope was advanced to a normal major papilla in the descending duodenum without detailed examination of the upper GI tract given the use of a sideviewing duodenoscope. The previously placed pancreatic duct stent had spontaneously migrated out and passed. A short 0.025 inch Visiglide guidewire was easily passed into the biliary tree on first attempt. A short-nosed traction sphincterotome cannula was passed over the guidewire and the bile duct was then deeply cannulated. Contrast was injected. I personally interpreted the bile duct images. Ductal flow of contrast was adequate. Image quality was adequate. Contrast extended to the hepatic ducts. The common bile duct contained several stones. A biliary sphincterotomy was made with a traction (standard) sphincterotome using ERBE electrocautery. There was no post-sphincterotomy bleeding. The biliary tree was swept with an adjustable extraction balloon cannula starting at the bifurcation. Several stones were removed. No stones remained. Preparations were made for cholangiography using the balloon occlusion technique. The balloon-tipped catheter was advanced to the hepatic duct bifurcation and inflated. Contrast was then injected into the biliary tree and opacified the left and right hepatic ducts and main intrahepatic branches. There were no residual filling defects in the main bile duct. Spontaneous outflow of bile and contrast were adequate. There was no indication for biliary stent placement. Estimated Blood Loss: Estimated blood loss was minimal. Complications: No immediate complications. Impression: - Choledocholithiasis treated via biliary sphincterotomy and balloon extraction with complete main bile duct clearance. Moderate Sedation: GA. Recommendation: - Monitor for fevers, bleeding, pain, jaundice. - Start clear liquid diet, and if pain free this evening advance as tolerated. - Hold any anticoagulant medications ( blood thinners ) for 3 days. Resume rest of home medications today. - Avoid NSAID type medications (ex. Ibuprofen, Naproxen, Diclofenac, Celecoxib, Meloxicam, etc) for 2 weeks. - Follow-up with Surgery as planned regarding needed cholecystectomy. - The potential complications and concerning symptoms/findings, including but not limited to early or delayed fevers, infection, pain, bleeding, perforation, and pancreatitis were discussed with the patient/caregiver. Emergency contact information was provided. Attending Participation: I personally performed the entire procedure. Procedure Code(s): --- Professional --- 29386, Endoscopic retrograde cholangiopancreatography (ERCP); with removal of calculi/debris from biliary/pancreatic duct(s) 03186, Endoscopic retrograde cholangiopancreatography (ERCP); with sphincterotomy/papillotom y 37654, Endoscopic catheterization of the biliary ductal system, radiological supervision and interpretation Diagnosis Code(s): --- Professional --- K80.50, Calculus of bile duct without cholangitis or cholecystitis without obstruction CPT copyright 2021 [employer]. All rights reserved. The codes documented in this report are preliminary and upon actuary manager review may be revised to meet current compliance requirements. Eros Matthews MD 07/17/2024 12:29:18 PM Note Initiated On: 07/17/2024 11:40 AM Number of Addenda: [address] [id number] [facility] 07/17/2024 11:4 0 AM RECEIVING WEIGHER Eros Matthews MD GI PROCEDURE ORDERABLES [facility] * (ABNORMAL) GLUCOSE - POINT OF CARE (07/17/2024 11:10 AM RECEIVING WEIGHER) Glucose WB/POC 105(H) 70 - 99 mg/dL 07/17/2024 2:06 PM RECEIVING WEIGHER [facility] Specimen Type Venous 07/17/2024 2:06 PM RECEIVING WEIGHER [facility] Blood BLOOD SPECIMEN / Unknown 07/17/2024 11:10 AM RECEIVING WEIGHER 07/17/2024 2:06 PM RECEIVING WEIGHER Eros Matthews MD LAB - POINT OF CARE ORDERABLES [facility] [address] [place] [address], [facility] [phone] * ENDOSCOPY, COLON, SCREENING (05/27/2013 8:41 AM RECEIVING WEIGHER) Report Endoscopy POC _ Patient Name: Marbella Rivero Procedure Date: 05/27/2013 8:41 AM Date of : 1950 Admit Type: Outpatient Gender: Female Age: 63 Attending MD: Jaime Lugo MD _ Procedure: Colonoscopy Indications: Personal history of colonic polyps Providers: Jaime Lugo MD (Doctor), Lynda Kramer RN, Denise Talamantes, Display Fabricator Referring MD: Parviz Hale (Referring MD) Medicines: Monitored Anesthesia Care Complications: No immediate complications. _ Procedure: Pre-Anesthesia Assessment: - ASA Grade Assessment: II - A patient with mild systemic disease. - Airway Examination: Mallampati Class I (tonsillar pillars visualized). After I obtained informed consent, the scope was passed under direct vision. Throughout the procedure, the patient's blood pressure, pulse, and oxygen saturations were monitored continuously. The Colonoscope was introduced through the anus and advanced to the cecum, identified by appendiceal orifice & ileocecal valve. The colonoscopy was performed without difficulty. The patient tolerated the procedure well. The quality of the bowel preparation was good. Impression: - Diverticulosis. Findings: Diverticula were found in the colon. _ Recommendation: - Repeat colonoscopy in 5-10 years for surveillance. Procedure Code(s): --- Professional --- 22034, Colonoscopy, flexible, proximal to splenic flexure; diagnostic, with or without collection of specimen(s) by brushing or washing, with or without colon decompression (separate procedure) Diagnosis Code(s): --- Professional --- V12.72, Personal history of colonic polyps 562.10, Diverticulosis of colon (without mention of hemorrhage) CPT (R) 2012 [employer]. All Rights Reserved. The codes documented in this report are preliminary and upon actuary manager review may be revised to meet current compliance requirements. Jaime Lugo MD 05/27/2013 9:11 AM This report has been signed electronically. Number of Addenda: 0 Note Initiated On: 05/27/2013 8:41 AM [facility] 05/27/2013 8:41 AM RECEIVING WEIGHER Narrative [facility] - 05/27/2013 10:15 AM RECEIVING WEIGHER Procedure Note Jaime Lugo MD - 05/27/2013 10:15 AM CST Jaime Lugo MD GI PROCEDURE ORDERAB LES [facility] from Last 3 Months or Most Recently Relevant to Health Maintenance Care Teams Stenographer Print Shop Relationship Specialty Start Date End Date Shadi Augustin MD [address] [place] [address] PCP - General Family Medicine 02/09/19 Karime Curiel MD Mva Reactor Operator Head Obstetrics and Gynecology 12/29/13
--- OUTSIDE RECORDS SUMMARY | 2024-10-07 09:34 | XMS_ITS | Clinical Summary ---
Author Organization [facility] [employer] Address [address] [place] [id number] Phone Care Team Providers Care Fishing Vessel Deckhand Name Role Phone Shadi Augustin MD Primary Care Provider Allergies Active Allergy Reactions Criticality Noted Date Comments Codeine 05/24/2010 Memory loss Iodine 05/24/2010 Flushed and vomiting Medications Medication Sig Dispensed Refills Start Date End Date Status aspirin (ST DARRICK) 81 MG EC tablet Take 81 mg by mouth daily Active lisinopril-hydroCHLOR Othiazide (PRINZIDE) 10-12.5 MG per tablet Take 1 tablet by mouth daily Active Cholecalciferol (Vitamin D-3) 25 MCG (1000 UT) capsule Take by mouth Acti ve metFORMIN (GLUCOPHAGE) 500 MG tablet Take 1,000 mg by mouth every night Active simvastatin (ZOCOR) 20 MG tablet Take 20 mg by mouth every night Active meclizine (ANTIVERT) 25 MG tablet TAKE 1 TABLET BY MOUTH THREE TIMES DAILY NEEDED FOR DIZZINESS 06/08/2021 Active metFORMIN XR 500 MG 24 hr tablet Take 1,000 mg by mouth 1 (one) time each day in the evening 09/01/2021 Active Active Problems Problem Noted Date Diagnosed Date Vitamin D deficiency 04/02/2021 Osteoarthritis 04/02/2021 Hypertension 04/02/2021 Hyperlipidemia 04/02/2021 Gastroesophageal reflux disease 04/02/2021 Diabetes mellitus 04/02/2021 Chronic kidney disease 04/02/2021 Diverticular disease 05/27/2013 Family History Medical History Relation Comments Stroke Father Colon cancer Mother Relation Status Comments Father Mother Social History Tobacco Use Types Packs/Day Years Used Date Smoking Tobacco: Never Smokeless Tobacco: Never Alcohol Use Standard Drinks/Week Comments Never 0 (1 standard drink = 0.6 oz pur e alcohol) Sex and Gender Information Value Date Recorded Sex Assigned at Not on file Gender Identity Not on file Sexual Orientation Not on file Last Filed Vital Signs Vital Sign Reading Time Taken Comments Blood Pressure 134/72 03/22/2022 11:20 AM CDT Pulse - - Temperature 36.3 C (97.3 F) 03/22/2022 11:20 AM CDT Respiratory Rate 18 03/22/2022 11:20 AM CDT Oxygen Saturation - - Inhaled Oxygen Concentration - - Weight 91 kg (200 lb 9.6 oz) 03/22/2022 11:20 AM CDT Height 162.6 cm (5' 4 ) 03/22/2022 11:20 AM CDT Body Mass Index 34.43 03/22/2022 11:20 AM CDT Plan of Treatment Health Maintenance Due Date Last Done Comments Pneumococcal PPSV23/PCV13 65 + Years / Low and Medium Risk (1 of 4 - PCV) 2016 COVID-19 Vaccine ( season) 2024 Influenza Vaccine (#1) 2024 Care Teams Fishing Vessel Deckhand Relationship Specialty Start Date End Date Shadi Augustin MD [address] [place] [address] PCP - General Internal Medicine 03/17/21
--- OUTSIDE RECORDS SUMMARY | 2024-10-07 09:34 | XMS_ITS | Clinical Summary ---
Author Organization [facility] Care Team Providers Care Personnel Monitor Name Role Phone Unavailable Primary Care Provider Unavailabl e Immunizations Immunization Administration Dates Next Due Covid-19, Mrna, Lnp-s, Pf, 30 Mcg/0.3 Ml Dose (P fizer) 05/05/2021 Social History Tobacco Use Types Packs/Day Years Used Date Smoking Tobacco: Never Assessed Comments Unknown Sex and Gender Information Value Date Recorded Sex Assigned at Not on file Legal Sex Female 9:15 PM CDT Gender Identity Not on file Sexual Orientation Not on file Plan of Treatment Health Maintenance Due Date Last Done Comments Hepatitis C Virus (HCV) Screening 1950 Colonoscopy 1996 Colorectal Cancer Screening 1996 Cologuard 2001 Immunochemical Fecal Occult Blood 2001 Influenza Immunization (#1) 2024 1010/2020, 03/25/2020, 05/05/2019, Additional history exists SARS-COV-2 Immunization ( season) 2024 05/05/2021, 09/23/2020, 09/02/2020 Respiratory Syncytial Virus (RSV) Immunization (Adult) (1 - 1-dose 75+ series) 2026 DTaP/Tdap/Td Immunization Discontinued 10/10/2011 TdaP Immunization Completed 10/10/2011 Pneumococcal Immunization (50+ years) Completed 07/07/2018, 11/02/2016 Zoster Immunization Completed 04/25/2021, Hepatitis B Immunization Aged Out No longer eligible based on patient's age to complete this topic Meningococcal Immunization (ACWY) Aged Out No longer eligible based on patient's age to complete this topic Rotavirus Immunization Aged Out No lo nger eligible based on patient's age to complete this topic
--- OUTSIDE RECORDS SUMMARY | 2024-10-07 09:34 | XMS_ITS | Clinical Summary ---
Author Organization [facility] Address [address] [place] [address] Care Team Providers Care Double Reamer Operator Name Role Phone Shadi Augustin MD Primary Care Provider Allergies Active Allergy Reactions Criticality Noted Date Comments Codeine Unknown 05/24/2010 Memory loss Memory loss Iodine Nausea and Vomiting Low 05/24/2010 Flushed and vomiting Flushed and vomiting Tylenol-Codeine #2 Unknown 08/03/2022 Medications aspirin (ECOTRIN EC) 81 mg Tablet, Delayed Release (E.C.) Take 81 mg by mouth daily. Active cholecalciferol , Vitamin D3, (VITAMIN D3) 25 mcg (1,000 unit) Capsule Take by mouth. Active lisinopril-hydr oCHLOROthiazide (ZESTORETIC) 20-12.5 mg tablet Take 1 Tablet by mouth daily. 06/29/2022 Active metFORMIN (GLUCOPHAGE XR) 500 mg Extended Release 24 hour tablet TAKE 2 TABLETS BY MOUTH EVERY EVENING 05/09/2022 Active simvastatin (ZOCOR) 20 mg tablet TAKE 1 TABLET BY MOUTH EVERY DAY AT BEDTIME 07/27/2022 Active ascorbic acid, vitamin C, (Vitamin C) 500 mg tablet Active ferrous sulfate 325 mg (65 mg iron) tablet Take 325 mg by mouth daily. Active Farxiga 5 mg Tablet Take 5 mg by mouth daily. 01/10/2023 Active Active Problems No known active problems Family History Medical History Relation Name Comments No Known Problems Brother 1 No Known Problems Brother 2 Heart Attack Father Stroke Father Colon Cancer Mother Heart Attack Sister No Known Problems Son Relation Name Status Comments Brother 1 Alive Brother 2 Alive Father Mother Sister Son Alive Social History Tobacco Use Types Packs/Day Years Used Date Smoking Tobacco: Never Smokeless Tobacco: Never Tobacco Cessation:Counseling Given: Not Answered Alcohol Use Standard Drinks/Week Comments Never 0 (1 standard drink = 0.6 oz pur e alcohol) Comments Unknown Sex and Gender Information Value Date Recorded Sex Assigned at Not on file Legal Sex Female 9:38 AM BARREL CHARRER Gender Identity Not on file Sexual Orientation Not on file Last Filed Vital Signs Vital Sign Reading Time Taken Comments Blood Pressure 123/55 01/11/2023 2:04 PM CDT Pulse 77 01/11/2023 2:02 PM CDT Temperature 36.6 C (97.8 F) 01/11/2023 2:02 PM CDT Respiratory Rate 10 01/11/2023 2:02 PM CDT Oxygen Saturation 99% 01/11/2023 2:02 PM CDT Inhaled Oxygen Concentration - - Weight 87.1 kg (192 lb) 01/11/2023 2:02 PM CDT Height 162.6 cm (5' 4 ) 01/11/2023 2:02 PM CDT Body Mass Index 32.96 01/11/2023 2:02 PM CDT Plan of Treatment Health Maintenance Due Date Last Done Comments DIABETES ANNUAL FOOT EXAM 1969 DIABETES MICROALBUMIN ANNUAL SCREEN 1969 LDL CHOLESTEROL ANNUAL 1969 DTAP/TDAP/TD VACCINES (1 - Tdap) 1970 PNEUMOCOCCAL VACCINE 50+ YEA RS (1 of 2 - PCV) 1970 FIT-DNA Q 3 years 1996 FIT/FOBT Q 1 year 1996 Flex Sig/CT Colonography Q 5 years 1996 ZOSTER VACCINE (1 of 2) 2001 RSV VACCINE (60+ or ) (1 - Risk 60-74 years 1-dose series) 2011 BREAST CANCER SCREENING 12/22/2022 12/23/19 22, 11/30/2021, 11/30/2021, Additional history exists DIABETES HBA1C Q 6 MONTHS 02/04/20242023, 10/16/2022, 09/19/2022, Additional history exists INFLUENZA VACCINE (#1) 2024 DIABETES ANNUAL RETINAL EXAM 11/12/202402/2024, 11/14/2022, 11/02/2022, Additional history exists COLORECTAL SCREENING 09/12/2032 09/12/2022, 09/12/2022, 04/03/2019, Additional history exists Colorectal Cancer Screening 09/12/2032 OSTEOPOROSIS SCREENING Completed 07/20/2022, 2018 Insurance MEDICARE PART A AND B [employer] Care Teams Double Reamer Operator Relationship Specialty Start Date End Date Shadi Augustin MD [address] [place] [address] PCP - General Family Practice 08/03/22
== END 2024-10-07 09:04 | disposition home or self-care (01) ==
PROVIDERS: PCP Family Medicine; Visit Provider Internal Medicine
DX: E04.2 Nontoxic multinodular goiter (principal); E11.22 Type 2 diabetes mellitus with diabetic chronic kidney disease; E78.49 Other hyperlipidemia; I12.9 Hypertensive chronic kidney disease with stage 1 through stage 4 chronic kidney disease, or unspecified chronic kidney disease; E21.3 Hyperparathyroidism, unspecified; N18.9 Chronic kidney disease, unspecified
CPT/HCPCS: 76536; 78071; A9500

== ENCOUNTER 2024-10-31 16:11 | Emergency (ER) | payer MEDICARE, SELFPAY ==
--- NOTE | ~2024-10-31 | XR_ITS ---
XR elbow RT min 3V Ordering provider: Tangela Oneil APRN History: . elbow pain, nki . Comparison: None. FINDINGS: BONES: No dislocation. Small bony fragments are seen laterally opposite the joint space and lateral h umeral condyle which may be due to fractures or ossification of the ligament.. Follow-up advised.. JOINT SPACES: Osteoarthritic changes of the elbow joint. SOFT TISSUES: Unremarkable. No definite joint effusion. IMPRESSION: Ossification in the area of the lateral humeral condyle suggestive of ligamentous ossification or chi p fractures. Follow-up advised. Reviewed, dictated and finalized at location A. IMPRESSION: Ossification in the area of the lateral humeral condyle suggestive of ligamento us ossification or chip fractures. Follow-up advised.
[2024-10-31 16:19] VITALS: BP 161/74; PULSE 81; RESP 16; TEMP 36.1; O2SAT 99
--- NOTE | 2024-10-31 16:30 | ED.EXTPRO ---
HPI - Extremity Problem General Chief complaint: Extremity Problem,Nontraumatic Stated complaint: Right Arm Pain Time Seen by Provider: 10/31/24 16:20 Source: patient Mode of arrival: ambulatory Limitations: no limitations History of Present Illness HPI Narrative: Patient presents today complaining of pain and decreased range of motion to her right medial elbow x 1 week. Complains that her pain radiates into her forearm. She has been taking Tylenol for pain with some relief. Denies any numbness or tingling. Related Data Home Medications ?Medication ?Instructions ?Recorded ?Confirmed ?Last Taken ?Type aspirin 81 mg tablet,delayed 81 mg PO DAILY 01/30/21 07/21/24 06/15/24 History release inulin 1.5 gram chewable tablet 1.5 g PO DAILY 09/17/22 07/21/24 06/15/24 History (Children's Fiber Select Gummies) blood sugar diagnostic (Advanced See Rx Instructions .Route .COMPLEX 11/26/23 07/21/24 Unknown History Glucose Meter Test Strips) lancets 30 gauge (Ultra Thin See Rx Instructions .Route 11/26/23 07/21/24 Unknown History Lancets) .COMPLEX E11.9 semaglutide 3 mg tablet (Rybelsus) 3 mg PO DAILY 06/10/24 07/21/24 Unknown History Allergies Allergy/AdvReac Type Severity Reaction Status Date / Time codeine Allergy Intermediate Other Verified 10/01/24 09:51 iohexol (From Omnipaque) Allergy Intermediate Flushing Verified 10/01/24 09:51 lisinopril AdvReac Intermediate Cough Verified 10/01/24 09:51 metformin AdvReac Mild Diarrhea Verified 10/01/24 12:04 Review of Systems Review of Systems: CONSTITUTIONAL: Denies body aches, fever, chillsEYES: Denies visual changes ENT: Denies rhinorrhea, congestion CARDIOVASCULAR: Denies chest pain, palpitations, or edema. RESPIRATORY: Denies cough or dyspnea. SKIN: Denies rash, itching, or wounds. MUSCULOSKELETAL: reports right elbow pain and decreased range of motion. NEUROLOGIC: Denies headache, numbness, tingling, or weakness. All systems reviewed & are unremarkable except as noted in HPI and below PMFSH Past Medical History Medical History (Updated 11/01/24 @ 00:00 by Background Daemon) Choledocholithiasis (~06/2024) Hypertension Arthritis Chronic kidney disease, stage 3b Postmenopausal Cataract of both eyes Body mass index (BMI) greater than 35 (06/19/18) Family history of colon cancer in mother Colon polyp SBO (small bowel obstruction) (~07/2022) managed conservatively Vitamin D deficiency History of deep venous thrombosis (DVT) of distal vein of left lower extremity 1990s Essential (primary) hypertension GERD without esophagitis Dyslipidemia Type 2 diabetes mellitus without complication, without long-term current use of insulin Surgical History Surgical History (Updated 10/01/24 @ 12:06 by Channing Augustin MD) History of biliary stent insertion (~07/2024) / History of ERCP (~06/2024) History of toe surgery (~2004) 2004 - Right foot 5th toe surgery History of hysterectomy (~1984) 1984 partial hysterectomy History of superficial parotidectomy (~1999) 1999 - benign tumor Hx of lumbosacral spine surgery (~1994) 1994 Family History Family History Grandparent Diabetes mellitus Sibling Hypertension Father Cerebrovascular accident Mother Carcinoma of colon Other Family history of coronary artery disease Social History Social History Smoking status: Never smoker Second hand tobacco smoke exposure: No Alcohol intake: current Alcohol use details: occasionnally Substance use: never Substance use type: does not use Do You Feel Safe in your Home?: Yes Lack of Transportation: No Lack of Food: Never True Current Housing: I Have Housing Concerned About Future Housing: No Difficulty Paying Gas/Electric Bills: No Difficulty Paying for Meds: No Currently Unemployed: No Education: Don't Know Difficulty w/ Childcare or Family Care: No Living arrangements: with family Occupation/Education: retired Gender identity (if verbalized by the patient): Female Sexual Orientation (if Verbalized by the Patient): Straight or Heterosexual Spiritual care concerns: No Agree to blood products: Yes Comments At time of signature, I have reviewed and agree with nursing past medical, surgical, social and family history unless otherwise noted. Please see nursing chart for further information. There is no relevant family history pertinent to the presenting complaint. Exam Narrative: MUSCULOSKELETAL EXAM GENERAL: Well-appearing, well-nourished, and in no acute distress. HEAD: Normocephalic, atraumatic. NECK: Supple. CHEST: Speaks in full sentences. No respiratory distress. HEART: Regular rate and rhythm. Normal and equal peripheral pulses. EXTREMITIES: Right elbow has decreased strength and normal sensation, can't tolerate full extension to 180? or full flexion of hand to shoulder, and endorses pain with movement. Edema noted with no ecchymosis, Point tenderness to medial epicondyle. No open wounds, skin tenting, or obvious deformity; alignment normal, pulse palpable and equal bilaterally, skin warm, dry, pink. Capillary refill less than 3 seconds. Distal sensation intact. SKIN: Warm, dry, no rash. NEURO: Alert and oriented x3. PSYCH: Normal mood and affect Course Course Level of Care: Express Care Visit Vital Signs Vital signs: Vital Signs Temperature 96.9 F L 10/31/24 16:19 Pulse Rate 81 10/31/24 16:19 Respiratory Rate 16 10/31/24 16:19 Blood Pressure 161/74 H 10/31/24 16:19 Pulse Oximetry 99 10/31/24 16:19 Temperature 96.9 F L 10/31/24 16:19 Pulse Rate 81 10/31/24 16:19 Respiratory Rate 16 10/31/24 16:19 Blood Pressure 161/74 H 10/31/24 16:19 Pulse Oximetry 99 10/31/24 16:19 reviewed MDM - Extremity (Nontraumatic) MDM Narrative Medical decision making narrative: Discussed physical exam findings and xray. Advised supportive measures and signs/symptoms to go to the ER. Florentino wrap applied. Referral for Ortho. Pt is appropriate for outpatient treatment and follow up. Imaging Data Radiologist's impression: ITS Impressions Elbow X-Ray 10/31/24 16:44 IMPRESSION: Ossification in the area of the lateral humeral condyle suggestive of ligamentous ossification or chip fractures. Follow-up advised. Critical Care Time Critical Care Time Critical Care Time: No Discharge Plan Discharge Clinical Impression: Elbow pain Patient Disposition: Home Condition: Stable Instructions: Elbow Fracture (DC) Additional Instructions: Rest. Avoid pushing, pulling, lifting or anything that worsens the symptoms. Tylenol 1000mg every 8 hours as needed. Alternate ice/heat to the site. Lidocaine or salon pas pain patch or use pain cream like icy/hot or biofreeze. Follow up with Orthopedics within one week. Go to the ER for worsening symptoms or concerns Patient Language: [place] Prescriptions: New prednisone 20 mg tablet 40 mg PO DAILY 5 Days Qty: 10 0RF No Action aspirin 81 mg tablet,delayed release (DR/EC) 81 mg PO DAILY Child's Fiber Select Gummies 1.5 gram tablet,chewable 1.5 g PO DAILY Advanced Gluc Meter Test Strip Strip See Rx Instructions .ROUTE .COMPLEX Dose Instruction: CHECK BLOOD SUGARS DAILY DIRECTED Rx Instructions: CHECK BLOOD SUGARS WEEKLY lancets [Ultra Thin Lancets] 30 gauge misc See Rx Instructions .ROUTE .COMPLEX Dose Instruction: USE TO TEST BLOOD GLUCOSE ONCE DAILY Rx Instructions: USE TO TEST BLOOD GLUCOSE WEEKLY Rybelsus 3 mg Tablet 3 mg PO DAILY cholecalciferol (vitamin D3) 50 mcg (2,000 unit) tablet 50 mcg PO DAILY Qty: 90 2RF Farxiga 5 mg tablet 5 mg PO DAILY Qty: 30 11RF simvastatin 20 mg tablet 20 mg PO QHS Qty: 90 1RF losartan 100 mg tablet 100 mg PO DAILY Qty: 90 1RF Follow-up/Referrals: Corwin Villafuerte MD [Physician] - PHYSICIAN,SECURITY ASSISTANT [Primary Care Provider] -
== END 2024-10-31 17:20 | disposition home or self-care (01) ==
DX: M25.521 Pain in right elbow (principal); I12.9 Hypertensive chronic kidney disease with stage 1 through stage 4 chronic kidney disease, or unspecified chronic kidney disease; E11.22 Type 2 diabetes mellitus with diabetic chronic kidney disease; N18.32 Chronic kidney disease, stage 3b; Z79.84 Long term (current) use of oral hypoglycemic drugs; M19.90 Unspecified osteoarthritis, unspecified site; Z86.718 Personal history of other venous thrombosis and embolism; K21.9 Gastro-esophageal reflux disease without esophagitis; E78.5 Hyperlipidemia, unspecified; E55.9 Vitamin D deficiency, unspecified; H26.9 Unspecified cataract; Z90.711 Acquired absence of uterus with remaining cervical stump
CPT/HCPCS: 73080; 99213; G0463

== ENCOUNTER 2024-11-06 11:27 | Outpatient (CLI) | payer MEDICARE, SELFPAY ==
--- NOTE | 2024-11-06 11:40 | ECG_ITS ---
Test Date: 2024-11-06 11:51:36 Measurements Intervals Bonaparte Rate: 52 P: 62 IA: 163 QRS: -9 QRSD: 91 T: 17 QT: 374 QTc: 351 Interpretive Statements SINUS BRADYCARDIA WITH SINUS ARRHYTHMIA LEFT VENTRICULAR HYPERTROPHY AND ST-T CHANGE [VOLTAGE CRITERIA PLUS ST/T ABNORMALITY] Compared to ECG 06/16/2024 11:31:17 Left ventricular hypertrophy now present ST (T wave) deviation now present Electronically Signed On 11-06-2024 19:14:20 CDT by Lucita Olmstead
--- OUTSIDE RECORDS SUMMARY | 2024-11-07 12:47 | XMS_ITS | Clinical Summary ---
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
--- OUTSIDE RECORDS SUMMARY | 2024-11-07 12:47 | XMS_ITS | Clinical Summary ---
Author Organization [facility] Care Team Providers Care Repair Armature Winder Name Role Phone Unavailable Primary Care Provider [...]
--- OUTSIDE RECORDS SUMMARY | 2024-11-07 12:47 | XMS_ITS | Clinical Summary ---
Author Organization [facility] Address [address] [place] [address] Care Team Providers Care Chrome Plater Name Role Phone Karime Curiel MD Unavailable [phone] Shadi Augustin MD Primary Care Provider Source Comments [facility],non-owned Affiliates and Associated Physician Practices is amultiple site organization consisting of ambulatory clinics and hospital sitesin [place], [place], [place] and [place]. This disclosure is being madepursuant to the Care Everywhere program and may not contain all information available regarding this patient. Last updated 18.[facility] Allergies Active Allergy Reactions Criticality Noted Date Comments Codeine 05/24/2010 Memory loss Iodine 05/24/2010 Flushed and vomiting Lisinopril Cough 07/10/2024 Medications * Be aware that medications may not be up to date on this document. Alwaysverify current medications with the patient. aspirin EC (ECOTRIN) 81 MG tablet Take 1 (one) tablet by mouth once daily Active ksb-vow-kamh-jessie ulf-na asc-c, MOVIPREP, (MOVIPREP) 100 G solutionIndicati ons:Hx of colonic polyps As instructed per written directions 1 Each 0 3 Active bisACODYL EC (DULCOLAX) 5 MG tabletIndication s:Hx of colonic polyps As instructed per written directions 2 Tab 0 3 Active dapagliflozin propanediol (Farxiga) 5 MG tabletIndication s:Type 2 Diabetes Mellitus Take 1 (one) tablet by mouth every morning Reasons: Type 2 Diabetes Active losartan (Cozaar) 100 MG tablet Take 1 (one) tablet by mouth once daily Active simvastatin (Zocor) 20 MG tablet Take 1 (one) tablet by mouth at bedtime Active vitamin D3 (Cholecalciferol ) 10 MCG (400 UNIT) tablet Take 1 (one) tablet by mouth once daily Active FIBER GUMMIES PO Act carlie semaglutide (Rybelsus) 3 MG tablet Take 3 mg by mouth once daily Take with a sip of water (< 4 oz) at least 30 minutes before any food, drink, or other meds. Active Active Problems Problem Noted Date Diagnosed Date Choledocholithiasis 10/21/2024 Type 2 diabetes mellitus with obesity 10/21/2024 Primary hypertension 10/21/2024 Diverticulosis 05/27/2013 Encounters Date Type Department Care Team Description 10/26/2024 Telephone [facility] - General Surgery [address] [place] [phone] Karin Cardenas MD Surgery Scheduling 10/26/2024 Orders Only [facility] - GI [address] [place] [phone] Coryk Rousseau RN Choledocholithiasis 10/21/2024 2:30 PM CDT Office Visit [facility] - General Surgery [address] [place] [phone] Karin Cardenas MD Choledocholithiasis (Primary Dx); Type 2 diabetes mellitus with obesity (HCC); Primary hypertension 10/21/2024 Telephone [facility] - General Surgery [address] [place] [phone] Karin Cardenas MD Surgery Scheduling 09/28/2024 Orders Only [facility] - GI [address] [place] [phone] Corky Rousseau RN Choledocholithiasis from Last 3 Months Family History Medical [...] = 0.6 oz pur e alcohol) Comments No Sex and Gender Information Value Date Recorded Sex Assigned at Not on file Legal Sex Female 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 Gender Identity Not on file Sexual Orientation Not on file Last Filed Vital Signs Vital Sign Reading Time Taken Comments Blood Pressure 133/79 10/21/2024 2:07 PM CDT Pulse 98 10/21/2024 2:07 PM CDT Temperature 36.1 C (97 F) 10/21/2024 2:07 PM CDT Respiratory Rate 12 07/17/2024 1:30 PM COMPENSATION EXPERT Oxygen Saturation 98% 10/21/2024 2:07 PM CDT Inhaled Oxygen Concentration - - Weight 81.6 kg (180 lb) 10/21/2024 2:07 PM CDT Height 162.6 cm (5' 4 ) 10/21/2024 2:07 PM CDT Body Mass Index 30.9 10/21/2024 2:07 PM CDT Plan of Treatment Upcoming Encounters Date Type Department Care Team (Latest Contact Info) Description 12/04/2024 7:15 AM CDT Hospital Encounter [facility] PERIOPERATIVE [address] [place] [phone] Karin Cardenas MD [facility] [address] [phone] Surgery General 12/04/2024 7:15 AM CDT - 12/04/2024 9:31 AM CDT Surgery [facility] PERIOPERATIVE [address] [place] [phone] Karin Cardenas MD [address] [place] [phone] ROBOTIC ASSISTED CHOLECYSTECTOMY Scheduled Procedures Name Priority Associated Diagnoses Date/Ti me ROBOTIC ASSISTED CHOLECYSTECTOMY Diagnosis unknown 12/04/2024 7:15 AM CDT Health Maintenance Due Date Last Done Comments BONE DENSITY TESTING 1950 COLOGUARD (AGES 45-75) - COLON CA SCREENING 1950 CT COLONOGRAPHY - COLON CA SCREENING 1950 FIT - COLON CA SCREENING 1950 FLEX SIG - COLON CA SCREENING 1950 MAMMOGRAM 1950 MEDICARE AWV 12 MONTHS 1950 HEPATITIS C SCREENING 04/16/1969 DIABETES-SERUM CREATININE 1969 DTAP/TDAP/TD VACCINES (1 - Tdap) 1970 PNEUMOCOCCAL VACCINE 50+ (1 of 2 - PCV) 1970 ZOSTER VACCINE (1 of 2) 2001 Respiratory Syncytial Virus (RSV) Vaccine Pt: or over 60 yrs (1 - Risk 60-74 years 1-dose series) 2011 COVID-19 VACCINE (2 - season) 2024 05/05/2021 COLON MONITORING 04/03/2024 04/03/2019, , 05/27/2013, Additional history exists Colorectal Cancer Screening 04/03/2024 DEPRESSION SCREENING 07/08/2024 DIABETES - URINE PROTEIN SCREENING 07/08/2024 DIABETES RETINOPATHY SCREENING 10/21/2024 DIABETES-FOOT EXAM WITH MONOFILAMENT 10/21/2024 DIABETES-HGB A1C 10/21/2024 INFLUENZA VACCINE (Season Ended) 2025 COLONOSCOPY - COLON CA SCREENING 04/03/2029 04/03/2019, 04/03/2019, 05/27/2013, Additional history exists HEPATITIS B VACCINE Aged Out No longe [...] Procedure Name Priority Date/Time Associated Diagnosis Comments ENDOSCOPY, COLON, DIAGNOSTIC Routine 04/03/2019 10:51 AM CDT from Last 3 Months or Most Recently Relevant to Health Maintenance Results * ENDOSCOPY, COLON, DIAGNOSTIC (04/03/2019 10:51 AM CDT) Report Endoscopy POC _ Patient Name: Marbella Rivero Procedure Date: 04/03/2019 10:51 AM Date of : 1950 Admit Type: Outpatient Age: 68 Gender: Female Ethnicity: Not or Race: Black or Attending MD: Jaime Lugo MD _ Procedure: Colonoscopy Indications: Personal history of colonic polyps Providers: Jaime Lugo MD (Doctor), Apryl Funk RN, Jessica Addison, Veterinary Pharmacologist Referring MD: Shadi Augustin MD (Referring MD) Medicines: Monitored Anesthesia Care Complications: No immediate complications. _ Procedure: Pre-Anesthesia Assessment: - Prior to the procedure, a History and Physical was performed, and patient medications and allergies were reviewed. The patient's tolerance of previous anesthesia was also reviewed. The risks and benefits of the procedure and the sedation options and risks were discussed with the patient. All questions were answered, and informed consent was obtained. Prior Anticoagulants: The patient has taken no previous anticoagulant or antiplatelet agents. ASA Grade Assessment: II - A patient with mild systemic disease. After reviewing the risks and benefits, the patient was deemed in satisfactory condition to undergo the procedure. After I obtained informed consent, the scope was passed under direct vision. Throughout the procedure, the patient's blood pressure, pulse, and oxygen saturations were monitored continuously. The Colonoscope was introduced through the anus and advanced to the cecum, identified by appendiceal orifice and ileocecal valve. The ileocecal valve, appendiceal orifice, and rectum were photographed. The quality of the bowel preparation was fair. Impression: - Diverticulosis. - No specimens collected. Findings: Diverticula were found in the colon. _ Recommendation: - Written discharge instructions were provided to the patient. - The signs and symptoms of potential delayed complications were discussed with the patient. - Patient has a contact number available for emergencies. - Return to normal activities tomorrow. - Resume previous diet. - Repeat colonoscopy in 5 years for surveillance. - Continue present medications. Procedure Code(s): --- Professional --- 59798, Colonoscopy, flexible; diagnostic, including collection of specimen(s) by brushing or washing, when performed (separate procedure) --- Technical --- 88169, Colonoscopy, flexible; diagnostic, including collection of specimen(s) by brushing or washing, when performed (separate procedure) Diagnosis Code(s): --- Professional --- Z86.010, Personal history of colonic polyps K57.30, Diverticulosis of large intestine without perforation or abscess without bleeding --- Technical --- Z86.010, Personal history of colonic polyps K57.30, Diverticulosis of large intestine without perforation or abscess without bleeding CPT copyright 2017 [employer]. All rights reserved. The codes documented in this report are preliminary and upon supervisor cook room review may be revised to meet current compliance requirements. Jaime Lugo MD 04/03/2019 11:17:11 AM This report has been signed electronically. Number of Addenda: 0 Note Initiated On: 04/03/2019 10:51 AM [facility] ENDOSCOPY 04/03/2019 10:5 1 AM CDT us Jaime Lugo MD GI PROCEDURE ORDERABLES Edited R esult - Final [facility] ENDOSCOPY from Last 3 Months or Most Recently Relevant to Health Maintenance [facility] Care Teams Chrome Plater Relationship Specialty Start Date End Date Shadi Augustin MD [address] [place] [phone] PCP - General Family Medicine 8/5/19 Karime Curiel MD Senior Adults Director Obstetrics and Gynecology 12/29/13
--- OUTSIDE RECORDS SUMMARY | 2024-11-07 12:47 | XMS_ITS | Clinical Summary ---
Author Organization [facility] Address [address] [place] [phone] Phone Care Team Providers Care Machine Wood Sander Name Role Phone Shadi Augustin MD Primary Care Provider Allergies Active Allergy Reactions Criticality Noted Date Comments Codeine 05/24/2010 Memory loss Iodine 05/24/2010 Flushed and vomiting Medications aspirin (ST DARRICK) 81 MG EC tablet Take 81 mg by mouth daily Active lisinopril-hydr oCHLOROthiazide (PRINZIDE) 10-12.5 MG per tablet Take 1 [...] MOUTH THREE TIMES DAILY NEEDED FOR DIZZINESS 1 Active metFORMIN XR 500 MG 24 hr tablet Take 1,000 mg by mouth 1 (one) time each day in the evening 2 Active Active Problems Problem Noted Date Diagnosed [...] at Not on file Legal Sex Female 1:18 PM MDT Gender Identity Not on file Sexual Orientation [...] Medium Risk (1 of 4 - PCV) 2001 COVID-19 Vaccine (2 - season) 2024 Influenza Vaccine (Season Ended) 2025 Insurance MEDICARE [facility] Care Teams Machine Wood Sander Relationship Specialty Start Date End Date Shadi Augustin MD [address] [place] [address] PCP - General Internal Medicine 03/17/21
== END 2024-11-06 11:28 | disposition home or self-care (01) ==
PROVIDERS: PCP Family Medicine; Visit Provider Family Medicine
DX: Z01.818 Encounter for other preprocedural examination (principal); I12.9 Hypertensive chronic kidney disease with stage 1 through stage 4 chronic kidney disease, or unspecified chronic kidney disease; N18.9 Chronic kidney disease, unspecified; R94.31 Abnormal electrocardiogram [ECG] [EKG]
CPT/HCPCS: 93005

== ENCOUNTER 2024-12-09 12:41 | Outpatient (CLI) | payer MEDICARE, SELFPAY ==
--- NOTE | ~2024-12-09 | US_ITS ---
EXAMINATION: US FNA w image guidance DATE: 12/09/2024 13:38 INDICATION: Right thyroid mass TECHNIQUE: A time-out was performed to verify the patient's name, date of , and procedure to be performed . The procedure and its benefits and risks were discussed with the patient. Risks specifically discus sed included bleeding and infection. The patient understood the risks and agreed to proceed. The neck was prepped and draped in the usual sterile manner. 5 mL 1% lidocaine was used for local anesthesia . 7 passes were made with a 25G needle into the lesion. Appropriate needle location was documented with continuous sonographic guidance. A sterile bandage was applied. There were no immediate compli cations. FINDINGS: Grayscale ultrasound images demonstrate biopsy needles advanced into the 2.3 cm TI-RADS 4 right thyro id nodule of concern. IMPRESSION: 1. Successful ultrasound-guided fine needle aspiration of the 2.3 cm TI-RADS 4 right thyroid nodule of concern.. Reviewed, dictated and finalized at location A.
--- OUTSIDE RECORDS SUMMARY | 2024-12-09 12:44 | XMS_ITS | Clinical Summary ---
Author Organization [facility] Care Team Providers Care Program Dir Name Role Phone Unavailable Primary Care Provider [...] Cologuard 2001 Immunochemical Fecal Occult Blood 2001 SARS-COV-2 Immunization ( season) 2024 05/05/2021, 09/23/2020, 09/02/2020 Influenza Immunization (Season Ended) 2025 04/10/2021, 03/25/2020, 05/05/2019, Additional history exists Respiratory Syncytial Virus (RSV) Immunization (Adult) (1 - 1-dose 75+ series) 2026 DTaP/Tdap/Td Immunization Discontinued 10/10/2011 TdaP Immunization Completed 10/10/2011 Pneumococcal Immunization (50+ years) Completed 07/07/2018, 11/02/2016 Zoster Immunization Completed 04/25/2021, Hepatitis B Immunization Aged Out No longer eligible based on patient's age to complete this topic Human Papillomavirus (HPV) Immunization Aged Out No longer eligible based on patient's age to complete this topic Meningococcal Immunization (ACWY) Aged Out No longer eligible based on patient's age to complete this topic Rotavirus Immunization Aged Out No lo nger eligible based on patient's age to complete this topic
--- OUTSIDE RECORDS SUMMARY | 2024-12-09 12:44 | XMS_ITS | Clinical Summary ---
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
--- OUTSIDE RECORDS SUMMARY | 2024-12-09 12:44 | XMS_ITS | Clinical Summary ---
Author Organization [facility] Address [address] [place] [phone] Phone Care Team Providers Care Parts Driver Name Role Phone Shadi Augustin MD Primary [...] 11:20 AM CDT Height 162.6 cm (5' 4) 03/22/2022 11:20 AM CDT Body Mass Index 34.43 03/22/2022 11:20 AM CDT Plan of Treatment Health Maintenance Due Date Last Done Comments Pneumococcal PPSV23/PCV13 65 + Years / Low and Medium Risk (1 of 4 - PCV) 2001 COVID-19 Vaccine (2 - season) 2024 Influenza Vaccine (Season Ended) 2025 Insurance MEDICARE [facility] Care Teams Parts Driver Relationship Specialty Start Date End Date Shadi Augustin MD [address] [place] [address] PCP - General Internal Medicine 03/17/21
--- OUTSIDE RECORDS SUMMARY | 2024-12-09 12:44 | XMS_ITS | Clinical Summary ---
Author Organization [facility] [employer] Address [address] [place] [address] Care Team Providers Care Rubber Stamp Dies Inspector Name Role Phone Karime Curiel MD Unavailable [phone] Shadi Augustin MD Primary Care Provider Source Comments [facility] [employer],non-owned Affiliates and Associated Physician Practices is amultiple site organization consisting of ambulatory clinics and hospital sitesin [place], [place], [place] and [place]. This disclosure is being madepursuant to the Care Everywhere program and may not contain all information available regarding this patient. Last updated 18.[facility] [employer] Allergies Active Allergy Reactions Criticality Noted Date Comments Codeine 05/24/2010 Memory loss Iodine 05/24/2010 Flushed and vomiting Lisinopril Cough 07/10/2024 Medications * Be aware that medications may not be up to date on this document. Alwaysverify current medications with the patient. aspirin EC (ECOTRIN) 81 MG tablet Take 1 (one) tablet by mouth once daily Active hny-iqo-bwpd-na sulf-na asc-c, MOVIPREP, (MOVIPREP) 100 G solutionIndicat ions:Hx of colonic polyps As instructed per written directions 1 Each 0 3 Active bisACODYL EC (DULCOLAX) 5 MG tabletIndicatio ns:Hx of colonic polyps As instructed per written directions 2 Tab 0 10/31/201 3 Active dapagliflozin propanediol (Farxiga) 5 MG tabletIndicatio ns:Type 2 Diabetes Mellitus Take 1 (one) tablet by mouth every morning Reasons: Type 2 Diabetes Active losartan (Cozaar) 100 MG tablet Take 1 (one) tablet by mouth once daily Active simvastatin (Zocor) 20 MG tablet Take 1 (one) tablet by mouth at bedtime Active vitamin D3 (Cholecalcifero l) 10 MCG (400 UNIT) tablet Take 1 (one) tablet by mouth once daily Active FIBER GUMMIES PO Active semaglutide (Rybelsus) 3 MG tablet Take 3 mg by mouth once daily Take with a sip of water (< 4 oz) at least 30 minutes before any food, drink, or other meds. Active ibuprofen (Motrin) 400 MG tablet Take 1 (one) tablet by mouth every 6 hours as needed 90 tablet 5 025 Active acetaminophen (Tylenol) 325 MG tablet Take 2 (two) tablets by mouth every 6 hours as needed for Fever or Pain Maximum allowable Acetaminophen amount = 4 Grams (4000 mg) / 24 hours. 90 tablet 5 025 Active oxyCODONE, immediate release, (Roxicodone) 5 MG tabletIndicatio ns:Choledocholi thiasis Take 1 (one) tablet by mouth every 6 hours as needed for Pain 8 tablet 5 025 Active polyethylene glycol 3350 (MiraLax) 17 g packet Take 17 (seventeen) g by mouth once daily for 14 days Take once daily while taking oxycodone to prevent constipation 14 packet 5 025 Active methocarbamol (Robaxin-750) 750 MG tablet Take 1 (one) tablet by mouth every 8 hours for 7 days 21 tablet 5 025 Active Active Problems Problem Noted Date Diagnosed Date Choledocholithiasis 10/21/2024 Type 2 diabetes mellitus with obesity 10/21/2024 Primary hypertension 10/21/2024 Diverticulosis 05/27/2013 Encounters Date Type Department Care Team Description 12/04/2024 7:27 AM CDT Anesthesia Event [facility] [address] [place] [address] Daylin Dillard MD Gill, Nicholas William, MD 12/04/2024 7:15 AM CDT - 12/04/2024 9:31 AM CDT Surgery [facility] [address] [place] [phone] Karin Cardenas MD ROBOTIC ASSISTED CHOLECYSTECTOMY 12/04/2024 5:32 AM CDT - 12/04/2024 1:49 PM CDT Hospital Encounter [facility] [address] [place] [phone] Karin Cardenas MD Surgery General Discharge Disposition: Home or Self Care 12/04/2024 Travel 10/26/2024 Telephone [facility] - General Surgery [address] [place] [phone] Karin Cardenas MD Surgery Scheduling 10/26/2024 Orders Only [facility] - GI [address] [place] [phone] Corky Rousseau RN Choledocholithiasis 10/21/2024 2:30 PM CDT Office Visit [facility] - General Surgery [address] [place] [address] Karin Cardenas MD Choledocholithiasis (Primary Dx); Type 2 diabetes mellitus with obesity (HCC); Primary hypertension 10/21/2024 Telephone [facility] - General Surgery [address] [place] [phone] Karin Cardenas MD Surgery Scheduling 09/28/2024 Orders Only [facility] - GI [address] [place] [phone] Corky Rousseau RN Choledocholithiasis from Last 3 [...] drink = 0.6 oz pur e alcohol) AUDIT-C Answer Date Recorded Q1: How often do you have a drink containing alcohol? Never 12/04/2024 Q2: How many drinks containi ng alcohol do you have on a typical day when you are drinking? Patient does not drink Q3: How often do you have si x or more drinks on one occasion? 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 Gender Identity Not on file Sexual Orientation Not on file Last Filed Vital Signs Vital Sign Reading Time Taken Comments Blood Pressure 131/70 12/04/2024 12:43 PM CDT Pulse 61 12/04/2024 12:43 PM CDT Temperature 36.4 C (97.5 F) 12/04/2024 11:06 AM CDT Respiratory Rate 18 12/04/2024 12:43 PM CDT Oxygen Saturation 99% 12/04/2024 12:43 PM CDT Inhaled Oxygen Concentration - - Weight 86.2 kg (190 lb) 12/04/2024 5:59 AM CDT Height 162.6 cm (5' 4) 12/04/2024 5:59 AM CDT Body Mass Index 32.61 12/04/2024 5:59 AM CDT Plan of Treatment Health Maintenance [...] Procedure Name Priority Date/Time Associated Diagnosis Comments CARDIAC RHYTHM STRIP ORDER 12/08/2024 9:53 PM CDT GLUCOSE - POINT OF CARE Routine 12/04/2024 10:47 AM CDT PATHOLOGY TISSUE EXAM (STL) Routine 12/04/2024 9:18 AM CDT Diagnosis unknown ENDOTRACHEAL TUBE NOTE Routine 12/04/2024 7:45 AM CDT FL LAP,CHOLECYSTECTOMY 12/04/2024 6:45 AM CDT Diagnosis unknown Special Needs NEEDS CARDIOVASCULAR TECHNOLOGIST, DAVINCI- NO REP GLUCOSE - POINT OF CARE Routine 12/04/2024 6:10 AM CDT ENDOSCOPY, COLON, DIAGNOSTIC Routine 04/03/2019 10:51 AM CDT from Last 3 Months or Most Recently Relevant to Health Maintenance Results * CARDIAC RHYTHM STRIP ORDER (12/08/2024 9:53 PM CDT) Narrative 12/08/2024 9:53 PM CDT Ordered by an unspecified provider. us Scanned Document CARDIAC SERVICES ORDERABLES Fin al Result * (ABNORMAL) GLUCOSE - POINT OF CARE (12/04/2024 10:47 AM CDT) Only the most recent of2 resultswithin the time period is included. Glucose WB/POC 194(H) 70 - 99 mg/dL 12/04/2024 10:57 AM CDT [facility] Specimen Type Arterial/C apillary 12/04/2024 10:57 AM CDT [facility] Blood BLOOD SPECIMEN / Unknown 12/04/2024 10:47 AM CDT 12/04/2024 10:57 AM CDT us Karin Cardenas MD LAB - POINT OF CARE ORDERABLES Final Result Performing Organization Address City/State/[facility] Co de Phone Number [facility] [address] [place], [place] [phone] * PATHOLOGY TISSUE EXAM (STL) (12/04/2024 9:18 AM CDT) Case Report Surgical Pathology Report Case: [id number] Authorizing Provider: Karin Cardenas MD Collected: 12/04/2024 09:18 AM Ordering Location: [facility] Received: 12/04/2024 11:01 AM Pathologist: Sandor Teran MD Specimen: Gallbladder 12/07/2024 12:31 PM CDT [facility] Final Diagnosis Gallbladder, cholecystectomy: - Chronic cholecystitis - Cholelithiasis 12/07/2024 12:31 PM CDT [facility] at 1231 CDT Clinical History Choledocholithiasis 12/07/2024 12:31 PM CDT [facility] Gross Description The requisition and specimen are identified with the patient's name (Marbella Rivero). Received in formalin, specimen A, gallbladder consists of a 6.5 x 3.3 x 3 cm fragmented gallbladder. The serosa is otherwise brambila-pink and glistening and the cystic duct is occluded. Sectioning shows a 4 x 2.6 x 2 cm aggregate of yellow-green multifaceted stones admixed with yellow gritty bile. The mucosa is diffusely denuded and the wall is 0.2 cm in thickness. Clerical Support Specialist sections are submitted in A1 with cystic duct en face. /LT 12/07/2024 12:31 PM CDT [facility] Microscopic Description Much of the biliary epithelium is absent. 12/07/2024 12:31 PM CDT [facility] Pathologist Location at [facility] 12/07/2024 12:31 PM CDT [facility] Disclaimer All histochemical and/or immunohistochemical results are interpreted with controls that demonstrate appropriate staining reactions before reporting results. Note on use of immunocytochemistry reagents: This test was developed and its performance characteristic determined by [facility], Department of Laboratory Medicine. It has not been cleared or approved by the U.S. Food and Drug Administration (FDA). The FDA has determined that such clearance or approval is not necessary. The test is used for clinical purpose. It should not be regarded as investigational or for research. This laboratory is certified to perform high complexity testing. The performance characteristics of the IHC/AJAY assays have been validated on formalin-fixed paraffin embedded tissues only. The assays have not been validated on decalcified tissues. Results should be interpreted with caution. 12/07/2024 12:31 PM CDT [facility] Embedded Images 12/07/2024 12:31 PM CDT [facility] Pathology/Cytolo gy ENTIRE GALLBLADDER / Unknown 12/04/2024 9:18 AM CDT 12/04/2024 11:01 AM CDT Comment:Pre-op diagnosis: Diagnosis unknown [R69] us Karin Cardenas MD LAB - PATHOLOGY/CYTOLOGY ORDERA BLES Final Result [facility] [address] [place] [address] * ETT LINE PERFORMABLE (12/04/2024 7:45 AM CDT) Narrative Ángela Veras APRN-CRNA - 12/04/2024 7:45 AM CDT Ángela Veras APRN-CRNA 12/04/2024 7:46 AM Endotracheal Tube Placement: Patient Location: OR. Intubation Event Date/Time: 12/04/2024 7:38 AM Procedure: intubation (15618) Procedure Section: Sedation: under general anesthesia. Indications for Airway Management: anesthesia Procedure pretreatments used? No Induction: standard IV Patient Position: sniffing and supine Mask Ventilation: easy with oral airway. Blade Type: Radha Blade Size: 3 Laryngoscopy View: grade 1 (full cords) Intubation Adjuncts: cricoid pressure and stylet Tube: endotracheal tube Placement: oral Tube type: cuff - inflated Tube Size (MM): 7 Depth of Insertion (CM): 20 Measured From: teeth Cuff volume (mL): 8 Placement Verified By: direct visualization, bilateral breath sounds, chest auscultation and CO2 monitor Tube secured with: adhesive tape. Dentition unchanged? Yes Difficult Airway? No. Procedure Start Time: 12/04/2024 7:38 AM. Staff Section Anesthesia Provider: Celestina Raymond, Performed the procedure Provider #1: Ángela Veras APRN-CRNA. Additional Comments: Atraumatic induction and intubation. Dentition remained intact ETT secured with tape . us Daylin Dillard MD GENERAL ANESTHESIA ORDERABLES Fi nal Result * ENDOSCOPY, COLON, DIAGNOSTIC (04/03/2019 10:51 AM CDT) Report Endoscopy POC _ Patient Name: Marbella Rivero Procedure Date: 04/03/2019 10:51 AM Date of : 1950 Admit Type: Outpatient Age: 68 Gender: Female Ethnicity: Not or Race: Black or Attending MD: Jaime Lugo MD _ Procedure: Colonoscopy Indications: Personal history of colonic polyps Providers: Jaime Lugo MD (Doctor), Apryl Funk RN, Jessica Addison, Ent Consultant Referring MD: Shadi Augustin MD (Referring MD) [...] present medications. Procedure Code(s): --- Professional --- 99617, Colonoscopy, flexible; diagnostic, including collection of specimen(s) by brushing or washing, when performed (separate procedure) --- Technical --- 40950, Colonoscopy, flexible; diagnostic, including collection of specimen(s) by brushing or washing, when performed (separate procedure) Diagnosis Code(s): --- Professional --- Z86.010, Personal history of colonic polyps K57.30, Diverticulosis of large intestine without perforation or abscess without bleeding --- Technical --- Z86.010, Personal history of colonic polyps K57.30, Diverticulosis of large intestine without perforation or abscess without bleeding CPT copyright 2017 [employer]. All rights reserved. The codes documented in this report are preliminary and upon english and reading instructor review may be revised to meet current compliance requirements. Jaime Lugo MD 04/03/2019 11:17:11 AM This report has been signed electronically. Number of Addenda: 0 Note Initiated On: 04/03/2019 10:51 AM [facility] 04/03/2019 10:5 1 AM CDT us Jaime Lugo MD GI PROCEDURE ORDERABLES Edited R esult - Final [facility] from Last 3 Months or Most Recently Relevant to Health Maintenance Insurance MEDICARE [employer] Care Teams Rubber Stamp Dies Inspector Relationship Specialty Start Date End Date Shadi Augustin MD [address] [place] [address] PCP - General Family Medicine 02/09/19 Karime Curiel MD Chalk Tester Obstetrics and Gynecology 12/29/13
--- NOTE | 2024-12-09 13:49 | CY_PTH ---
PATIENT: Marbella Rivero I LOC: [facility] U#:[id number] AGE/SX: 74/F ROOM: RE12/09/[address]: Moody Oconnor MD : 1950 BED: DIS: 12/09/2024 SPEC #: [id number] RECD: 12/09/24 13:54 STATUS: BENJI REQ #: [id number] AUGUSTUS: 12/09/24 13:[address]: Moody Oconnor DEPT: [facility] Cytology RECD BY: Sandi Mendoza MLT, ([facility]) ENTERED: 12/09/24 13:54 SP TYPE: Cytology OTHR DR: Shadi Augustin MD Tissues: A - FNA Thyroid Procedures: Hematoxylin and Eosin Stain Cell Block Fine Needle Aspiration Evaluation Fna Additional Pass Fine Needle Aspiration Pathologist
== END 2024-12-09 12:42 | disposition home or self-care (01) ==
PROVIDERS: PCP Family Medicine; Visit Provider Internal Medicine
DX: E04.1 Nontoxic single thyroid nodule (principal)
CPT/HCPCS: 10005; 88172; 88173; 88177; 88305